=== PATIENT | male | born 1950 | race Caucasian/White ===

== ENCOUNTER 2016-08-09 10:53 | Observation (INO) | payer MEDICARE ==
[~2016-08-09] VITALS: Ht 195.6 cm; Wt 93.3 kg
[2016-08-09] VITALS (11 sets, daily range): BP systolic 125–152; BP diastolic 74–99; PULSE 55–75; RESP 15–18; TEMP 96.3–98; O2SAT 94–99
[2016-08-09] MEDS ORDERED: BISO5TAB2 PO (11:04)
[2016-08-09] MEDS ORDERED: ASPI81CH CHEW (11:04)
[2016-08-09] MEDS ORDERED: SIMV40TA PO (11:04)
[2016-08-09] MEDS ORDERED: SODIUM CHLORIDE 0.9% FLUSH 5 ML FLUSH IVF PRN ×2 (11:15→13:00)
[2016-08-09] MEDS ORDERED: ASPIRIN 81 MG CHEW TAB PO ONE (11:15)
--- NOTE | 2016-08-09 11:15 | PD ---
HPI Chief Complaint: Chest Pain Time Seen by Provider: 10:56 Travel History International Travel<30 days: No Contact w/Intl Traveler<30days: No Traveled to known affect area: No History of Present Illness HPI Patient 66-year-old male presents emergency department for evaluation of left- sided chest and shoulder pain for the past 6 months. Patient states is not coming and going but does wax and wane. Patient [place] was hurting him worse and he told his about it. The states that this is the first time he is told her about it and they decided to come in and be seen. He does have a history of hyperlipidemia and hyper tension. Denies smoking history denies current artery disease denies diabetes. Patient states he had something similar happen to him approximately 30 years ago and had a stress test that time which was negative. He is from [place]. He states that the symptoms do not get worse when he exercises and exercises quite frequently. Denies any shortness of breath nausea or vomiting. Denies history of trauma. PFSH Past Medical History Hx Anticoagulant Therapy: Yes (asa) High Cholesterol: Yes Diminished Hearing: No GERD: Yes (hiatal hernia) Gout: Yes Genitourinary: Yes (only one kidney) Hypertension: Yes Immunizations Current: Yes Tetanus Vaccination: < 5 Years Influenza Vaccination: Yes Past Surgical History Genitourinary Surgery: Yes (testicles) Other Surgery: Yes (deviated septum) Family History Family Myocardial Infarction: Yes (parents) Family Hypercholesterolemia: Yes (parents) Social History Alcohol Use: Yes (1-2 daily) Tobacco Use: No Substance Use: No Allergies-Medications (Allergen,Severity, Reaction): Coded Allergies: No Known Allergies (Unverified , 08/09/16) Reported Meds & Prescriptions Reported Meds & Active Scripts Active Reported Simvastatin 40 Mg Tab 40 Mg PO HS Aspirin 81 Mg Chew 81 Mg CHEW DAILY Bisoprolol-Hydrochlorothiazide 5-6.25 Mg Tab 1 Tab PO DAILY Review of Systems Except as stated in HPI: all other systems reviewed are Neg Physical Exam Narrative GENERAL: Well-developed well-nourished no apparent distress SKIN: Warm and dry. HEAD: Atraumatic. Normocephalic. EYES: Pupils equal and round. No scleral icterus. No injection or drainage. ENT: No nasal bleeding or discharge. Mucous membranes pink and moist. NECK: Trachea midline. No JVD. CARDIOVASCULAR: Regular rate and rhythm. No murmur appreciated. RESPIRATORY: No accessory muscle use. Clear to auscultation. Breath sounds equal bilaterally. GASTROINTESTINAL: Abdomen soft, non-tender, nondistended. Hepatic and splenic margins not palpable. MUSCULOSKELETAL: No obvious deformities. No clubbing. No cyanosis. No edema. Patient states the pain is primarily in the anterior shoulder on the left upper chest wall overriding the lateral most pectoral muscle. No pain on passive range of motion. No pain on active range of motion. Pulses motor and sensory intact distally. NEUROLOGICAL: Awake and alert. No obvious cranial nerve deficits. Motor grossly within normal limits. Normal speech. PSYCHIATRIC: Appropriate mood and affect; insight and judgment normal. Data Data Last Documented VS Vital Signs Date Time Temp Pulse Resp B/P Pulse Ox O2 Delivery O2 Flow Rate FiO2 08/09/16 11:15 64 18 152/99 99 Room Air 145/83 08/09/16 11:04 98.0 Orders Electrocardiogram (08/09/16 11:10) Ckmb (Isoenzyme) Profile (08/09/16 11:10) Complete Blood Count With Diff (08/09/16 11:10) Comprehensive Metabolic Panel (08/09/16 11:10) Magnesium (Mg) (08/09/16 11:10) Prothrombin Time / Inr (Pt) (08/09/16 11:10) Act Partial Throm Time (Ptt) (08/09/16 11:10) Troponin I (08/09/16 11:10) Chest, Single Ap (08/09/16 11:10) Ecg Monitoring (08/09/16 11:10) Bilateral Bp Monitoring (08/09/16 11:10) Iv Access Insert/Monitor (08/09/16 11:10) Oximetry (08/09/16 11:10) Oxygen Administration (08/09/16 11:10) Aspirin Chew (Aspirin Chew) (08/09/16 11:15) Sodium Chloride 0.9% Flush (Ns Flush) (08/09/16 11:15) CKMB (08/09/16 11:00) CKMB% (08/09/16 11:00) Labs Laboratory Tests Test 08/09/16 11:00 White Blood Count 9.4 TH/MM3 Red Blood Count 6.02 MIL/MM3 Hemoglobin 18.4 GM/DL Hematocrit 56.4 % Mean Corpuscular Volume 93.6 FL Mean Corpuscular Hemoglobin 30.5 PG Mean Corpuscular Hemoglobin 32.6 % Concent Red Cell Distribution Width 13.3 % Platelet Count 240 TH/MM3 Mean Platelet Volume 8.4 FL Neutrophils (%) (Auto) 65.8 % Lymphocytes (%) (Auto) 23.9 % Monocytes (%) (Auto) 8.8 % Eosinophils (%) (Auto) 0.7 % Basophils (%) (Auto) 0.8 % Neutrophils # (Auto) 6.2 TH/MM3 Lymphocytes # (Auto) 2.2 TH/MM3 Monocytes # (Auto) 0.8 TH/MM3 Eosinophils # (Auto) 0.1 TH/MM3 Basophils # (Auto) 0.1 TH/MM3 CBC Comment DIFF FINAL Differential Comment Prothrombin Time 12.4 SEC Prothromb Time International 1.1 RATIO Ratio Activated Partial 28.5 SEC Thromboplast Time Sodium Level 144 MEQ/L Potassium Level 3.2 MEQ/L Chloride Level 105 MEQ/L Carbon Dioxide Level 27.6 MEQ/L Anion Gap 11 MEQ/L Blood Urea Nitrogen 18 MG/DL Creatinine 1.50 MG/DL Estimat Glomerular Filtration 47 ML/MIN Rate Random Glucose 120 MG/DL Calcium Level 8.8 MG/DL Magnesium Level 2.0 MG/DL Total Bilirubin 0.7 MG/DL Aspartate Amino Transf 19 U/L (AST/SGOT) Alanine Aminotransferase 24 U/L (ALT/SGPT) Alkaline Phosphatase 65 U/L Total Creatine Kinase 126 U/L Creatine Kinase MB 1.9 NG/ML Troponin I LESS THAN 0.02 NG/ML Total Protein 7.5 GM/DL Albumin 3.6 GM/DL [facility] Medical Decision Making Medical Screen Exam Complete: Yes Emergency Medical Condition: Yes Interpretation(s) EKG shows sinus arrhythmia at a rate of 63. Q waves in 3 and aVF undetermined significance. No acute ST-T changes. This an abnormal EKG. No previous for comparison. Differential Diagnosis Chest pain, atypical chest pain, left shoulder pain, left shoulder strain, PE briefly considered but highly unlikely patient has no shortness of breath symptoms, pneumonia unlikely. Narrative Course Patient roomed emerged Department, he appears well in no apparent distress. No chest pain on arrival. Location of his pain suggests a shoulder strain but the patient has no pain on motions of the shoulder. Initial workup shows hemoglobin elevated to 18, consider polycythemia vera versus dehydration but clinically the patient is not dehydrated. Creatinine minimally elevated to 1.5 a BUN of 18. Patient troponin is negative. Remains chest pain-free in emerged from her. Given aspirin normal saline bolus, discussed statistical analysis chest pain workup and given negative troponin and his fairly atypical presentation I highly doubt cardiac as a cause however the patient would like to be completely ruled out and for that reason I recommended a stress test. He is agreeable to staying chest pain center overnight. Diagnosis Primary Impression: Chest pain Silvestre Evans MD Aug 09, 2016 11:15
[2016-08-09 11:20] LABS: AUTOMATED NEUTROPHIL # 6.2 TH/MM3 (1.8-7.7); BASOPHIL # 0.1 TH/MM3 (0-0.2); BASOPHIL % 0.8 % (0.0-2.0); EOSINOPHIL # 0.1 TH/MM3 (0-0.4); EOSINOPHIL % 0.7 % (0.0-4.0); HEMATOCRIT 56.4 % (39.0-51.0); HEMO FLAGS DIFF FINAL; LYMPH % 23.9 % (9.0-44.0); LYMPHOCYTE # 2.2 TH/MM3 (1.0-4.8); MEAN CELL VOLUME 93.6 FL (80.0-100.0); MEAN CORPUSCULAR HEMOGLOBIN 30.5 PG (27.0-34.0); MEAN CORPUSCULAR HGB CONC 32.6 % (32.0-36.0); MONO % 8.8 % (0.0-8.0); NEUT % 65.8 % (16.0-70.0); PLATELET COUNT 240 TH/MM3 (150-450); RED BLOOD COUNT 6.02 MIL/MM3 (4.50-5.90); RED CELL DISTRIBUTION WIDTH 13.3 % (11.6-17.2); WHITE BLOOD COUNT 9.4 TH/MM3 (4.0-11.0)
[2016-08-09 11:28] LABS: CHLORIDE 105 MEQ/L (98-107); POTASSIUM 3.2 MEQ/L (3.5-5.1); SODIUM (NA) 144 MEQ/L (136-145)
--- NOTE | 2016-08-09 11:28 | RADHPO ---
EXAM DATE/TIME: 08/09/2016 11:19 [facility] COMPARISON: No previous studies available for comparison. INDICATIONS : Chest pain MEDICAL HISTORY : None. SURGICAL HISTORY : None. ENCOUNTER: Initial ACUITY: 3 months PAIN SCORE: 6/10 LOCATION: Bilateral chest FINDINGS: A single view of the chest demonstrates the lungs to be symmetrically aerated without evidence of mas s, infiltrate or effusion. The cardiomediastinal contours are unremarkable. Osseous structures are intact. CONCLUSION: No acute disease. Igor Cheema MD on August 09, 2016 at 11:26 Board Certified Radiologist. This report was verified electronically.
[2016-08-09 11:31] LABS: ANION GAP 11 MEQ/L (5-15); APTT (PATIENT) 28.5 SEC (24.3-30.1); BICARBONATE 27.6 MEQ/L (21.0-32.0); INTERNATIONAL NORMALIZED RATIO 1.1 RATIO; PROTHROMBIN TIME - PATIENT 12.4 SEC (9.8-11.6)
[2016-08-09 11:32] LABS: BLOOD UREA NITROGEN 18 MG/DL (7-18)
[2016-08-09 11:34] LABS: ALT (GPT) 24 U/L (12-78); AST (GOT) 19 U/L (15-37)
[2016-08-09 11:35] LABS: GLOMERULAR FILTRATION RATE 47 ML/MIN (>89)
[2016-08-09 11:36] LABS: TOTAL BILIRUBIN ADULT 0.7 MG/DL (0.2-1.0)
[2016-08-09 11:37] LABS: ALKALINE PHOSPHATASE 65 U/L (45-117); CREATINE KINASE 126 U/L (39-308)
[2016-08-09 11:49] LABS: CKMB 1.9 NG/ML (0.5-3.6)
[2016-08-09] MEDS ORDERED: SODIUM CHLOR 0.9% 1000 ML INJ 1,000 ML IV ONE (12:15)
[2016-08-09] MEDS ORDERED: ONDANSETRON HCL 4 MG/2 ML VIAL IV PRN (13:00)
[2016-08-09] MEDS ORDERED: ACETAMINOPHEN 500 MG CPLT PO PRN (13:00)
[2016-08-09] MEDS ORDERED: MORPHINE SULFATE 4 MG/ML INJ IV PRN (13:00)
[2016-08-09] MEDS ORDERED: NITROGLYCERIN 0.4 MG SL 25 TABS/BTL SL PRN (13:00)
[2016-08-09] MEDS ORDERED: ACETAMINOPHEN/HYDROcodone 325 MG/7.5 MG TAB PO PRN (13:00)
[2016-08-09] MEDS ORDERED: TEMAZEPAM 15 MG CAP PO PRN (13:00)
--- NOTE | 2016-08-09 13:27 | HHI.HP ---
[facility] Non-Staff Admission Diagnosis Chest Pain Diagnoses: (1) Chest pain Diagnosis: Principal (2) Hypertension Diagnosis: Secondary (3) Hyperlipidemia Diagnosis: Secondary (4) Family history of heart disease Diagnosis: Secondary Chief Complaint: Chest pain Travel History International Travel<30 Days: No Contact w/Intl Traveler <30 Da: No Traveled to Known Affected Are: No History of Present Illness 66 year-old male with known history of hypertension, hyperlipidemia presented to hospital because of chest pain. Patient came to the hospital for evaluation chest pain at the request of his . Patient has been having an left anterior chest pain for over 3 months. It is located in the left anterior part of the chest and describes it as a pressure type sensation, has been constant 3/10 over the last few months. He states that it does get worse whenever he does walk or exert himself, however if he sits and relaxes the pain will go back down to its normal constant pain. He states it is not exacerbated by any movement of his arm, heavy lifting or moving. He denies any nausea, vomiting, diaphoresis, shortness of breath, dyspnea, lightheadedness, dizziness. Patient states that it is been many years since she's had a stress test. He has not had any cardiac workup in the last few years. Patient was evaluated in emergency department recommended chest pain center observation. Review of Systems Constitutional: DENIES: Diaphoretic episodes, Fatigue, Fever, Weight gain, Weight loss, Chills, Dizziness, Change in appetite, Night Sweats Eyes: DENIES: Blurred vision, Diplopia, Eye inflammation, Eye pain, Vision loss , Double Vision Ears, nose, mouth, throat: DENIES: Vertigo, Nasal discharge, Throat pain, Ear Pain, Running Nose, Sinus Pain Respiratory: DENIES: Apneas, Cough, Snoring, Wheezing, Hemoptysis, Sputum production, Shortness of breath Cardiovascular: COMPLAINS OF: Chest pain, DENIES: Palpitations, Syncope, Dyspnea on Exertion, Lower Extremity Edema, Orthopnea Gastrointestinal: DENIES: Abdominal pain, Black stools, Bloody stools, Constipation, Diarrhea, Nausea, Vomiting, Difficulty Swallowing, Anorexia Neurologic: DENIES: Abnormal gait, Headache, Localized weakness, Paresthesias, Seizures, Speech Problems, Tremor, Poor Balance Past Family Social History Past Medical History Hypertension Hyperlipidemia Past Surgical History Plantar fasciitis surgery Hammertoe surgery Deviated septum surgery Surgery for undescended testicle Reported Medications Reported Meds & Active Scripts Active Reported Simvastatin 40 Mg Tab 40 Mg PO HS Aspirin 81 Mg Chew 81 Mg CHEW DAILY Bisoprolol-Hydrochlorothiazide 5-6.25 Mg Tab 1 Tab PO DAILY Allergies: Coded Allergies: No Known Allergies (Unverified , 08/09/16) Family History Reviewed is significant for both mother and father having coronary disease, coronary bypass surgery and from cardiac disease Social History Patient drinks one alcohol beverage daily. Denies any tobacco or illicit drugs Physical Exam Vital Signs Vital Signs Date Time Temp Pulse Resp B/P Pulse Ox O2 Delivery O2 Flow Rate FiO2 08/09/16 12:14 64 18 146/89 95 Room Air 08/09/16 11:15 64 18 152/99 99 Room Air 145/83 08/09/16 11:15 99 Room Air 08/09/16 11:15 99 Room Air 08/09/16 11:07 69 99 Room Air 08/09/16 11:04 98.0 69 18 152/99 99 Physical Exam GENERAL: This is a well-nourished, well-developed patient, in no apparent distress. SKIN: No rashes, ecchymoses or lesions. Cool and dry. HEAD: Atraumatic. Normocephalic. No temporal or scalp tenderness. EYES: Pupils equal round and reactive. Extraocular motions intact. No scleral icterus. No injection or drainage. ENT: Nose without bleeding, purulent drainage or septal hematoma. Throat without erythema, tonsillar hypertrophy or exudate. Uvula midline. Airway patent. NECK: Trachea midline. No JVD or lymphadenopathy. Supple, nontender, no meningeal signs. CARDIOVASCULAR: Regular rate and rhythm without murmurs, gallops, or rubs. RESPIRATORY: Clear to auscultation. Breath sounds equal bilaterally. No wheezes , rales, or rhonchi. GASTROINTESTINAL: Abdomen soft, non-tender, nondistended. No hepato-splenomegaly , or palpable masses. No guarding. MUSCULOSKELETAL: Extremities without clubbing, cyanosis, or edema. No joint tenderness, effusion, or edema noted. No calf tenderness. Negative Homans sign bilaterally. NEUROLOGICAL: Awake and alert. Cranial nerves II through XII intact. Motor and sensory grossly within normal limits. Five out of 5 muscle strength in all muscle groups. Normal speech. Laboratory Laboratory Tests Test 08/09/16 11:00 White Blood Count 9.4 Red Blood Count 6.02 Hemoglobin 18.4 Hematocrit 56.4 Mean Corpuscular Volume 93.6 Mean Corpuscular Hemoglobin 30.5 Mean Corpuscular Hemoglobin 32.6 Concent Red Cell Distribution Width 13.3 Platelet Count 240 Mean Platelet Volume 8.4 Neutrophils (%) (Auto) 65.8 Lymphocytes (%) (Auto) 23.9 Monocytes (%) (Auto) 8.8 Eosinophils (%) (Auto) 0.7 Basophils (%) (Auto) 0.8 Neutrophils # (Auto) 6.2 Lymphocytes # (Auto) 2.2 Monocytes # (Auto) 0.8 Eosinophils # (Auto) 0.1 Basophils # (Auto) 0.1 CBC Comment DIFF FINAL Differential Comment Prothrombin Time 12.4 Prothromb Time International 1.1 Ratio Activated Partial 28.5 Thromboplast Time Sodium Level 144 Potassium Level 3.2 Chloride Level 105 Carbon Dioxide Level 27.6 Anion Gap 11 Blood Urea Nitrogen 18 Creatinine 1.50 Estimat Glomerular Filtration 47 Rate Random Glucose 120 Calcium Level 8.8 Magnesium Level 2.0 Total Bilirubin 0.7 Aspartate Amino Transf 19 (AST/SGOT) Alanine Aminotransferase 24 (ALT/SGPT) Alkaline Phosphatase 65 Total Creatine Kinase 126 Creatine Kinase MB 1.9 Troponin I LESS THAN 0.02 Total Protein 7.5 Albumin 3.6 Result Diagram: 08/09/16 1100 08/09/16 1100 Assessment and Plan Assessment and Plan Chest pain, atypical: Patient does have increased risk factors to include age, hypertension, hyperlipidemia, family history of heart disease. We'll continue to trend cardiac enzymes and serial EKGs rule out any acute coronary event. If patient has been ruled out will pursue exercise stress test rule out any underlying ischemia. Will continue aspirin, nitroglycerin as needed, Lortab/ morphine for pain control Hypertension, hyperlipidemia: Resume home medications DVT prevention: Sequential compression devices Written by Lisandro Santo PA-C, acting as scribe for Dr. Abdul on 08/09/16 at 1330. The documentation accurately reflects the work and decisions performed face-to- face by Dr. Abdul on 08/09/16 at 1330. Lisandro Santo Aug 09, 2016 13:26 Naomy Abdul MD Aug 09, 2016 15:47
[2016-08-09 14:24] LABS: CREATINE KINASE 109 U/L (39-308)
[2016-08-09 14:36] LABS: CKMB 1.7 NG/ML (0.5-3.6)
[2016-08-09 17:18] LABS: CREATINE KINASE 107 U/L (39-308)
[2016-08-09 17:31] LABS: CKMB 1.7 NG/ML (0.5-3.6)
[2016-08-09] MEDS: SODIUM CHLORIDE 0.9% FLUSH 5 ML FLUSH IVF SCH (20:58)
[2016-08-09] MEDS ORDERED: PRAVASTATIN SOD 40 MG TAB PO SCH (21:00)
[2016-08-10] VITALS: BP 112/80; PULSE 50; RESP 18; TEMP 96.8; O2SAT 94
[2016-08-10 04:00] VITALS: BP 127/77; PULSE 83; RESP 18; TEMP 97.4; O2SAT 92
[2016-08-10 07:43] VITALS: O2SAT 96
[2016-08-10 07:46] LABS: AUTOMATED NEUTROPHIL # 5.1 TH/MM3 (1.8-7.7); BASOPHIL # 0.1 TH/MM3 (0-0.2); BASOPHIL % 0.8 % (0.0-2.0); EOSINOPHIL # 0.1 TH/MM3 (0-0.4); EOSINOPHIL % 1.2 % (0.0-4.0); HEMATOCRIT 53.5 % (39.0-51.0); HEMO FLAGS DIFF FINAL; LYMPH % 29.9 % (9.0-44.0); LYMPHOCYTE # 2.5 TH/MM3 (1.0-4.8); MEAN CELL VOLUME 92.6 FL (80.0-100.0); MEAN CORPUSCULAR HEMOGLOBIN 30.4 PG (27.0-34.0); MEAN CORPUSCULAR HGB CONC 32.8 % (32.0-36.0); MONO % 6.9 % (0.0-8.0); NEUT % 61.2 % (16.0-70.0); PLATELET COUNT 227 TH/MM3 (150-450); RED BLOOD COUNT 5.78 MIL/MM3 (4.50-5.90); RED CELL DISTRIBUTION WIDTH 13.5 % (11.6-17.2); WHITE BLOOD COUNT 8.4 TH/MM3 (4.0-11.0)
[2016-08-10 07:53] LABS: POTASSIUM 3.6 MEQ/L (3.5-5.1)
[2016-08-10 07:56] LABS: BICARBONATE 29.6 MEQ/L (21.0-32.0)
[2016-08-10 08:00] VITALS: BP 118/86; PULSE 65; PULSE 69; RESP 20; TEMP 97.1; O2SAT 96
[2016-08-10] MEDS ORDERED: ASPIRIN 325 MG TAB PO SCH (09:00)
[2016-08-10] MEDS ORDERED: ZIAC PO SCH ×2 (09:00)
[2016-08-10] MEDS: SODIUM CHLORIDE 0.9% FLUSH 5 ML FLUSH IVF SCH (10:08)
[2016-08-10] MEDS ORDERED: REGADENOSON INJ 0.4 MG/5 ML SYR IV ONE (11:19)
[2016-08-10 12:00] VITALS: BP 118/86; PULSE 65; RESP 20; TEMP 97.1; O2SAT 96
--- NOTE | 2016-08-10 12:16 | HHI.PR ---
Subjective Remarks Patient seen and examined today with Dr. Abdul. Patient denies any active chest pain this time. Awaiting cardiac workup with stress test to be complete Objective Vitals Vital Signs Date Time Temp Pulse Resp B/P Pulse Ox O2 Delivery O2 Flow Rate FiO2 08/10/16 08:00 69 08/10/16 08:00 97.1 65 20 118/86 96 08/10/16 07:43 96 21 08/10/16 04:00 97.4 83 18 127/77 92 08/10/16 00:00 96.8 50 18 112/80 94 08/09/16 21:03 96.3 55 16 126/76 97 08/09/16 20:10 55 08/09/16 19:43 94 21 08/09/16 18:01 75 08/09/16 17:11 96.9 58 15 125/74 96 08/09/16 16:17 68 18 141/77 95 Room Air 08/09/16 14:34 97 21 08/09/16 14:02 62 18 130/80 97 Room Air 08/09/16 12:14 64 18 146/89 95 Room Air I/O 08/09/16 08/09/16 08/09/16 08/10/16 08/10/16 08/10/16 07:00 15:00 23:00 07:00 15:00 23:00 Intake Total 1120 ml Balance 1120 ml Intake Oral 120 ml IV Total 1000 ml # Voids 2 2 # Bowel Movements 0 Result Diagram: 08/10/16 0730 08/10/16 0730 Objective Remarks GENERAL: Well-developed, well-nourished, in no acute distress. alert and orientated HEENT: Head is normocephalic without any lesions or masses noted. Facial features are symmetric. Eyes: Extraocular muscles are intact. Conjunctivae were clear. NECK: Supple without any masses. Trachea midline no deviation. No JVD, CARDIAC: Regular rhythm, regular rate. S1/S2 are heard. No murmurs gallops or rubs. LUNGS: Clear to auscultation bilaterally. No wheeze, rhonchi or rales. No use of accessory muscles on inspiration or expiration. ABDOMEN: Soft, nontender. Nondistended. Bowel sounds heard in all 4 quadrants. No organomegaly or masses. Negative rebound, negative guarding EXTREMITIES: No edema, pulses are equal bilaterally. No cyanosis or clubbing NEUROLOGY: Mood and affect appear appropriate. Cranial nerves II through XII grossly intact. Moving all extremities, speech is clear with Urinary Catheter: No Vascular Central Line Catheter: No A/P Assessment and Plan Chest pain, atypical: Patient does have increased risk factors to include age, hypertension, hyperlipidemia, family history of heart disease. Patient was ruled out for any acute coronary event with serial cardiac enzymes which are negative, serial EKGs shows sinus rhythm without any changes. Patient did undergo exercise stress test which did show abnormalities in the inferior lateral leads with ST depressions. Patient did develop PVCs during peak phase. Discussed with Dr Mcintyre, auto service station attendant who recommended nuclear stress test for further evaluation. Will continue aspirin, nitroglycerin as needed, Lortab/ morphine for pain control. Nuclear stress test was performed and was negative for any ischemia with low risk. Discussed with Client Support Professional again, he indicated that after further review of the exercise stress test, the patient could benefit from a formal Cardiology evaluation, The auto service station attendant offered his services and would see the patient tomorrow in his office. Tried to contact patient via phone and left message for the patient with the Cardiologists office number and to contact his office tomorrow AM to see the auto service station attendant tomorrow Hypertension, hyperlipidemia: Resume home medications DVT prevention: Sequential compression devices Written by Lisandro Santo PA-C, acting as scribe for Dr. Abdul on 08/10/16 at 1200. The documentation accurately reflects the work and decisions performed face-to- face by Dr. Abdul on 08/10/16 at 1200. Lisandro Santo Aug 10, 2016 12:16 Naomy Abdul MD Aug 10, 2016 13:21
--- NOTE | 2016-08-10 12:30 | RADHPO ---
EXAM DATE/TIME: 08/10/2016 11:38 [facility] COMPARISON: No previous studies available for comparison. INDICATIONS : Left chest and shoulder pain for 6 months. Abnormal EKG. Abnormal exercise treadmill test. DOSE: 26.2 mCi Tc99m Myoview at stress. 8.5 mCi Tc99m Myoview at rest. 0.4 mg Lexiscan STRESS SYMPTOMS: Dyspnea. EJECTION FRACTION: 66% MEDICAL HISTORY : Hypercholesterolemia. Hypertension. Hernia, hiatal. GERD. SURGICAL HISTORY : Testicles. ENCOUNTER: Initial ACUITY: 4 - 6 months PAIN SCALE: 3/10 LOCATION: Left chest TECHNIQUE: The patient underwent pharmacologic stress with infusion of prescribed dose. Continuous ECG tracing was monitored during stress. Gated SPECT imaging was performed after stress and conventional SPECT i maging was performed at rest. The examination was performed on a SPECT/CT scanner, both attenuation and non-corrected datasets were reviewed. FINDINGS: DISTRIBUTION: The maximum perfused segment at stress is in the septal wall. PERFUSION STUDY: The pattern of perfusion at stress shows some relative diminished perfusion to the apex without rever sibility to suggest ischemia. GATED STUDY: There is intact wall motion and thickening without hypokinetic or dyskinetic segments. CONCLUSION: 1. Mild apical thinning without infarct or ischemia. 2. Excellent wall motion throughout with an estimated ejection fraction of 66%. RISK CATEGORY: Low (<1% Annual Mortality Rate) Saúl Whitman MD on August 10, 2016 at 12:26 Board Certified Radiologist. This report was verified electronically.
--- NOTE | 2016-08-10 13:11 | HHI.DCPOC ---
Discharge Care Plan Diagnosis: (1) Chest pain Goals to Promote Your Health * To prevent worsening of your condition and complications * To maintain your health at the optimal level Directions to Meet Your Goals Take your medications as prescribed Follow your dietary instruction Follow activity as directed Keep your appointments as scheduled Take your immunizations and boosters as scheduled If your symptoms worsen call your PCP, if no PCP go to Urgent Care Center or Emergency Room Smoking is Dangerous to Your Health. Avoid second hand smoke Call the 24-hour hour crisis hotline for domestic abuse at Lisandro Santo Aug 10, 2016 13:11
--- NOTE | 2016-08-10 16:07 | EKG ---
Date Performed: 08/09/2016 Time Performed: 16:43:46 PTAGE: 66 years EKG: Sinus arrhythmia. Normal ECG PREVIOUS TRACING : 08/09/2016 14.07 Since previous tracing, no significant change noted DOCTOR: Suresh Mcintyre Interpretating Date/Time 08/10/2016 16:05:45
--- NOTE | 2016-08-10 16:07 | EKG ---
Date Performed: 08/09/2016 Time Performed: 14:07:18 PTAGE: 66 years EKG: Sinus arrhythmia. Possible inferior infarct - age undetermined Abnormal ECG PREVIOUS TRACING : 08/09/2016 10.52 Since previous tracing, no significant change noted DOCTOR: Suresh Mcintyre Interpretating Date/Time 08/10/2016 16:06:13
--- NOTE | 2016-08-10 16:08 | EKG ---
Date Performed: 08/09/2016 Time Performed: 10:52:18 PTAGE: 66 years EKG: Sinus arrhythmia. Possible inferior infarct - age undetermined Abnormal ECG NO PREVIOUS TRACING DOCTOR: Suresh Mcintyre Interpretating Date/Time 08/10/2016 16:06:19
--- NOTE | 2016-08-10 16:10 | TR ---
Date Performed: 08/10/2016 Time Performed: 09:10:18 DOCTOR: Suresh Mcintyre DRUG LIST: CLINICAL HISTORY: CHEST PAIN REASON FOR TEST: Chest pain REASON FOR ENDING: Completed Protocol OBSERVATION: Chest Pain: Limiting CONCLUSION: Patient tolerated PETROS protocol with Total Exercise Time=6:27 Maximum RV=483 % Max HR Achieved=86.0% Maximum XT=742/90, Testing stopped secondary to goals acheived. During peak exercis e, patient denied any chest pain. patient was having frequent PVC's, Patient had 0.5-[address] depress ion in inferior/lateral leads, Patient HR and BP appropriate response to exercise.During recovery pat ient was asymptomatic, ST segments returned to normal, HR and BP returned to baseline COMMENTS: ST depression noted in inferior and lateral leads. findings consistent with ischemia
--- NOTE | 2016-08-10 16:14 | TR ---
Date Performed: 08/10/2016 Time Performed: 11:37:25 DOCTOR: Suresh Mcintyre DRUG LIST: CLINICAL HISTORY: CHEST PAIN CHEST PAIN REASON FOR TEST: Chest pain REASON FOR ENDING: OBSERVATION: CONCLUSION: St depression again noted infero-laterally. Nuclear images pending COMMENTS:
[2016-08-27] MEDS ORDERED: DICL1GEL TOPICAL (10:29)
== END 2016-08-10 13:46 | disposition home or self-care (01) ==
LOC: PHED 10:53 → PHEDA 12:28 → PH3A 16:52
PROVIDERS: ADMIT Hospitalist; ATTEND Hospitalist
DX: R07.89 Other chest pain (principal); I10 Essential (primary) hypertension; E78.5 Hyperlipidemia, unspecified; I49.3 Ventricular premature depolarization; E78.00 Pure hypercholesterolemia, unspecified; R94.31 Abnormal electrocardiogram [ECG] [EKG]; K21.9 Gastro-esophageal reflux disease without esophagitis; M10.9 Gout, unspecified; Z82.49 Family history of ischemic heart disease and other diseases of the circulatory system
CPT/HCPCS: 71010; 78452; 80048; 80053; 82550; 82552; 83735; 84484; 85025; 85610; 85730; 93005; 93017; 99285; A9502; G0378; J2785; J7030

== ENCOUNTER 2016-08-14 05:51 | Day surgery (SDC) | payer MEDICARE ==
[~2016-08-14] VITALS: Ht 195.6 cm; Wt 93.2 kg
[~2016-08-14 05:51] MED LIST: ASPI81CH CHEW; BISO5TAB2 PO; SIMV40TA PO
[2016-08-14] MEDS ORDERED: SODIUM CHLOR 0.9% 1000 ML INJ 1,000 ML IV SCH ×2 (06:30→07:44)
[2016-08-14 06:40] VITALS: BP 150/89; PULSE 68; RESP 18; TEMP 97.6; O2SAT 95
[2016-08-14] MEDS ORDERED: TRIA37.53 PO (06:44)
[2016-08-14] MEDS ORDERED: FLAX100013 PO (06:44)
[2016-08-14] MEDS ORDERED: HEPARIN-NS/PF INJ 500 ML ONE (07:05)
[2016-08-14] MEDS ORDERED: MIDAZOLAM HCL 2 MG/2 ML VIAL ONE (07:06)
[2016-08-14] MEDS ORDERED: ONDANSETRON HCL 4 MG/2 ML VIAL IV PRN (07:45)
[2016-08-14] MEDS ORDERED: BACITRACIN OINT 0.9 GM PKT TOP ONE (07:45)
[2016-08-14] MEDS ORDERED: LIDOCAINE HCL 1% 50 ML VIAL INFIL PRN (07:45)
[2016-08-14] MEDS ORDERED: METOCLOPRAMIDE HCL 10 MG/2 ML VIAL IV PRN (07:45)
[2016-08-14] MEDS ORDERED: SODIUM CHLOR 0.9% 250 ML INJ 250 ML IV PRN (07:45)
[2016-08-14] MEDS ORDERED: LORazepam 2 MG/ML VIAL IV PRN (07:45)
[2016-08-14] MEDS ORDERED: SODIUM CHLORIDE 0.9% FLUSH 10 ML FLUSH IV FLUSH PRN (07:45)
[2016-08-14] MEDS ORDERED: ATROPINE SULFATE 1 MG/ML VIAL IV PRN (07:45)
[2016-08-14] MEDS ORDERED: MISC INFORMATION XX ONE (07:45)
[2016-08-14] MEDS ORDERED: IOHEXOL 350 MG/ML 100 ML BTL (for Cath Lab) OTHER ONE (07:50)
[2016-08-14] MEDS ORDERED: SODIUM CHLORIDE 0.9% FLUSH 10 ML FLUSH IV FLUSH SCH (09:00)
--- NOTE | 2016-08-14 09:52 | MA ---
cc: SURESH MCINTYRE MD DATE: 08/14/2016 PROCEDURE Cardiac catheterization. DETAILS OF PROCEDURE The patient was prepped and draped in the usual fashion. A 6 sheath was inserted percutaneously in the right femoral artery. Coronary angiography was performed with a Iona 5 catheter. A 4 and 4.5 did not fit the left system. The right coronary was cannulated with a right 4. Left ventriculography was done with a pigtail catheter. RESULTS HEMODYNAMICS Aortic pressure was 123/66. Left ventricular end-diastolic pressure was 4. There was no gradient across the aortic valve. CORONARY ANGIOGRAPHY The left main coronary was normal. The left anterior descending artery was rather densely calcified in its proximal portion. In the midportion of the artery a 75% stenosis was present. There were luminal irregularities throughout the remainder of the artery but no high-grade stenoses were seen. The left circumflex artery arose from the left main. The circumflex itself was totally occluded after the takeoff of a large obtuse marginal branch and collateralization was seen from collaterals from the circumflex system. The first obtuse marginal branch demonstrated a 90% stenosis in its proximal portion with luminal irregularities in its proximal portion but relatively free from disease in the distal portion of the artery. A ramus intermedius branch also demonstrated a 75-80% stenosis in its midportion. The right coronary was anatomically dominant. It was totally occluded in the midportion with bridging collaterals noted to fill out the distal portion of the artery as well as faint collaterals from the left system. LEFT VENTRICULOGRAPHY The left ventricle was normal in size. Overall left ventricular ejection fraction was normal at approximately 65%. The ascending aorta appeared to be rather significantly dilated. CONCLUSIONS The patient demonstrates rather significant three-vessel coronary artery disease as described above with what appears to be an ascending aortic aneurysm. CTA will be ordered to further evaluate his ascending aorta and a surgical consult will be done to evaluate for CABG to the LAD, ramus, obtuse marginal, distal right and hopefully distal circumflex. Suresh Mcintyre MD DLW/BT /7:51 AM /10:51 AM
[2016-08-14] MEDS ORDERED: IOHEXOL 350 MG/ML 10 ML VIAL (for RAD DIAG) IV ONE (09:56)
--- NOTE | 2016-08-14 10:31 | RADRPT ---
EXAM DATE/TIME: 08/14/2016 09:28 [facility] COMPARISON: No previous studies available for comparison. INDICATIONS : Aneurysm ascending aorta. IV CONTRAST: 100 cc Omnipaque 350 (iohexol) IV RADIATION DOSE: 7.37 CTDIvol (mGy) MEDICAL HISTORY : Hypertension. Hernia, hiatal. SURGICAL HISTORY : None. ENCOUNTER: Initial ACUITY: 1 day PAIN SCALE: 0/10 LOCATION: chest abdomen TECHNIQUE: Volumetric scanning was performed using a multi-row detector CT scanner. The data was post processed with a variety of visualization algorithms including full volume maximum intensity projection, multi -planar sliding thin slab reformation, curved planar reformation, and surface rendering techniques. Using automated exposure control and adjustment of the mA and/or kV according to patient size, radiat ion dose was kept as low as reasonably achievable to obtain optimal diagnostic quality images. FINDINGS: LUNGS: There is no consolidation or pneumothorax. No concerning pulmonary nodule is visualized. No pleural fluid is present. MEDIASTINUM: There are coronary artery calcifications identified. There is no evidence of mediastinal mass or flores opathy. ABDOMEN: The liver and spleen are free of focal defects. The gallbladder and pancreas demonstrate no abnormali ty. The adrenal glands are normal. The kidneys demonstrate no evidence of solid renal mass or hydrone phrosis. The left kidney is chronically atretic. No free fluid or abdominal masses are identified. No para-aortic adenopathy is seen. PELVIS: No evidence of free fluid or pelvic mass. No abnormally enlarged inguinal or retroperitoneal lymph no andres are present. The bladder is unremarkable. There is some induration in the subcutaneous tissues of the medial right groin region, presumably some hematoma and swelling associated with recent catheter procedure. THORACIC AORTA: The ascending thoracic aorta is aneurysmal to about 5.2 cm. The arch caliber normalizes and classical arch vessel branching is identified. The remainder of the thoracic aorta is normal in caliber and ap pearance with no evidence of stenosis or dissection. ABDOMINAL AORTA: The aorta is normal in caliber without aneurysm or dissection. Mild atherosclerotic changes The righ t renal artery is normal. Left renal artery is atretic. Variance mesenteric arterial anatomy is ident ified. The left gastric artery arises directly from the aorta. The celiac and SMA arise from a common trunk. PELVIC VESSELS: Mild atherosclerotic changes. No evidence of aneurysm, dissection or significant stenosis. CONCLUSION: 5.2 cm ascending thoracic aortic aneurysm. 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 Mild swelling and hematoma in the right groin. Joseph Kirkpatrick MD on August 14, 2016 at 10:14 Board Certified Radiologist. This report was verified electronically.
[2016-08-14] MEDS ORDERED: SODIUM CHLORIDE 0.9% FLUSH 10 ML FLUSH IVF PRN (11:30)
[2016-08-14 12:17] LABS: BLOOD, URINE NEG (NEG); COMMENT (UR) CULT NOT INDICATED; CULTURE IF INDICATED CULT NOT INDICATED; GLUCOSE,URINE TRACE mg/dL (NEG); KETONE, URINE NEG (NEG); MUCUS URINE FEW /lpf (OCC); NITRITE,URINE NEG (NEG); PH, URINE 7.5 (5.0-8.5); URINE COLOR LIGHT-YELLOW (YELLW/STRAW)
--- NOTE | 2016-08-14 12:44 | MB ---
cc: TIMOTHY KELLEY MD DATE OF CONSULTATION: 08/14/2016 DATE OF : 1950 HISTORY OF PRESENT ILLNESS A 66-year-old male who presented to the emergency department in [place] for chest pain that he has been having intermittently off and on with exertion for the past one month. He thought it was more muscular tightness. The pain was in his left upper chest and shoulder. He was a 23-hour observation at [place], had a negative troponin, however, he did undergo exercise stress test which showed some ST depression in the inferior and lateral leads consistent with some ischemia. He then underwent a myocardial perfusion scan which showed some mild apical thinning without infarct or ischemia, EF of 66%. He was brought in today for a heart catheterization by Dr. Suresh Mcintyre. EF was 60%, 75% distal LAD, circumflex 90%, OM 90%, RCA 100%. We were consulted to evaluate for coronary artery bypass grafting. PAST MEDICAL HISTORY 1. Hypertension. 2. Hyperlipidemia. PAST SURGICAL HISTORY 1. Testicle surgery as a child. 2. Nasal surgery. 3. Hammertoe surgery. ALLERGIES He has no known allergies. MEDICATIONS Home medications include: 1. Aspirin. 2. Simvastatin. 3. Dyazide. 4. Flaxseed. FAMILY HISTORY Both parents had coronary artery bypass. Mother in her 90s. Father in his 80s. SOCIAL HISTORY No tobacco. Has a Scotch drink before dinner. No illicit drugs. 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 REVIEW OF SYSTEMS GENERAL: No night sweats, fever, heat and cold intolerance. SKIN: No psoriasis, itching or hives. HEENT: No blurred vision or hearing loss. RESPIRATORY: No cough or shortness of breath. CARDIOVASCULAR: Positive for chest pain as above in the HPI. GASTROINTESTINAL: No diarrhea or vomiting. GENITOURINARY: No burning, frequency or urgency. CANDY ROLLER: No history of TIA, CVA, seizure disorder. ENDOCRINE: Diabetes. PHYSICAL EXAMINATION VITAL SIGNS: On exam blood pressure 150/80, heart rate 68, afebrile. GENERAL: Patient is awake and alert, in no acute distress. HEENT: Head is normocephalic, atraumatic. Pupils equal and reactive. Oral mucosa pink and moist. NECK: Supple. No JVD. HEART: Heart sounds S1, S2, regular rate and rhythm. No rubs, murmurs or gallops. LUNGS: Clear to auscultation. No wheezes, rales or rhonchi. ABDOMEN: Soft, nontender. No masses or organomegaly. EXTREMITIES: No cyanosis, clubbing or edema. IMAGING CTA of the aorta showed a 5.2 ascending aortic aneurysm, chronically atretic left kidney. A carotid ultrasound is pending. Chest x-ray is pending. EKG EKG is normal sinus rhythm. 2-D ECHO A 2-D echo is pending. IMPRESSION This is a 66-year-old male with positive stress test, positive cardiac catheterization with four-vessel disease, EF of 60%, also a 5.2 ascending aortic aneurysm. PLAN The plan will be to bring the patient back on August 27 for surgery including coronary artery bypass grafting, ascending aortic aneurysm repair and related procedures. Dictated by: MADELINE Watson Timothy SOTO /11:31 AM /12:43 PM
--- NOTE | 2016-08-14 13:03 | RADRPT ---
EXAM DATE/TIME: 08/14/2016 11:42 [facility] COMPARISON: No previous studies available for comparison. INDICATIONS : PreOp cardiac surgery. MEDICAL HISTORY : Hypercholesterolemia. Gastroesophageal reflux disease. Hypertension. Gout. Measles. Hiatal hernia. SURGICAL HISTORY : Testicle surgery. Deviated septum repair. ENCOUNTER: Initial ACUITY: 1 day PAIN SCORE: 0/10 LOCATION: Bilateral neck PEAK SYSTOLIC VELOCITIES (cm/sec): ICA/CCA RATIO: Right: 0.8 Left: 0.8 ICA: Right: 64 Left: 73 CCA: Right: 80 Left: 88 ECA: Right: 95 Left: 102 VERTEBRAL: Right: 42 antegrade Left: 49 antegrade Elevated flow velocities and ICA/CCA ratios have been found to correlate with increased degrees of vessel stenosis, calculated as percentage of diameter relative to a normal segment of distal ICA/CCA FINDINGS: RIGHT CAROTID: Minimal plaquing in the right carotid bulb extending up into the internal. The waveforms are within normal limits. LEFT CAROTID: Minimal plaquing in the left carotid bulb extending up into the internal. The waveforms are within n ormal limits. VERTEBRAL ARTERIES: Antegrade flow is seen in both vertebral arteries. MISCELLANEOUS: None. CONCLUSION: 1. Minimal plaquing in both carotid systems. 2. However, no Doppler findings of a hemodynamically significant stenosis. Antegrade flow in both alpesh tebral arteries. Saúl Whitman MD on August 14, 2016 at 12:57 Board Certified Radiologist. This report was verified electronically.
--- NOTE | 2016-08-14 13:06 | RADRPT ---
EXAM DATE/TIME: 08/14/2016 11:55 [facility] COMPARISON: No previous studies available for comparison. INDICATIONS : PreOp cardiac surgery. MEDICAL HISTORY : Hypercholesterolemia. Gastroesophageal reflux disease. Hypertension. Gout. Measles. Hiatal hernia. SURGICAL HISTORY : Testicle surgery. Deviated septum repair. ENCOUNTER: Initial ACUITY: 1 day PAIN SCORE: 0/10 LOCATION: Bilateral legs. TECHNIQUE: Venous ultrasound of the left and right leg was performed from the inguinal ligament to the proximal calf. Real-time, color Doppler and spectral tracing, compression and augmentation techniques were us ed. FINDINGS: RIGHT LEG: There is normal compressibility of the deep venous system from the inguinal region to the proximal ca lf. No echogenic clot is seen in the lumen of the common femoral, femoral, popliteal, and posterior tibial veins. There is a normal response of the venous system to proximal and distal augmentation an d respiration. LEFT LEG: There is normal compressibility of the deep venous system from the inguinal region to the proximal ca lf. No echogenic clot is seen in the lumen of the common femoral, femoral, popliteal, and posterior tibial veins. There is a normal response of the venous system to proximal and distal augmentation an d respiration. CONCLUSION: Negative exam. No sonographic or Doppler findings of deep venous thrombosis in either lower extr emity. Saúl Whitman MD on August 14, 2016 at 13:04 Board Certified Radiologist. This report was verified electronically.
--- NOTE | 2016-08-14 13:11 | RADRPT ---
EXAM DATE/TIME: 08/14/2016 12:02 [facility] COMPARISON: No previous studies available for comparison. INDICATIONS : PreOp cardiac surgery. MEDICAL HISTORY : Hypercholesterolemia. Gastroesophageal reflux disease. Hypertension. Gout. Measles. Hiatal hernia. SURGICAL HISTORY : Testicle surgery. Deviated septum repair. ENCOUNTER: Initial ACUITY: 1 day PAIN SCORE: 0/10 LOCATION: Bilateral legs. GREATER SAPHENOUS VEIN THIGH: PROXIMAL: Right 4 mm Left 6 mm MID: Right 4 mm Left 6 mm DISTAL: Right 2 mm Left 3 mm CALF: PROXIMAL: Right 2 mm Left 3 mm MID: Right 2 mm Left 2 mm DISTAL: Right 3 mm Left 3 mm FINDINGS: The venous system of the lower extremities are patent by color Doppler imaging. Measurements of the leg veins (in mm) are listed above. CONCLUSION: 1. Greater saphenous veins are patent bilaterally. 2. Right measures between 2 and 4 mm. The left measures between 2 and 6 mm. Saúl Whitman MD on August 14, 2016 at 13:09 Board Certified Radiologist. This report was verified electronically.
[2016-08-14 13:19] LABS: AUTOMATED NEUTROPHIL # 5.6 TH/MM3 (1.8-7.7); BASOPHIL # 0.1 TH/MM3 (0-0.2); EOSINOPHIL % 0.5 % (0.0-4.0); HEMATOCRIT 50.3 % (39.0-51.0); HEMO FLAGS DIFF FINAL; LYMPH % 23.6 % (9.0-44.0); MEAN CELL VOLUME 91.9 FL (80.0-100.0); MEAN CORPUSCULAR HEMOGLOBIN 31.1 PG (27.0-34.0); MEAN CORPUSCULAR HGB CONC 33.8 % (32.0-36.0); MONO % 10.2 % (0.0-8.0); NEUT % 64.7 % (16.0-70.0); PLATELET COUNT 208 TH/MM3 (150-450); RED BLOOD COUNT 5.48 MIL/MM3 (4.50-5.90); WHITE BLOOD COUNT 8.6 TH/MM3 (4.0-11.0)
--- NOTE | 2016-08-14 15:08 | RADRPT ---
EXAM DATE/TIME: 08/14/2016 14:16 [facility] COMPARISON: CHEST SINGLE AP, August 09, 2016, 11:19. INDICATIONS : Evaluate for pneumonia,pneumothorax and communicable diseases. Pre-op open heart MEDICAL HISTORY : Hypercholesterolemia. Hypertension Hiatal hernia. Gout SURGICAL HISTORY : Testicular ENCOUNTER: Initial ACUITY: 1 day PAIN SCORE: 0/10 LOCATION: chest FINDINGS: PA and lateral views of the chest demonstrate the lungs to be symmetrically aerated without evidence of mass, infiltrate or effusion. The cardiomediastinal contours are unremarkable. Osseous structure s are intact. CONCLUSION: 1. No acute cardiopulmonary findings Cruzito Hernandez MD on August 14, 2016 at 15:06 Board Certified Radiologist. This report was verified electronically.
[2016-08-14 16:39] LABS: ANION GAP 8 MEQ/L (5-15); BICARBONATE 29.2 MEQ/L (21.0-32.0); BLOOD UREA NITROGEN 22 MG/DL (7-18); CHLORIDE 102 MEQ/L (98-107); GLOMERULAR FILTRATION RATE 58 ML/MIN (>89); POTASSIUM 3.1 MEQ/L (3.5-5.1); SODIUM (NA) 139 MEQ/L (136-145)
[2016-08-14 17:04] LABS: HEMOGLOBIN A1b 1.5 %; HEMOGLOBIN Ao 85.7 %; HEMOGLOBIN P3 3.7 %
--- NOTE | 2016-08-14 19:03 | EC ---
Study Study Date:08/14/2016 STUDY CONCLUSIONS SUMMARY - Left ventricle: The cavity size was normal. Wall thickness was normal. Systolic function was normal. The estimated ejection fraction was 55%. Wall motion was normal; there were no regional wall motion abnormalities. - Aortic valve: Mild to moderate regurgitation. - Aortic root: The aortic root was markedly enlarged. Recommend CT angiogram of thoracic aorta. If LV function is below 40, please consider prescribing an ACEI or ARB or document rationale for non-use. PROCEDURE DATA STUDY STATUS: Elective. Procedure: Transthoracic echocardiography. Image quality was good. Scanning was performed from the parasternal, apical, and subcostal acoustic windows. Study completion: The patient tolerated the procedure well. Transthoracic echocardiography. M-mode, complete 2D, complete spectral Doppler, and color Doppler. Patient status: Inpatient. CARDIAC ANATOMY LEFT VENTRICLE: The cavity size was normal. Wall thickness was normal. Systolic function was normal. The estimated ejection fraction was 55%. Wall motion was normal; there were no regional wall motion abnormalities. AORTIC VALVE: Trileaflet; normal thickness leaflets. Doppler: Transvalvular velocity was within the normal range. There was no stenosis. Mild to moderate regurgitation. Peak gradient: 12mm Hg (S). AORTA: Aortic root: The aortic root was markedly enlarged. Recommend CT angiogram of thoracic aorta. MITRAL VALVE: Structurally normal valve. Doppler: Transvalvular velocity was within the normal range. There was no evidence for stenosis. Trace regurgitation. LEFT ATRIUM: The atrium was normal in size. RIGHT VENTRICLE: The cavity size was normal. Wall thickness was normal. PULMONIC VALVE: Doppler: Transvalvular velocity was within the normal range. There was no evidence for stenosis. No regurgitation. TRICUSPID VALVE: Structurally normal valve. Doppler: Transvalvular velocity was within the normal range. Trace regurgitation. PULMONARY ARTERY: The main pulmonary artery was normal-sized. Systolic pressure was within the normal range. RIGHT ATRIUM: The atrium was normal in size. PERICARDIUM: There was no pericardial effusion. SYSTEMIC VEINS: Inferior vena cava: The vessel was normal in size. BASIC MEASUREMENTS ADULT Normal Left ventricle LV internal dimension, ED, chordal level, *55 mm 43-52 PLAX LV internal dimension, ES, chordal level, *42.9 mm 23-38 PLAX Fractional shortening, chordal level, PLAX *22 % >29 LV posterior wall thickness, ED 8.09 mm IVS/LVPW ratio, ED 1.13 <1.3 Ventricular septum Septal thickness, ED 9.15 mm Aortic valve Leaflet separation 19 mm 15-26 Left atrium Anterior-posterior dimension 30 mm Right ventricle RV internal dimension, ED, PLAX 19.7 mm 19-38 BASIC MEASUREMENTS ADULT Normal Aortic valve Leaflet separation 19 mm 15-26 Aorta Root diameter, ED *48 mm 20-37 DOPPLER MEASUREMENTS ADULT Normal Aortic valve Peak velocity, S 171 cm/s Peak gradient, S 12 mm Hg Mitral valve Peak E-wave velocity 44.9 cm/s Peak A-wave velocity 79 cm/s Peak E/A ratio 0.6 Tricuspid valve Regurgitant peak velocity 137 cm/s Peak RV-RA gradient, S 8 mm Hg Maximal regurgitant velocity 137 cm/s LEGEND: Mean values are shown as u=mean value. Asterisk (*) leonardo values outside specified normal range. Prepared and signed by Willard Flores [id number]
[2016-08-14] MEDS ORDERED: SODIUM CHLORIDE 0.9% FLUSH 10 ML FLUSH IVF SCH (21:00)
--- NOTE | 2016-08-15 16:16 | EKG ---
Date Performed: 08/14/2016 Time Performed: 10:52:22 PTAGE: 66 years EKG: Sinus rhythm Since previous tracing, no significant change noted Normal ECG PREVIOUS TRACING : 08/09/2016 16.43 DOCTOR: Jeffrey Castro Interpretating Date/Time 08/15/2016 16:16:36
[2016-08-15] MEDS ORDERED: ASPI81TA11 PO (19:03)
[2016-08-15] MEDS ORDERED: METO25TA3 PO (19:03)
--- NOTE | 2016-08-17 08:07 | MB ---
cc: TIMOTHY KELLEY MD DATE OF CONSULTATION: 08/14/2016 DATE OF : 1950 HISTORY OF PRESENT ILLNESS A 66-year-old male patient of Dr. Suresh Mcintyre, Dr. Awilda Andres, apparently was seen for a recent hospitalization for chest pain. Went to [facility] from the to the for chest pain, 23-hour observation, had a workup including two stress tests and was told to come in today to talk about the results. He had some ST depression in the inferior lateral leads consistent with ischemia on a stress test, then he underwent myocardial perfusion scan which showed mild apical thinning without infarct or ischemia, EF of 66%. Dr. Mcintyre felt that it was necessary to undergo further testing to include coronary artery catheterization which showed middistal LAD 75% stenosed, circ 90%, the OM 90%, the RCA 100%, EF of 60%. We were consulted to evaluate for coronary artery bypass grafting. At this time, the patient is scheduled for surgery on August. PAST MEDICAL HISTORY 1. Hyperlipidemia. 2. Hypertension. PAST SURGICAL HISTORY No pertinent surgical history. ALLERGIES NO KNOWN ALLERGIES. HOME MEDICATIONS 1. Aspirin. 2. Simvastatin. 3. Dyazide. FAMILY HISTORY No pertinent family history. SOCIAL HISTORY No tobacco. The patient is , children. REVIEW OF SYSTEMS GENERAL: No night sweats, fever, heat and cold intolerance. SKIN: No psoriasis, itching or hives. HEENT: No blurred vision, hearing loss. RESPIRATORY: No cough, shortness of breath. GASTROINTESTINAL: No diarrhea, vomiting. GENITOURINARY: No burning, frequency, urgency. FINANCIAL PLANNING ADVISER: No history of TIA, CVA, seizure disorder. ENDOCRINOLOGY: No history of diabetes. PHYSICAL EXAMINATION VITAL SIGNS: Blood pressure 108/70, heart rate of 80, temp max 99.2. GENERAL: The patient awake, alert, no acute distress. HEAD, EYES, EARS, NOSE AND THROAT: Head is normocephalic, atraumatic. Pupils equal and reactive. Oral mucosa pink, moist. NECK: Supple. No JVD. CARDIOVASCULAR: Heart sounds S1, S2. Regular rate and rhythm. No rubs, murmurs, gallops. LUNGS: Clear to auscultation. No wheezes, rales or rhonchi. ABDOMEN: Abdomen is soft, nontender. No masses or organomegaly. EXTREMITIES: No cyanosis, clubbing or edema. LABORATORY WORK Sodium of 142, potassium 3.6, BUN is 70, creatinine 1.40. Hemoglobin of 15, hematocrit of 53, platelet count of 227, white cell count of 8.4. IMPRESSION This is a very pleasant 70-year-old male with recent chest pain, positive stress test multivessel disease. PLAN The plan will be for the patient to go home and come back and surgery on August. In the meantime, he is to continue his home medications. STS data will be discussed and documented in the electronic record. Further planning per Dr. Timothy Kelley. Dictated by KP Watson Timothy IBRAHIM/BJHerberth /7:14 PM /8:04 AM
--- NOTE | 2016-08-18 10:08 | RSPPFT ---
DATE OF PROCEDURE: 08/14/16 COMMENTS: Spirometry demonstrates an FEV1 of 3.6 at 79% of predicted, FVC of 4.4 at 77%, FEF 25-75 at 81%. Flow volume loops appear unremarkable. IMPRESSION: 1. Essentially normal pulmonary function study.
[2016-08-27] MEDS ORDERED: DICL1GEL TOPICAL (10:29)
== END 2016-08-14 15:46 | disposition home or self-care (01) ==
LOC: HDOC 05:51 → HDIC 05:51 → HDOC 15:46
PROVIDERS: ATTEND Internal Medicine Cardiovascular Disease
DX: I25.10 Atherosclerotic heart disease of native coronary artery without angina pectoris (principal); I77.1 Stricture of artery; E78.5 Hyperlipidemia, unspecified; I10 Essential (primary) hypertension; R07.9 Chest pain, unspecified; E78.00 Pure hypercholesterolemia, unspecified; K44.9 Diaphragmatic hernia without obstruction or gangrene; Z01.818 Encounter for other preprocedural examination; Z79.01 Long term (current) use of anticoagulants; I71.2 Thoracic aortic aneurysm, without rupture
CPT/HCPCS: 71020; 71275; 74174; 80048; 81001; 83036; 85025; 85610; 87641; 93005; 93306; 93458; 93880; 93970; 93998; 94010; C1769; C1893; J1644; J2250; J7030; Q9967

== ENCOUNTER 2016-08-15 17:29 | Inpatient (IN) | payer MEDICARE ==
[~2016-08-15] VITALS: Ht 195.6 cm; Wt 99.4 kg
[~2016-08-15 17:29] MED LIST changes: -BISO5TAB2 PO; +FLAX100013 PO; +TRIA37.53 PO
[2016-08-15 17:32] VITALS: BP 151/88; PULSE 78; RESP 20; TEMP 98; O2SAT 95
[2016-08-15] MEDS ORDERED: ASPIRIN 81 MG CHEW TAB PO ONE (18:00)
[2016-08-15] MEDS ORDERED: NITROGLYCERIN 2% OINT 1 GM PACKET TOP ONE (18:00)
[2016-08-15] MEDS ORDERED: SODIUM CHLORIDE 0.9% FLUSH 10 ML FLUSH IVF PRN ×2 (18:00→20:30)
--- NOTE | 2016-08-15 18:05 | PD ---
HPI Chief Complaint: Chest Pain Time Seen by Provider: 17:39 Travel History International Travel<30 days: No Contact w/Intl Traveler<30days: No Traveled to known affect area: No History of Present Illness HPI This is a 66-year-old gentleman with a history of hypertension, hyperlipidemia, thoracic aortic aneurysm and diffuse coronary artery disease, who is scheduled for [facility] thoracic bypass surgery and aneurysmal repair on August 27, who presents today with complaints of left sided chest pain. 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 Suresh Mcintyre, that if he had recurrent chest pain, he should come immediately to the ER. The patient reports today while watching TV he had an episode of left sided chest pain. He reports it as a burning/pressure-like pain in his left upper chest. He denies any radiation. He states it came on strong and is nearly gone now. He denied any diaphoresis, shortness of breath, nausea with the pain. There are no other complaints at the time of my examination. PFSH Past Medical History Hx Anticoagulant Therapy: Yes (LOGOS ASPIRIN ) Cancer: No Cardiovascular Problems: Yes High Cholesterol: Yes Chest Pain: Yes Diminished Hearing: No Endocrine: No Gastrointestinal Disorders: Yes GERD: Yes (hiatal hernia) Gout: Yes Genitourinary: Yes (only one kidney) Hypertension: Yes Immune Disorder: No Musculoskeletal: Yes (in knees ) Neurologic: No Psychiatric: No Reproductive: No Respiratory: No Immunizations Current: Yes Past Surgical History Genitourinary Surgery: Yes (testicles) Other Surgery: Yes (deviated septum) Family History Family Hypercholesterolemia: Yes (parents) Social History Alcohol Use: Yes (1-2 daily) Tobacco Use: No Substance Use: No Allergies-Medications (Allergen,Severity, Reaction): Coded Allergies: No Known Allergies (Unverified , 08/15/16) Reported Meds & Prescriptions Reported Meds & Active Scripts Active Reported Metoprolol Tartrate 25 Mg Tab 25 Mg PO HS Aspirin EC (Aspirin) 81 Mg Tabdr 81 Mg PO HS Flax Seed Oil (Flaxseed (Linseed)) 1,000 Mg Cap 1,000 Mg PO BID Triamterene-Hydrochlorothiazide 37.5-25 Mg Cap 1 Cap PO DAILY Simvastatin 40 Mg Tab 40 Mg PO HS Review of Systems Except as stated in HPI: all other systems reviewed are Neg General / Constitutional: No: Fever, Chills HENT: No: Headaches, Lightheadedness, Neck Pain Cardiovascular: Positive: Chest Pain or Discomfort, No: Palpitations, Irregular Rhythm Respiratory: No: Cough, Shortness of Breath Gastrointestinal: No: Nausea, Vomiting Musculoskeletal: No: Weakness, Pain Neurologic: No: Weakness, Headache Physical Exam Narrative GENERAL: Well-developed well-nourished male in no acute rest her distress SKIN: Warm and dry. HEAD: Atraumatic. Normocephalic. EYES: No scleral icterus. No injection or drainage. ENT: Mucous membranes pink and moist. NECK: Trachea midline. No JVD. CARDIOVASCULAR: Regular rate and rhythm. No murmur appreciated. RESPIRATORY: No accessory muscle use. Clear to auscultation. Breath sounds equal bilaterally. GASTROINTESTINAL: Abdomen soft, non-tender, nondistended. MUSCULOSKELETAL: No obvious deformities. No edema. NEUROLOGICAL: Awake and alert. No obvious cranial nerve deficits. Motor grossly within normal limits. Normal speech. Data Data Last Documented VS Vital Signs Date Time Temp Pulse Resp B/P Pulse Ox O2 Delivery O2 Flow Rate FiO2 08/15/16 18:22 92 Room Air 08/15/16 17:32 98.0 78 20 151/88 Orders Electrocardiogram (08/15/16 17:55) Basic Metabolic Panel (Bmp) (08/15/16 17:55) Ckmb (Isoenzyme) Profile (08/15/16 17:55) Complete Blood Count With Diff (08/15/16 17:55) Magnesium (Mg) (08/15/16 17:55) Prothrombin Time / Inr (Pt) (08/15/16 17:55) Act Partial Throm Time (Ptt) (08/15/16 17:55) Troponin I (08/15/16 17:55) Chest, Single Ap (08/15/16 17:55) Ecg Monitoring (08/15/16 17:55) Bilateral Bp Monitoring (08/15/16 17:55) Iv Access Insert/Monitor (08/15/16 17:55) Oximetry (08/15/16 17:55) Oxygen Administration (08/15/16 17:55) Aspirin Chew (Aspirin Chew) (08/15/16 18:00) Nitroglycerin 2% Oint (Nitroglycerin 2% (08/15/16 18:00) Sodium Chloride 0.9% Flush (Ns Flush) (08/15/16 18:00) Admit Order (Ed Use Only) (08/15/16 19:05) Labs Laboratory Tests Test 08/15/16 18:00 White Blood Count 10.3 TH/MM3 Red Blood Count 5.51 MIL/MM3 Hemoglobin 17.4 GM/DL Hematocrit 50.9 % Mean Corpuscular Volume 92.3 FL Mean Corpuscular Hemoglobin 31.5 PG Mean Corpuscular Hemoglobin 34.1 % Concent Red Cell Distribution Width 14.1 % Platelet Count 213 TH/MM3 Mean Platelet Volume 8.6 FL Neutrophils (%) (Auto) 62.5 % Lymphocytes (%) (Auto) 27.0 % Monocytes (%) (Auto) 9.4 % Eosinophils (%) (Auto) 0.5 % Basophils (%) (Auto) 0.6 % Neutrophils # (Auto) 6.5 TH/MM3 Lymphocytes # (Auto) 2.8 TH/MM3 Monocytes # (Auto) 1.0 TH/MM3 Eosinophils # (Auto) 0.1 TH/MM3 Basophils # (Auto) 0.1 TH/MM3 CBC Comment DIFF FINAL Differential Comment Prothrombin Time 11.3 SEC Prothromb Time International 1.0 RATIO Ratio Activated Partial 27.9 SEC Thromboplast Time Sodium Level 139 MEQ/L Potassium Level 3.4 MEQ/L Chloride Level 102 MEQ/L Carbon Dioxide Level 27.4 MEQ/L Anion Gap 10 MEQ/L Blood Urea Nitrogen 21 MG/DL Creatinine 1.45 MG/DL Estimat Glomerular Filtration 49 ML/MIN Rate Random Glucose 92 MG/DL Calcium Level 8.9 MG/DL Magnesium Level 2.1 MG/DL MDM Medical Decision Making Medical Screen Exam Complete: Yes Emergency Medical Condition: Yes Differential Diagnosis ACS versus musculoskeletal pain versus thoracic aorta dissection versus unstable angina Narrative Course 66-year-old male presents with complaints of chest pain earlier today. The patient is pain-free now. He's been given aspirin 324 mg by mouth times one dose. He also has 1/2 inch nitro paste on his anterior chest wall. The patient was told by his demolition hammer operator that if he developed chest pain he should come in and be evaluated. He is scheduled for surgery on August 27. Cardiac enzymes are pending at this time. I anticipate they will come back normal. Even so, given the patient's history, he will need to be admitted to the hospital for rule out protocol. The case was discussed with the resident service Dr. Mcintyre, senior resident. We will follow up on the cardiac enzymes and then the patient will be admitted to the service. Diagnosis Primary Impression: Chest pain Additional Impressions: Hypertension Hyperlipidemia multivessel coronary artery disease 5.6 cm thoracic aortic aneurysm Johnnie Geronimo MD Aug 15, 2016 18:05
[2016-08-15 18:22] VITALS: O2SAT 92
[2016-08-15 18:46] LABS: AUTOMATED NEUTROPHIL # 6.5 TH/MM3 (1.8-7.7); BASOPHIL # 0.1 TH/MM3 (0-0.2); BASOPHIL % 0.6 % (0.0-2.0); EOSINOPHIL # 0.1 TH/MM3 (0-0.4); EOSINOPHIL % 0.5 % (0.0-4.0); HEMATOCRIT 50.9 % (39.0-51.0); HEMO FLAGS DIFF FINAL; LYMPHOCYTE # 2.8 TH/MM3 (1.0-4.8); MEAN CELL VOLUME 92.3 FL (80.0-100.0); MEAN CORPUSCULAR HEMOGLOBIN 31.5 PG (27.0-34.0); MEAN CORPUSCULAR HGB CONC 34.1 % (32.0-36.0); MONO % 9.4 % (0.0-8.0); NEUT % 62.5 % (16.0-70.0); PLATELET COUNT 213 TH/MM3 (150-450); RED BLOOD COUNT 5.51 MIL/MM3 (4.50-5.90); RED CELL DISTRIBUTION WIDTH 14.1 % (11.6-17.2); WHITE BLOOD COUNT 10.3 TH/MM3 (4.0-11.0)
[2016-08-15 18:55] LABS: APTT (PATIENT) 27.9 SEC (24.3-30.1); PROTHROMBIN TIME - PATIENT 11.3 SEC (9.8-11.6)
[2016-08-15 19:00] LABS: ANION GAP 10 MEQ/L (5-15); BICARBONATE 27.4 MEQ/L (21.0-32.0); BLOOD UREA NITROGEN 21 MG/DL (7-18); CHLORIDE 102 MEQ/L (98-107); GLOMERULAR FILTRATION RATE 49 ML/MIN (>89); MAGNESIUM 2.1 MG/DL (1.5-2.5); SODIUM (NA) 139 MEQ/L (136-145)
[2016-08-15 19:02] LABS: POTASSIUM 3.4 MEQ/L (3.5-5.1)
[2016-08-15] MEDS ORDERED: METO25TA3 PO (19:03)
[2016-08-15] MEDS ORDERED: ASPI81TA11 PO (19:03)
--- NOTE | 2016-08-15 19:03 | RADRPT ---
EXAM DATE/TIME: 08/15/2016 18:13 [facility] COMPARISON: CHEST SINGLE AP, August 09, 2016, 11:19. INDICATIONS : Chest pain for the past few days. MEDICAL HISTORY : Hypercholesterolemia. Hypertension Hiatal hernia. Gout SURGICAL HISTORY : None. ENCOUNTER: Initial ACUITY: 3 days PAIN SCORE: 5/10 LOCATION: Bilateral chest FINDINGS: A single view of the chest demonstrates the lungs to be symmetrically aerated without evidence of mas s, infiltrate or effusion. The cardiomediastinal contours are unremarkable. Osseous structures are intact. CONCLUSION: 1. No active disease. Tortuous aorta. No change from August 09. Renny Fuentes MD on August 15, 2016 at 19:01 Board Certified Radiologist. This report was verified electronically.
[2016-08-15 19:23] LABS: CREATINE KINASE 126 U/L (39-308)
[2016-08-15 19:36] LABS: CKMB 1.4 NG/ML (0.5-3.6)
[2016-08-15 20:00] VITALS: BP 115/76; PULSE 82; RESP 16; O2SAT 96
--- NOTE | 2016-08-15 20:18 | HHI.HP ---
[facility] Service Family Medicine Primary Care Physician Non-Staff Admission Diagnosis chest pain, multivessel coronary arter diseasen, thoracic aneurysm. Diagnoses: International Travel<30 Days: No Contact w/Intl Traveler<30days: No Known Affected Area: No History of Present Illness Pt is a 66yo man who p/w chest pain. Pt p/w his who also reported some of his history. Earlier this afternoon, pt started feeling tight, pressure, burning , chest pain similar to chest pain he has had before. His chest pain is located in his left upper chest, comes and goes, severity 2-3 out of 10 pain now and at its worst. Patient denies any radiation of this pain. Pt didn't try anything at home to help his pain. Patient denies any diaphoresis, dyspnea at rest, dyspnea on exertion. Patient presented to [facility] last week. Patient followed up with record center specialist Dr. Mcintyre. Within the past couple days, Dr. Mcintyre performed a cardiac catheterization on this patient. Cardiac cath showed 5.2 cm thoracic aortic aneurysm and 4 blockages in LAD 75%, CTX 100, RCA 100, one more they can' t remember. Thus, pt is scheduled to have a CABG and thoracic aortic aneurysm repair on August [address] Whitney. Pt first had chest pain about a month ago. Pt does endorse some arm ache/tingle with exercise. Patient does have a family history of cardiac disease in both mother and father. For exercise, patient walks and goes to the fitness center 3 days per week, bikes, swims. Patient denies ever smoking. Patient has history of hypertension and hypercholesterolemia and is compliant well-controlled on medication. (Jayro Jones MD R1) Review of Systems Constitutional: DENIES: Fever, Weight loss, Chills, Dizziness, Night Sweats Endocrine: DENIES: Polydipsia, Polyuria Eyes: DENIES: Blurred vision Ears, nose, mouth, throat: DENIES: Hearing loss, Throat pain, Running Nose Respiratory: DENIES: Cough, Shortness of breath Cardiovascular: COMPLAINS OF: Chest pain, DENIES: Dyspnea on Exertion Gastrointestinal: DENIES: Abdominal pain, Black stools, Bloody stools, Constipation, Diarrhea, Nausea, Vomiting Genitourinary: DENIES: Dysuria Musculoskeletal: DENIES: Joint pain, Muscle aches Integumentary: DENIES: Rash Neurologic: COMPLAINS OF: Paresthesias (some tingling in extremities with walking), DENIES: Headache Psychiatric: DENIES: Anxiety, Mood changes, Depression (Jayro Jones MD R1) Past Family Social History Past Medical History 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 HTN, hypercholesterolemia controlled on medication Hiatal hernia Past Surgical History Patient reports that his testicles were surgically lowered at 8 to 9 years of age. Patient has had a sinus surgery for sinus problems. Patient reports having hammertoe surgery. Patient reports that he had a plantar wart removed from his left heel. Reported Medications Reported Meds & Active Scripts Active Reported Metoprolol Tartrate 25 Mg Tab 25 Mg PO HS Aspirin EC (Aspirin) 81 Mg Tabdr 81 Mg PO HS Flax Seed Oil (Flaxseed (Linseed)) 1,000 Mg Cap 1,000 Mg PO BID Triamterene-Hydrochlorothiazide 37.5-25 Mg Cap 1 Cap PO DAILY Simvastatin 40 Mg Tab 40 Mg PO HS (Jayro Jones MD R1) Allergies: Coded Allergies: No Known Allergies (Unverified , 08/15/16) Active Ordered Medications Current Medications Medications (Trade) Dose Ordered Sig/Darling Route Start Time Stop Time Status Last Admin (NS Flush) 2 ml BID IV FLUSH 08/15/16 21:00 08/15/16 21:38 (NS Flush) 2 ml UNSCH PRN IVF 08/15/16 20:30 (Nitrostat Sl) 0.4 mg Q5M PRN SL 08/15/16 20:30 (Tylenol) 500 mg Q4H PRN PO 08/15/16 20:30 (Dumont 7.5-325 Mg) 1 tab Q4H PRN PO 08/15/16 20:30 (Morphine Inj) 2 mg Q5M PRN IV 08/15/16 20:30 (Restoril) 15 mg HS PRN PO 08/15/16 21:00 (Lovenox Inj) 40 mg Q24H SQ 08/15/16 21:00 (Tylenol) 650 mg Q4H PRN PO 08/15/16 20:30 (Zofran Inj) 4 mg Q6H PRN IVP 08/15/16 20:30 (Melyssa-Colace) 1 tab BID PRN PO 08/15/16 20:30 (Tums Chew) 1,000 mg TID PRN CHEW 08/15/16 20:30 (Ecotrin Ec) 81 mg HS PO 08/15/16 21:00 08/15/16 21:38 (Lopressor) 25 mg HS PO 08/15/16 21:00 08/15/16 21:39 (Dyazide 37.5-25 Mg) 1 cap DAILY PO 08/16/16 09:00 (Pravachol) 80 mg HS PO 08/15/16 21:15 08/15/16 21:39 Family History Both parents had bypass sugeries. His father had an OR at 66 years old. His mother also had an OR in her late 60s. His father in his late 80s of CHF. His mom in her 90s. Social History Patient denies smoking ever. Patient reports 1-2 drinks before dinner. Patient denies any other drug use. (Jayro Jones MD R1) Physical Exam Vital Signs Vital Signs Date Time Temp Pulse Resp B/P Pulse Ox O2 Delivery O2 Flow Rate FiO2 08/15/16 18:22 92 Room Air 08/15/16 18:22 92 Room Air 08/15/16 17:32 98.0 78 20 151/88 95 Room Air Physical Exam GENERAL: This is a well-nourished, well-developed patient, in no apparent distress. SKIN: No rashes, ecchymoses or lesions. Cool and dry. HEAD: Atraumatic. Normocephalic. EYES: Pupils equal round and reactive. Extraocular motions intact. No scleral icterus. No injection or drainage. ENT: Nose without bleeding, purulent drainage. Throat without erythema, tonsillar hypertrophy or exudate. Uvula midline. Airway patent. NECK: Trachea midline. No JVD or lymphadenopathy. Supple, nontender, no meningeal signs. CARDIOVASCULAR: Regular rate and rhythm without murmurs, gallops, or rubs. RESPIRATORY: Clear to auscultation. Breath sounds equal bilaterally. No wheezes , rales, or rhonchi. GASTROINTESTINAL: Abdomen soft, non-tender, nondistended. No hepato-splenomegaly , or palpable masses. No guarding. MUSCULOSKELETAL: Extremities without clubbing, cyanosis, or edema. No joint tenderness, effusion, or edema noted. No calf tenderness. NEUROLOGICAL: Awake and alert. Cranial nerves II through XII grossly intact. Motor and sensory grossly within normal limits. Normal speech. Laboratory Laboratory Tests Test 08/15/16 18:00 White Blood Count 10.3 Red Blood Count 5.51 Hemoglobin 17.4 Hematocrit 50.9 Mean Corpuscular Volume 92.3 Mean Corpuscular Hemoglobin 31.5 Mean Corpuscular Hemoglobin 34.1 Concent Red Cell Distribution Width 14.1 Platelet Count 213 Mean Platelet Volume 8.6 Neutrophils (%) (Auto) 62.5 Lymphocytes (%) (Auto) 27.0 Monocytes (%) (Auto) 9.4 Eosinophils (%) (Auto) 0.5 Basophils (%) (Auto) 0.6 Neutrophils # (Auto) 6.5 Lymphocytes # (Auto) 2.8 Monocytes # (Auto) 1.0 Eosinophils # (Auto) 0.1 Basophils # (Auto) 0.1 CBC Comment DIFF FINAL Differential Comment Prothrombin Time 11.3 Prothromb Time International 1.0 Ratio Activated Partial 27.9 Thromboplast Time Sodium Level 139 Potassium Level 3.4 Chloride Level 102 Carbon Dioxide Level 27.4 Anion Gap 10 Blood Urea Nitrogen 21 Creatinine 1.45 Estimat Glomerular Filtration 49 Rate Random Glucose 92 Calcium Level 8.9 Magnesium Level 2.1 Total Creatine Kinase 126 Creatine Kinase MB 1.4 Troponin I LESS THAN 0.02 (Jayro Jones MD R1) Result Diagram: 08/15/16 1800 08/15/16 1800 Imaging Last Impressions Chest X-Ray 08/15/16 175 Signed Impressions: Service Date/Time: Wednesday, August 15, 2016 18:13 - CONCLUSION: 1. No active disease. Tortuous aorta. No change from August 09. Renny Fuentes MD Course In the emergency department, patient had aspirin, nitroglycerin ointment, IV placed, CK-MB, EKG, chest x-ray, troponin, aPTT, PT/INR, magnesium, CBC, BMP, and cardiothoracic surgery consult, admission order. (Jayro Jones MD R1) Assessment and Plan Assessment and Plan 66 yo man with a history of hypertension and hypercholesterolemia controlled on medication s/p cardiac cath showing 4 blockages and 5.2cm thoracic aortic aneurysm, scheduled for CABG and aneurysm repair on August [address] Whitney p/w chest pain, EKG significant for pathologic Q waves in inferior leads, negative troponin. Admit for ACS rule out and CT surgery consult. Code Status Full code Discussed Condition With Pt discussed with Dr. Byrne. (Jayro Jones MD R1) Attending Attestation THIS CASE WAS DISCUSSED WITH THE RESIDENT PHYSICIANS. I HAVE REVIEWED THE RECORD AND AGREE WITH THE ABOVE NOTE AND PLAN OF CARE WAS DISCUSSED. I HAVE AUTHORIZED THE ORDER FOR ADMISSION TO AN IN-PATIENT STATUS. (Elvin Tena MD) Problem List: (1) Chest pain Status: Acute Plan: 66 yo man with a history of hypertension and hypercholesterolemia controlled on medication s/p cardiac cath showing 4 blockages and 5.2cm thoracic aortic aneurysm, scheduled for CABG and aneurysm repair on August [address] Whitney p/w chest pain, EKG significant for pathologic Q waves in inferior leads, negative troponin. Admit for ACS rule out and CT surgery consult. CT surgery consult appreciated. Called Dr. Nicole who agreed to see the patient. 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 Unclear baseline, creatinine ranged from 1.24 to 1.50. Encourage by mouth hydration Monitor BMP daily (3) Hypokalemia Status: Acute Plan: Patient presents with potassium of 3.4. 40 mEq of KCl by mouth 1 Monitor BMP daily (4) Hypertension Status: Acute Plan: Patient's hypertension controlled on medication. Continue home medication as below: Triamterene-hydrochlorothiazide 37.5-25 mg 1 capsule by mouth daily (5) Hyperlipidemia Status: Acute Plan: Patient with a history of hyperlipidemia/hypercholesterolemia controlled on medication. Continue medication as below: Pravastatin 80 mg by mouth daily at bedtime (6) Nutrition, metabolism, and development symptoms Status: Acute Plan: Fluids: Consider IV fluids pending tomorrow's BMP Electrolytes: Hypokalemia treated as above. Continue to monitor BMP Nutrition: Heart healthy diet GI prophylaxis: Not currently indicated When necessary medications: * Tylenol 650 mg by mouth every 4 hours when necessary for temperature over 100.4F * Tylenol 500 mg by mouth every 4 hours when necessary for headache * Tums Calcium carbonate chew 1 g chew 3 times a day when necessary for dyspepsia * Melyssa-Colace one tab by mouth twice a day when necessary for constipation * Zofran 4 mg IV push every 6 hours when necessary for nausea or vomiting * Restoril 15 mg by mouth daily at bedtime when necessary for insomnia (7) No contraindication to deep vein thrombosis (DVT) prophylaxis Status: Acute Plan: Lovenox 40 mg subcutaneous daily (Jayro Jones MD R1) Physician Certification 2 Midnight Certification Type: Admission for Inpatient Services Order for Inpatient Services The services are ordered in accordance with Medicare regulations or non- Medicare payer requirements, as applicable. In the case of services not specified as inpatient-only, they are appropriately provided as inpatient services in accordance with the 2-midnight benchmark. Estimated LOS (days): 2 2 days is the estimated time the patient will need to remain in the hospital, assuming treatment plan goals are met and no additional complications. Post-Hospital Plan: Not yet determined (Jayro Jones MD R1) Jayro Jones MD R1 Aug 15, 2016 20:17 Elvin Tena MD Aug 16, 2016 12:02
[2016-08-15] MEDS ORDERED: ACETAMINOPHEN 500 MG CPLT PO PRN (20:30)
[2016-08-15] MEDS ORDERED: NITROGLYCERIN 0.4 MG SL 25 TABS/BTL SL PRN (20:30)
[2016-08-15] MEDS ORDERED: MORPHINE SULFATE 4 MG/ML INJ IV PRN (20:30)
[2016-08-15] MEDS ORDERED: DOCUSATE SODIUM 50 MG/SENNA 8.6 MG TAB PO PRN (20:30)
[2016-08-15] MEDS ORDERED: CALCIUM CARBONATE 500 MG CHEWABLE TAB CHEW PRN (20:30)
[2016-08-15] MEDS ORDERED: ONDANSETRON HCL 4 MG/2 ML VIAL IVP PRN (20:30)
[2016-08-15] MEDS ORDERED: ACETAMINOPHEN 325 MG TAB PO PRN (20:30)
[2016-08-15] MEDS ORDERED: POTASSIUM CHLORIDE 10 MEQ CAP PO ONE (21:00)
[2016-08-15] MEDS: SODIUM CHLORIDE 0.9% FLUSH 10 ML FLUSH IV FLUSH SCH (21:38)
[2016-08-15] MEDS: ASPIRIN EC 81 MG TABEC PO SCH (21:38)
[2016-08-15] MEDS: PRAVASTATIN SOD 80 MG TAB PO SCH (21:39)
[2016-08-15] MEDS: METOPROLOL TARTRATE 25 MG TAB PO SCH (21:39)
[2016-08-15] MEDS ORDERED: MORPHINE SULFATE 4 MG/ML INJ IV PUSH PRN (22:30)
[2016-08-15 23:00] VITALS: PULSE 59
[2016-08-15] MEDS: ENOXAPARIN SODIUM 40 MG/0.4 ML SYRINGE SQ SCH (23:26)
[2016-08-15] MEDS: TEMAZEPAM 15 MG CAP PO PRN (23:26)
[2016-08-15 23:44] VITALS: BP 118/80; PULSE 68; RESP 12; TEMP 98.3; O2SAT 92
[2016-08-16] VITALS (26 sets, daily range): BP systolic 105–137; BP diastolic 62–84; PULSE 48–78; RESP 12–18; TEMP 97.8–98.6; O2SAT 93–97
[2016-08-16 07:51] LABS: AUTOMATED NEUTROPHIL # 5.2 TH/MM3 (1.8-7.7); BASOPHIL # 0.1 TH/MM3 (0-0.2); BASOPHIL % 0.7 % (0.0-2.0); EOSINOPHIL # 0.1 TH/MM3 (0-0.4); EOSINOPHIL % 1.1 % (0.0-4.0); HEMATOCRIT 46.9 % (39.0-51.0); HEMO FLAGS DIFF FINAL; LYMPH % 28.6 % (9.0-44.0); LYMPHOCYTE # 2.5 TH/MM3 (1.0-4.8); MEAN CELL VOLUME 91.9 FL (80.0-100.0); MEAN CORPUSCULAR HEMOGLOBIN 31.2 PG (27.0-34.0); MONO % 9.9 % (0.0-8.0); NEUT % 59.7 % (16.0-70.0); PLATELET COUNT 188 TH/MM3 (150-450); RED BLOOD COUNT 5.11 MIL/MM3 (4.50-5.90); RED CELL DISTRIBUTION WIDTH 13.7 % (11.6-17.2); WHITE BLOOD COUNT 8.7 TH/MM3 (4.0-11.0)
[2016-08-16 08:22] LABS: BICARBONATE 28.3 MEQ/L (21.0-32.0); POTASSIUM 3.3 MEQ/L (3.5-5.1)
[2016-08-16] MEDS: SODIUM CHLORIDE 0.9% FLUSH 10 ML FLUSH IV FLUSH SCH ×2 (09:00→20:38)
[2016-08-16] MEDS ORDERED: POTASSIUM CHLORIDE 10 MEQ CONTROLLED RELEASE TAB PO ONE (09:00)
[2016-08-16] MEDS: TRIAMTERENE/HCTZ 37.5 MG/25 MG CAP PO SCH (09:30)
--- NOTE | 2016-08-16 12:01 | HHI.FPPN ---
Subjective Remarks Patient is feeling relatively well this morning and denies any active chest pain or shortness of breath. Overall, right now he states that he is feeling very well except for a mild headache after getting nitroglycerin. He denies chest pain, denies palpitations, denies diaphoresis, denies shortness of breath , denies lower extremity edema. In summary this is a 66 her old male presenting with chest pain. He has had a workup as an outpatient with Dr. Mcitnyre of cardiology where catheterization was performed showing multivessel disease with associated with a 5.2 cm thoracic aortic aneurysm. He was scheduled with Dr. Whitney as an outpatient on 08/27/16 for a CABG and thoracic aneurysm repair but developed chest pain on the day of arrival. He describes it as a tightness, pressure, burning sensation in the substernal area of his chest similar to his initial presentation. He denies any diaphoresis, denies dyspnea at rest, denies dyspnea on exertion. 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 HTN, hypercholesterolemia controlled on medication Hiatal hernia Past Surgical History Patient reports that his testicles were surgically lowered at 8 to 9 years of age. Patient has had a sinus surgery for sinus problems. Patient reports having hammertoe surgery. Patient reports that he had a plantar wart removed from his left heel. Active Reported Metoprolol Tartrate 25 Mg Tab 25 Mg PO HS Aspirin EC (Aspirin) 81 Mg Tabdr 81 Mg PO HS Flax Seed Oil (Flaxseed (Linseed)) 1,000 Mg Cap 1,000 Mg PO BID Triamterene-Hydrochlorothiazide 37.5-25 Mg Cap 1 Cap PO DAILY Simvastatin 40 Mg Tab 40 Mg PO HS Family History Both parents had bypass sugeries. His father had an [place] at 66 years old. His mother also had an [place] in her late 60s. His father in his late 80s of CHF. His mom in her 90s. Social History Patient denies smoking ever. Patient reports 1-2 drinks before dinner. Patient denies any other drug use. Objective Vitals Vital Signs Date Time Temp Pulse Resp B/P Pulse Ox O2 Delivery O2 Flow Rate FiO2 08/16/16 08:00 98.2 51 16 105/63 94 08/16/16 07:00 68 08/16/16 06:00 48 08/16/16 05:00 48 08/16/16 04:28 98.4 54 12 109/70 96 08/16/16 04:00 48 08/16/16 03:00 53 08/16/16 02:00 50 08/16/16 01:00 50 08/16/16 00:00 48 08/15/16 23:44 98.3 68 12 118/80 92 08/15/16 23:00 59 08/15/16 20:00 82 16 115/76 96 Room Air 08/15/16 18:22 92 Room Air 08/15/16 18:22 92 Room Air 08/15/16 17:32 98.0 78 20 151/88 95 Room Air I/O 08/15/16 08/15/16 08/15/16 08/16/16 08/16/16 08/16/16 07:00 15:00 23:00 07:00 15:00 23:00 Intake Total 240 ml Output Total 100 ml Balance 140 ml Intake Oral 240 ml Output Urine Total 100 ml # Voids 1 Result Diagram: 08/16/1671908/16/16719 Objective Remarks GENERAL: This is a well-nourished, well-developed patient, in no apparent distress. SKIN: No rashes, ecchymoses or lesions. Cool and dry. HEAD: Atraumatic. Normocephalic. NECK: Trachea midline. No JVD or lymphadenopathy. Supple, nontender, no meningeal signs. CARDIOVASCULAR: Regular rate and rhythm without murmurs, gallops, or rubs. RESPIRATORY: Clear to auscultation. Breath sounds equal bilaterally. No wheezes , rales, or rhonchi. GASTROINTESTINAL: Abdomen soft, non-tender, nondistended. MUSCULOSKELETAL: Extremities without clubbing, cyanosis, or edema. NEUROLOGICAL: Awake and alert. A/P Assessment and Plan 66 yo man with a history of hypertension and hypercholesterolemia controlled on medication s/p cardiac cath showing 4 blockages and 5.2cm thoracic aortic aneurysm, scheduled for CABG and aneurysm repair on August [address] Whitney p/w chest pain, EKG significant for pathologic Q waves in inferior leads, negative troponin. Admit for ACS rule out and CT surgery consult. Problem List: (1) Chest pain Status: Acute Plan: Chest pain on arrival has resolved In the emergency department was given: Aspirin 325 mg 1 Nitroglycerin 0.5 inch ointment 1 Morphine 2 mg was ordered but was not given Metoprolol tartrate 25 mg by mouth twice daily Dr. Whitney of cardiothoracic surgery was consulted Continued medical management after admission as below: Metoprolol 25 mg daily at bedtime with goal blood pressure less than 120 systolic Dyazide 37.5/25 by mouth daily Aspirin 81 mg daily Morphine 2 mg IV as needed every 3 hours Supplemental oxygen as needed Nitroglycerin as needed for chest pain/angina Monitor vitals on telemetry Troponins less than 0.2 on arrival, subsequent troponins 0.22 Allow for heart healthy diet (2) HELEN (acute kidney injury) Status: Acute Plan: Patient presents with creatinine of 1.45 with improvement of creatinine by oral hydration to 1.32 Unclear baseline, creatinine ranged from 1.24 to 1.50. Encourage by mouth hydration Monitor BMP daily (3) Hypokalemia Status: Acute Plan: Patient presents with potassium of 3.4. 40 mEq of KCl by mouth 1 with repeat potassium of 3.3 - Repeat potassium chloride 40 mg by mouth 1 - Monitor BMP daily (4) Hypertension Status: Acute Plan: Patient's hypertension controlled on medication. Continue home medication as below: Triamterene-hydrochlorothiazide 37.5-25 mg 1 capsule by mouth daily - Metoprolol 25 mg by mouth daily Blood pressure goal of less than 120 systolic (5) Hyperlipidemia Status: Acute Plan: Patient with a history of hyperlipidemia/hypercholesterolemia controlled on medication. Continue medication as below: Pravastatin 80 mg by mouth daily at bedtime (6) Nutrition, metabolism, and development symptoms Status: Acute Plan: Fluids: Allow oral hydration unless pt becomes nothing by mouth Electrolytes: Hypokalemia treated as above. Continue to monitor BMP Nutrition: Heart healthy diet GI prophylaxis: Not currently indicated When necessary medications: * Tylenol 650 mg by mouth every 4 hours when necessary for temperature over 100.4F * Tylenol 500 mg by mouth every 4 hours when necessary for headache * Tums Calcium carbonate chew 1 g chew 3 times a day when necessary for dyspepsia * Melyssa-Colace one tab by mouth twice a day when necessary for constipation * Zofran 4 mg IV push every 6 hours when necessary for nausea or vomiting * Restoril 15 mg by mouth daily at bedtime when necessary for insomnia (7) No contraindication to deep vein thrombosis (DVT) prophylaxis Status: Acute Plan: Lovenox 40 mg subcutaneous daily Mallika,Elvin MD Aug 16, 2016 12:01
--- NOTE | 2016-08-16 12:05 | PD.CAR.PN ---
CVT Progress Note Subjective/Hospital Course: Patient admitted through ED for left chest pain with known multivessel CAD and ascending TAA scheduled for sugery 08/27/16. Currently, he is pain-free. Objective: Vital Signs Date Time Temp Pulse Resp B/P Pulse Ox O2 Delivery O2 Flow Rate FiO2 08/16/16 08:00 98.2 51 16 105/63 94 08/16/16 07:00 68 08/16/16 06:00 48 08/16/16 05:00 48 08/16/16 04:28 98.4 54 12 109/70 96 08/16/16 04:00 48 08/16/16 03:00 53 08/16/16 02:00 50 08/16/16 01:00 50 08/16/16 00:00 48 08/15/16 23:44 98.3 68 12 118/80 92 08/15/16 23:00 59 08/15/16 20:00 82 16 115/76 96 Room Air 08/15/16 18:22 92 Room Air 08/15/16 18:22 92 Room Air 08/15/16 17:32 98.0 78 20 151/88 95 Room Air Labs: Laboratory Tests Test 08/16/16 07:20 White Blood Count 8.7 TH/MM3 (4.0-11.0) Red Blood Count 5.11 MIL/MM3 (4.50-5.90) Hemoglobin 15.9 GM/DL (13.0-17.0) Hematocrit 46.9 % (39.0-51.0) Mean Corpuscular Volume 91.9 FL (80.0-100.0) Mean Corpuscular Hemoglobin 31.2 PG (27.0-34.0) Mean Corpuscular Hemoglobin 34.0 % Concent (32.0-36.0) Red Cell Distribution Width 13.7 % (11.6-17.2) Platelet Count 188 TH/MM3 (150-450) Mean Platelet Volume 8.2 FL (7.0-11.0) Neutrophils (%) (Auto) 59.7 % (16.0-70.0) Lymphocytes (%) (Auto) 28.6 % (9.0-44.0) Monocytes (%) (Auto) 9.9 % (0.0-8.0) Eosinophils (%) (Auto) 1.1 % (0.0-4.0) Basophils (%) (Auto) 0.7 % (0.0-2.0) Neutrophils # (Auto) 5.2 TH/MM3 (1.8-7.7) Lymphocytes # (Auto) 2.5 TH/MM3 (1.0-4.8) Monocytes # (Auto) 0.9 TH/MM3 (0-0.9) Eosinophils # (Auto) 0.1 TH/MM3 (0-0.4) Basophils # (Auto) 0.1 TH/MM3 (0-0.2) CBC Comment DIFF FINAL Differential Comment Sodium Level 140 MEQ/L (136-145) Potassium Level 3.3 MEQ/L (3.5-5.1) Chloride Level 102 MEQ/L (98-107) Carbon Dioxide Level 28.3 MEQ/L (21.0-32.0) Anion Gap 10 MEQ/L (5-15) Blood Urea Nitrogen 18 MG/DL (7-18) Creatinine 1.32 MG/DL (0.60-1.30) Estimat Glomerular Filtration 54 ML/MIN (>89) Rate Random Glucose 103 MG/DL (74-106) Calcium Level 8.6 MG/DL (8.5-10.1) Total Creatine Kinase 77 U/L (39-308) Troponin I 0.02 NG/ML (0.02-0.05) Result Diagram: 08/16/16 0720 08/16/16 0720 Imaging: Last Impressions Chest X-Ray 08/15/16 1755 Signed Impressions: Service Date/Time: Monday, August 15, 2016 18:13 - CONCLUSION: 1. No active disease. Tortuous aorta. No change from August 09. Renny Fuentes MD Cardiovascular: RRR Telemetry: NSR Pulmonary: CTA GI/: NABS, NT Plan: 66 y/o male scheduled for CABG/repair of ascending TAA. possible root 08/27/16 presents with left chest pain. I will discuss with Dr. Whitney for potentially moving surgery date forward to this week. Ariella Nicole MD Aug 16, 2016 12:05
[2016-08-16] MEDS ORDERED: ENALAPRILAT 1.25 MG/ML VIAL IV PUSH PRN (13:30)
--- NOTE | 2016-08-16 15:34 | EKG ---
Date Performed: 08/15/2016 Time Performed: 17:40:27 PTAGE: 66 years EKG: Sinus rhythm Old inferior infarct ABNORMAL ECG PREVIOUS TRACING : 08/14/2016 10.52 DOCTOR: Jeffrey Castro Interpretating Date/Time 08/16/2016 15:33:37
--- NOTE | 2016-08-16 15:36 | EKG ---
Date Performed: 08/16/2016 Time Performed: 05:23:16 PTAGE: 66 years EKG: Sinus bradycardia Old inferior infarct QT is slightly prolonged compared to the prior luna ng Borderline ECG PREVIOUS TRACING : 08/15/2016 17.40 DOCTOR: Jeffrey Castro Interpretating Date/Time 08/16/2016 15:34:23
[2016-08-16] MEDS: PRAVASTATIN SOD 80 MG TAB PO SCH (20:36)
[2016-08-16] MEDS: METOPROLOL TARTRATE 25 MG TAB PO SCH (20:36)
[2016-08-16] MEDS: ENOXAPARIN SODIUM 40 MG/0.4 ML SYRINGE SQ SCH (20:36)
[2016-08-16] MEDS: TEMAZEPAM 15 MG CAP PO PRN (20:37)
[2016-08-16] MEDS: ASPIRIN EC 81 MG TABEC PO SCH (20:37)
[2016-08-17] VITALS (26 sets, daily range): BP systolic 105–151; BP diastolic 75–86; PULSE 54–98; RESP 16–18; TEMP 98–99.2; O2SAT 92–95
--- NOTE | 2016-08-17 08:52 | HHI.FPPN ---
Subjective Remarks Patient was seen and examined this morning. He reports no new complaints, endorsing only a small "tinge" of left-sided constant chest discomfort. This is better than before he reports. He notes that he is waiting on either Dr. Whitney or Dr. Mcintyre to come see him today; he notes that he believes the CT surgeon said he is not leaving hospital until procedure is done at this point given his chest pain. No headaches, dizziness, shortness of breath, N/V. Normal bladder and bowel function. Walking around without discomfort. (Olga Mcintyre MD R1) Objective Vitals Vital Signs Date Time Temp Pulse Resp B/P Pulse Ox O2 Delivery O2 Flow Rate FiO2 08/17/16 05:00 60 08/17/16 04:00 56 08/17/16 03:00 57 08/17/16 02:00 56 08/17/16 01:02 98.6 54 16 123/78 95 08/17/16 01:00 58 08/17/16 00:00 54 08/16/16 23:00 52 08/16/16 22:00 56 08/16/16 21:00 62 08/16/16 20:25 98.6 65 14 137/84 94 08/16/16 20:00 66 08/16/16 19:00 68 08/16/16 18:00 64 08/16/16 17:00 60 08/16/16 16:00 98.3 63 18 130/82 94 08/16/16 16:00 60 08/16/16 15:00 68 08/16/16 14:00 74 08/16/16 14:00 97 21 08/16/16 13:00 78 08/16/16 12:00 72 08/16/16 12:00 97.8 70 18 126/62 93 08/16/16 11:00 68 08/16/16 10:00 60 08/16/16 09:00 56 I/O 08/16/16 08/16/16 08/16/16 08/17/16 08/17/16 08/17/16 07:00 15:00 23:00 07:00 15:00 23:00 Intake Total 240 ml 600 ml 240 ml Output Total 100 ml 1800 ml Balance 140 ml 600 ml -1560 ml Intake Oral 240 ml 600 ml 240 ml Output Urine Total 100 ml 1800 ml # Voids 1 3 # Bowel Movements 1 (Olga Mcintyre MD R1) Result Diagram: 08/16/16 0720 08/16/16 0720 Imaging Last 72 hours Impressions Chest X-Ray 08/15/16 1755 Signed Impressions: Service Date/Time: Monday, August 15, 2016 18:13 - CONCLUSION: 1. No active disease. Tortuous aorta. No change from August 09. Renny Fuentes MD Objective Remarks GENERAL: This is a well-nourished, well-developed patient, in no apparent distress. Sitting up in bed, at bedside. SKIN: No rashes, ecchymoses or lesions. Cool and dry. HEAD: Atraumatic. Normocephalic. NECK: Trachea midline. No JVD or lymphadenopathy. Supple, nontender, no meningeal signs. CARDIOVASCULAR: Regular rate and rhythm without murmurs, gallops, or rubs. RESPIRATORY: Clear to auscultation. Breath sounds equal bilaterally. No wheezes , rales, or rhonchi. GASTROINTESTINAL: Abdomen soft, non-tender, nondistended. MUSCULOSKELETAL: Extremities without clubbing, cyanosis, or edema. NEUROLOGICAL: Awake and alert. Medications and IVs Inpatient Medications Acetaminophen (Tylenol) 650 mg Q4H PRN PO TEMP > 100.4; Start 08/15/16 at 20:30 Acetaminophen/ Hydrocodone Bitart ([place] 7.5-325 Mg) 1 tab Q4H PRN PO PAIN SCALE 1 TO 5; Start 08/15/16 at 20:30 Aspirin (Aspirin Chew) 324 mg ONCE ONCE PO Last administered on 08/15/16 18: 21; Start 08/15/16 at 18:00; Stop 08/15/16 at 18:01; Status DC Aspirin (Ecotrin Ec) 81 mg HS PO Last administered on 08/16/16 20:37; Start at 21:00 Calcium Carbonate (Tums Chew) 1,000 mg TID PRN CHEW DYSPEPSIA; Start 08/15/16 at 20:30 Enalaprilat (Vasotec Inj) 1.25 mg Q6H PRN IV PUSH SBP>140, DBP>90; Start 08/16 at 13:30 Enoxaparin Sodium (Lovenox Inj) 40 mg Q24H SQ Last administered on 08/16/16 20 :36; Start 08/15/16 at 21:00 Metoprolol Tartrate (Lopressor) 25 mg HS PO Last administered on 08/16/16 20: 36; Start 08/15/16 at 21:00 Morphine Sulfate (Morphine Inj) 2 mg Q3H PRN IV PUSH pain 6-10; Start 08/15/16 at 22:30 Nitroglycerin (Nitroglycerin 2% Oint) 0.5 inch ONCE ONCE TOP Last administered on 08/15/16 18:22; Start 08/15/16 at 18:00; Stop 08/15/16 at 18:01 ; Status DC Nitroglycerin (Nitrostat Sl) 0.4 mg Q5M PRN SL ANGINA; Start 08/15/16 at 20:30 Ondansetron HCl (Zofran Inj) 4 mg Q6H PRN IVP NAUSEA OR VOMITING; Start at 20:30 Potassium Chloride (KCl) 40 meq ONCE ONCE PO Last administered on 08/16/16 09 :30; Start 08/16/16 at 09:00; Stop 08/16/16 at 09:01; Status DC Pravastatin Sodium (Pravachol) 80 mg HS PO Last administered on 08/16/16 20:36 ; Start 08/15/16 at 21:15 Senna/Docusate Sodium (Melyssa-Colace) 1 tab BID PRN PO CONSTIPATION; Start at 20:30 Sodium Chloride (NS Flush) 2 ml UNSCH PRN IVF FLUSH AFTER USING IV ACCESS; Start 08/15/16 at 20:30 Temazepam (Restoril) 15 mg HS PRN PO INSOMNIA Last administered on 08/16/16 20 :37; Start 08/15/16 at 21:00 Triamterene/HCTZ (Dyazide 37.5-25 Mg) 1 cap DAILY PO Last administered on 09:47; Start 08/16/16 at 09:00 (Olga Mcintyre MD R1) A/P Assessment and Plan 66 yo man with a history of hypertension and hypercholesterolemia controlled on medication s/p cardiac cath showing 4 blockages and 5.2cm thoracic aortic aneurysm, scheduled for CABG and aneurysm repair on August 27, [address] Whitney p/w chest pain, EKG significant for pathologic Q waves in inferior leads , negative troponins x 3. Admit for ACS rule out and CT surgery evaluation. Discharge Planning Pending CT surgery and Cardiology team recommendations (Olga Mcintyre MD R1) Attending Attestation Pt. examined and case discussed with resident physicians I have read the above note and agree with the assessment/plan as discussed with me I was involved in all medical decision making for this patient Elvin Tena MD (Elvin Tena MD) Problem List: (1) Chest pain Status: Acute Plan: Chest pain on arrival has resolved, now notes constant but less severe discomfort of the left chest. Dr. Whitney of cardiothoracic surgery was consulted - will consult patient's physicians for further planning Continued medical management after admission as below: Metoprolol 25 mg daily at bedtime with goal blood pressure < 120 systolic Dyazide 37.5/25 by mouth daily Aspirin 81 mg daily Morphine 2 mg IV as needed every 3 hours Supplemental oxygen as needed Nitroglycerin as needed for chest pain/angina Monitor vitals on telemetry Vasotec PRN BP <140/90, goal 120/80 given aneurysm Troponins less than 0.2 on arrival, subsequent troponins 0.23 Allow for heart healthy diet Metoprolol tartrate 25 mg by mouth twice daily ED course: Aspirin 325 mg 1 Nitroglycerin 0.5 inch ointment 1 Morphine 2 mg was ordered but was not given (2) HELEN (acute kidney injury) Status: Acute Plan: Patient presents with creatinine of 1.45 with improvement of creatinine by oral hydration to 1.32 on 08/16 Unclear baseline, creatinine ranged from 1.24 to 1.50. --BMP this morning to trend Encourage by mouth hydration --Will given IVF if not stable or improved Monitor BMP daily (3) Hypokalemia Status: Acute Plan: Patient presents with potassium of 3.4. Patient states he is not eating as much lately. 40 mEq of KCl by mouth 1 with repeat potassium of 3.3 - Repeat potassium chloride 40 mg by mouth 1 - Monitor BMP daily - Encourage K rich diet - will start 20meq daily if still low (4) Hypertension Status: Acute Plan: Patient's hypertension controlled on medication. Continue home medication as below: Triamterene-hydrochlorothiazide 37.5-25 mg 1 capsule by mouth daily - Metoprolol 25 mg by mouth daily -Vasotec PRN >140/90 Blood pressure goal of less than 120 systolic (5) Hyperlipidemia Status: Acute Plan: Patient with a history of hyperlipidemia/hypercholesterolemia controlled on medication. Continue medication as below: Pravastatin 80 mg by mouth daily at bedtime (6) Nutrition, metabolism, and development symptoms Status: Acute Plan: Fluids: Allow oral hydration unless pt becomes nothing by mouth Electrolytes: Hypokalemia treated as above. Continue to monitor BMP Nutrition: Heart healthy diet GI prophylaxis: Not currently indicated When necessary medications: * Tylenol 650 mg by mouth every 4 hours when necessary for temperature over 100.4F * Tylenol 500 mg by mouth every 4 hours when necessary for headache * Tums Calcium carbonate chew 1 g chew 3 times a day when necessary for dyspepsia * Melyssa-Colace one tab by mouth twice a day when necessary for constipation * Zofran 4 mg IV push every 6 hours when necessary for nausea or vomiting * Restoril 15 mg by mouth daily at bedtime when necessary for insomnia (7) No contraindication to deep vein thrombosis (DVT) prophylaxis Status: Acute Plan: Lovenox 40 mg subcutaneous daily (Olga Mcintyre MD R1) Olga Mcintyre MD R1 Aug 17, 2016 08:52 Elvin Tena MD Aug 17, 2016 18:47
[2016-08-17] MEDS: SODIUM CHLORIDE 0.9% FLUSH 10 ML FLUSH IV FLUSH SCH (09:00)
[2016-08-17] MEDS ORDERED: POTASSIUM CHLORIDE 20 MEQ CONTROLLED RELEASE TAB PO SCH (09:00)
[2016-08-17] MEDS: TRIAMTERENE/HCTZ 37.5 MG/25 MG CAP PO SCH (09:47)
[2016-08-17 11:22] LABS: BICARBONATE 26.2 MEQ/L (21.0-32.0); POTASSIUM 3.2 MEQ/L (3.5-5.1)
[2016-08-17] MEDS ORDERED: POTASSIUM CHLORIDE 10 MEQ CONTROLLED RELEASE TAB PO ONE (12:15)
[2016-08-17] MEDS ORDERED: HEPARIN-D5W INJ 250 ML IV SCH (17:45)
[2016-08-17] MEDS ORDERED: HEPARIN SODIUM - IV 10,000 UNITS/10 ML VIAL IV ONE (17:45)
[2016-08-17] MEDS ORDERED: SODIUM CHLORIDE 0.9% FLUSH 10 ML FLUSH IVF PRN (18:00)
[2016-08-17] MEDS ORDERED: INSULIN REGULAR (IV INFUSION) 100 UNITS in SODIUM CHLORIDE 0.9% INJ 100 ML IV SCH (18:00)
[2016-08-17] MEDS ORDERED: ceFAZolin 2 GM PREMIX 50 ML IV SCH (18:00)
[2016-08-17] MEDS ORDERED: METOPROLOL TARTRATE 25 MG TAB PO SCH (18:00)
[2016-08-17] MEDS: NITROGLYCERIN 2% OINT 1 GM PACKET TOPICAL SCH (18:00)
[2016-08-17] MEDS ORDERED: PAPAVERINE INJ 60 MG, NITROGLYCERIN INJ 100 MCG, DILTIAZEM INJ 100 MG in SODIUM CHLORID... IRRIGATION SCH (18:00)
[2016-08-17] MEDS ORDERED: CEFAZOLIN INJ 500 MG in SODIUM CHLORIDE 0.9% IRR BTL 500 ML IRRIGATION SCH (18:00)
[2016-08-17] MEDS ORDERED: CHLORHEXIDINE GLUCONATE 4% SOLN 120 ML BTL TOPICAL SCH (18:00)
--- NOTE | 2016-08-17 18:03 | PD.CAR.PN ---
CVT Progress Note Subjective/Hospital Course: Patient admitted through ED for left chest pain with known multivessel CAD and ascending TAA 5.2 cm scheduled for sugery 08/27/16. Currently, he is pain-free. Heart cath completed 08/14/16 75% distal LAD, Circ 90% OM 90% RCA 100% / EF 66% PMH: HTN, HLP plan for Coronary artery bypass grafting , ascending aortic aneurysm repair and aortic valve replacement / scheduled for WED 08/1908/17/16 pt had some chest pain this am -07/03 started on Heparin gtt / nitropaste , on ASA Objective: GENERAL: SKIN: Warm and dry. HEAD: Normocephalic. EYES: No scleral icterus. No injection or drainage. NECK: Supple, trachea midline. No JVD or lymphadenopathy. CARDIOVASCULAR: Regular rate and rhythm without murmurs, gallops, or rubs. RESPIRATORY: Breath sounds equal bilaterally. No accessory muscle use. GASTROINTESTINAL: Abdomen soft, non-tender, nondistended. MUSCULOSKELETAL: No cyanosis, or edema. BACK: Nontender without obvious deformity. No CVA tenderness. Vital Signs Date Time Temp Pulse Resp B/P Pulse Ox O2 Delivery O2 Flow Rate FiO2 08/17/16 16:07 75 08/17/16 15:32 98.8 77 151/86 95 08/17/16 15:00 75 08/17/16 14:45 74 08/17/16 13:27 85 08/17/16 12:01 85 08/17/16 11:00 99.2 89 105/79 95 08/17/16 11:00 81 08/17/16 10:00 84 08/17/16 09:35 95 21 08/17/16 09:00 72 08/17/16 08:00 64 08/17/16 07:00 99.0 64 18 134/86 92 08/17/16 07:00 60 08/17/16 05:00 60 08/17/16 04:00 56 08/17/16 03:00 57 08/17/16 02:00 56 08/17/16 01:02 98.6 54 16 123/78 95 08/17/16 01:00 58 08/17/16 00:00 54 08/16/16 23:00 52 08/16/16 22:00 56 08/16/16 21:00 62 08/16/16 20:25 98.6 65 14 137/84 94 08/16/16 20:00 66 08/16/16 19:00 68 08/16/16 18:00 64 Labs: Laboratory Tests Test 08/17/16 10:35 Sodium Level 138 MEQ/L (136-145) Potassium Level 3.2 MEQ/L (3.5-5.1) Chloride Level 101 MEQ/L (98-107) Carbon Dioxide Level 26.2 MEQ/L (21.0-32.0) Anion Gap 11 MEQ/L (5-15) Blood Urea Nitrogen 18 MG/DL (7-18) Creatinine 1.59 MG/DL (0.60-1.30) Estimat Glomerular Filtration 44 ML/MIN (>89) Rate Random Glucose 213 MG/DL (74-106) Calcium Level 8.8 MG/DL (8.5-10.1) Result Diagram: 08/16/16 0720 08/17/16 1035 Telemetry: NSR (1) Chest pain Plan: on nitro paste / heparin gtt (2) Hypertension Plan: add BB, on dyazide (3) Hyperlipidemia Plan: on statin (4) HELEN (acute kidney injury) Plan: recheck indices in Ines Hollingsworth Aug 17, 2016 18:03
[2016-08-17] MEDS ORDERED: PILL SPLITTER OTHER PRN (18:45)
[2016-08-17 19:01] LABS: HEMATOCRIT 52.5 % (39.0-51.0); MEAN CELL VOLUME 92.8 FL (80.0-100.0); MEAN CORPUSCULAR HEMOGLOBIN 30.8 PG (27.0-34.0); MEAN CORPUSCULAR HGB CONC 33.1 % (32.0-36.0); PLATELET COUNT 223 TH/MM3 (150-450); RED BLOOD COUNT 5.66 MIL/MM3 (4.50-5.90); RED CELL DISTRIBUTION WIDTH 14.2 % (11.6-17.2); REVIEW FLAG FINAL; WHITE BLOOD COUNT 11.6 TH/MM3 (4.0-11.0)
[2016-08-17 19:20] LABS: INTERNATIONAL NORMALIZED RATIO 1.2 RATIO; PROTHROMBIN TIME - PATIENT 12.9 SEC (9.8-11.6)
[2016-08-17 19:26] LABS: APTT (PATIENT) 124.1 SEC (24.3-30.1)
[2016-08-17] MEDS: PRAVASTATIN SOD 80 MG TAB PO SCH (20:48)
[2016-08-17] MEDS: ASPIRIN EC 81 MG TABEC PO SCH (20:48)
[2016-08-17] MEDS: METOPROLOL TARTRATE 25 MG TAB PO SCH (20:49)
[2016-08-17] MEDS: SODIUM CHLORIDE 0.9% FLUSH 10 ML FLUSH IVF SCH (20:50)
[2016-08-17 22:01] LABS: APTT (PATIENT) 38.4 SEC (24.3-30.1)
[2016-08-17] MEDS ORDERED: HEPARIN SODIUM - IV 10,000 UNITS/10 ML VIAL IV PRN ×2 (23:45)
[2016-08-18] VITALS (29 sets, daily range): BP systolic 100–124; BP diastolic 44–76; PULSE 52–77; RESP 16–20; TEMP 97.7–98.6; O2SAT 92–99
[2016-08-18] MEDS: NITROGLYCERIN 2% OINT 1 GM PACKET TOPICAL SCH ×5 (00:22→22:06)
[2016-08-18] MEDS: TEMAZEPAM 15 MG CAP PO PRN ×2 (00:26→22:06)
[2016-08-18 06:10] LABS: APTT (PATIENT) 39.2 SEC (24.3-30.1)
[2016-08-18 06:32] LABS: BICARBONATE 26.2 MEQ/L (21.0-32.0); POTASSIUM 3.1 MEQ/L (3.5-5.1)
--- NOTE | 2016-08-18 08:54 | HHI.FPPN ---
Subjective Remarks Patient feeling well. Some chest pain overnight, tightness left side, low in severity. BP has been well controlled <120 mm Hg, and he tolerated the additional Beta pari well. Per patient, surgery is set-up tentatively for tomorrow 08/19/2016. (Cristobal Byrne MD R2) Objective Vitals Vital Signs Date Time Temp Pulse Resp B/P Pulse Ox O2 Delivery O2 Flow Rate FiO2 08/18/16 08:00 62 08/18/16 08:00 97.7 62 16 107/64 92 08/18/16 07:30 56 08/18/16 06:00 52 08/18/16 05:00 58 08/18/16 04:00 98.2 58 16 104/64 93 08/18/16 04:00 60 08/18/16 03:00 64 08/18/16 02:00 58 08/18/16 01:00 56 08/18/16 00:00 60 08/18/16 00:00 98.2 64 16 100/63 93 08/17/16 23:00 58 08/17/16 22:00 68 08/17/16 21:00 80 08/17/16 20:00 98.0 83 18 117/75 93 08/17/16 20:00 89 08/17/16 19:00 94 08/17/16 18:20 98 08/17/16 17:48 89 08/17/16 16:07 75 08/17/16 15:32 98.8 77 151/86 95 08/17/16 15:00 75 08/17/16 14:45 74 08/17/16 13:27 85 08/17/16 12:01 85 08/17/16 11:00 99.2 89 105/79 95 08/17/16 11:00 81 08/17/16 10:00 84 08/17/16 09:35 95 21 08/17/16 09:00 72 I/O 08/17/16 08/17/16 08/17/16 08/18/16 08/18/16 08/18/16 07:00 15:00 23:00 07:00 15:00 23:00 Intake Total 240 ml 840 ml 240 ml Output Total 1800 ml 1900 ml 300 ml Balance -1560 ml -1060 ml -60 ml Intake Oral 240 ml 840 ml 240 ml Output Urine Total 1800 ml 1900 ml 300 ml # Bowel Movements 0 0 (Cristobal Byrne MD R2) Result Diagram: 08/17/16 1815 08/18/16 0440 Objective Remarks GENERAL: This is a well-nourished, well-developed patient, in no apparent distress. Sitting up in bed, at bedside. SKIN: No rashes, ecchymoses or lesions. Cool and dry. HEAD: Atraumatic. Normocephalic. NECK: Trachea midline. No JVD or lymphadenopathy. Supple, nontender, no meningeal signs. CARDIOVASCULAR: Regular rate and rhythm without murmurs, gallops, or rubs. RESPIRATORY: Clear to auscultation. Breath sounds equal bilaterally. No wheezes , rales, or rhonchi. GASTROINTESTINAL: Abdomen soft, non-tender, nondistended. MUSCULOSKELETAL: Extremities without clubbing, cyanosis, or edema. NEUROLOGICAL: Awake and alert. (Cristobal Byrne MD R2) A/P Assessment and Plan 66 yo man with a history of hypertension and hypercholesterolemia controlled on medication s/p cardiac cath showing 4 blockages and 5.2 cm thoracic aortic aneurysm, scheduled for CABG and aneurysm repair on August 27, [address] Whitney p/w chest pain, EKG significant for pathologic Q waves in inferior leads , negative troponins x 3. Admit for ACS rule out and CT surgery evaluation. Discharge Planning Pending CT surgery and Cardiology team recommendations (Cristobal Byrne MD R2) Attending Attestation Pt. examined and case discussed with resident physicians I have read the above note and agree with the assessment/plan as discussed with me I was involved in all medical decision making for this patient Elvin Tena MD (Elvin Tena MD) Problem List: (1) Thoracic aortic aneurysm Status: Acute Plan: Aneurysm as detailed above. CT surgery planning operative repair 2016. (2) Chest pain Status: Acute Plan: Chest pain on arrival has resolved, now notes constant but less severe discomfort of the left chest. Dr. Whitney of cardiothoracic surgery was consulted - will consult patient's physicians for further planning Continued medical management after admission as below: Metoprolol 12.5 mg BID with goal blood pressure < 120 systolic Dyazide 37.5/25 by mouth daily Aspirin 81 mg daily and Heparin gtt Morphine 2 mg IV as needed every 3 hours Supplemental oxygen as needed Nitroglycerin paste Monitor vitals on telemetry Vasotec PRN BP <140/90, goal 120/80 given aneurysm Troponins less than 0.2 on arrival, subsequent troponins 0.23 Allow for heart healthy diet ED course: Aspirin 325 mg 1 Nitroglycerin 0.5 inch ointment 1 Morphine 2 mg was ordered but was not given (3) HELEN (acute kidney injury) Status: Acute Plan: Patient presents with creatinine of 1.45 with improvement of creatinine by oral hydration to 1.32 on 08/16 Unclear baseline, creatinine ranged from 1.24 to 1.50. --BMP this morning to trend Encourage by mouth hydration --Will given IVF if not stable or improved Monitor BMP daily (4) Hypokalemia Status: Acute Plan: Potassium of 3.1. Patient states he is not eating as much lately. 40 mEq of KCl - Monitor BMP daily - Encourage K rich diet (5) Hypertension Status: Chronic Plan: Patient's hypertension controlled on medication. Continue home medication as below: Triamterene-hydrochlorothiazide 37.5-25 mg 1 capsule by mouth daily - Metoprolol 12.5 mg by mouth bid -Vasotec PRN >140/90 Blood pressure goal of less than 120 systolic (6) Hyperlipidemia Status: Chronic Plan: Patient with a history of hyperlipidemia/hypercholesterolemia controlled on medication. Continue medication as below: Pravastatin 80 mg by mouth daily at bedtime (7) Nutrition, metabolism, and development symptoms Status: Acute Plan: Fluids: Allow oral hydration unless pt becomes nothing by mouth Electrolytes: Hypokalemia treated as above. Continue to monitor BMP Nutrition: Heart healthy diet GI prophylaxis: Not currently indicated When necessary medications: * Tylenol 650 mg by mouth every 4 hours when necessary for temperature over 100.4F * Tylenol 500 mg by mouth every 4 hours when necessary for headache * Tums Calcium carbonate chew 1 g chew 3 times a day when necessary for dyspepsia * Melyssa-Colace one tab by mouth twice a day when necessary for constipation * Zofran 4 mg IV push every 6 hours when necessary for nausea or vomiting * Restoril 15 mg by mouth daily at bedtime when necessary for insomnia (8) No contraindication to deep vein thrombosis (DVT) prophylaxis Status: Acute Plan: Lovenox 40 mg subcutaneous daily wdw Dr. Tena (Cristobal Byrne MD R2) Problem List: (1) Coronary artery disease Status: Acute Plan: Well established CAD - present on admission Plan is for CABG with CT surgery on the morning of 08/19/16 Continue Statin and Beta pari as above (2) Thoracic aortic aneurysm Status: Acute (3) Hypokalemia Status: Acute (4) Chest pain Status: Acute (5) HELEN (acute kidney injury) Status: Acute (6) Hyperlipidemia Status: Chronic (7) Hypertension Status: Chronic (8) Nutrition, metabolism, and development symptoms Status: Acute (9) No contraindication to deep vein thrombosis (DVT) prophylaxis Status: Acute (Elvin Tena MD) Cristobal Byrne MD R2 Aug 18, 2016 08:54 Elvin Tena MD Aug 19, 2016 09:17
[2016-08-18] MEDS ORDERED: POTASSIUM CHLORIDE 20 MEQ CONTROLLED RELEASE TAB PO ONE ×2 (09:00)
[2016-08-18] MEDS: SODIUM CHLORIDE 0.9% FLUSH 10 ML FLUSH IVF SCH ×2 (09:00→20:17)
[2016-08-18] MEDS: TRIAMTERENE/HCTZ 37.5 MG/25 MG CAP PO SCH (09:05)
[2016-08-18] MEDS: POTASSIUM CHLORIDE 20 MEQ CONTROLLED RELEASE TAB PO SCH (09:05)
[2016-08-18] MEDS: METOPROLOL TARTRATE 25 MG TAB PO SCH ×2 (09:06→20:16)
[2016-08-18 12:38] LABS: APTT (PATIENT) 39.1 SEC (24.3-30.1)
--- NOTE | 2016-08-18 16:06 | PD.CAR.PN ---
CVT Progress Note Subjective/Hospital Course: Patient admitted through ED for left chest pain with known multivessel CAD and ascending TAA 5.2 cm scheduled for sugery 08/27/16. Currently, he is pain-free. Heart cath completed 08/14/16 75% distal LAD, Circ 90% OM 90% RCA 100% / EF 66% PMH: HTN, HLP plan for Coronary artery bypass grafting , ascending aortic aneurysm repair and aortic valve replacement / scheduled for WED 08/1908/17/16 pt had some chest pain this am 1-07/03 started on Heparin gtt / nitropaste , on ASA 08/18/16 had very minimal pain this am, scheduled for surgery in am no sts risk stratification 2/2 additional of ascending aortic aneurysm repair Objective: GENERAL: SKIN: Warm and dry. HEAD: Normocephalic. EYES: No scleral icterus. No injection or drainage. NECK: Supple, trachea midline. No JVD or lymphadenopathy. CARDIOVASCULAR: Regular rate and rhythm without murmurs, gallops, or rubs. RESPIRATORY: Breath sounds equal bilaterally. No accessory muscle use. GASTROINTESTINAL: Abdomen soft, non-tender, nondistended. MUSCULOSKELETAL: No cyanosis, or edema. BACK: Nontender without obvious deformity. No CVA tenderness. Vital Signs Date Time Temp Pulse Resp B/P Pulse Ox O2 Delivery O2 Flow Rate FiO2 08/18/16 14:09 71 08/18/16 13:52 64 08/18/16 12:01 67 08/18/16 11:00 98.0 77 18 106/44 96 08/18/16 11:00 73 08/18/16 10:24 66 08/18/16 10:05 75 08/18/16 09:48 93 21 08/18/16 09:30 64 08/18/16 08:00 62 08/18/16 08:00 97.7 62 16 107/64 92 08/18/16 07:30 56 08/18/16 07:00 55 08/18/16 06:00 52 08/18/16 05:00 58 08/18/16 04:00 98.2 58 16 104/64 93 08/18/16 04:00 60 08/18/16 03:00 64 08/18/16 02:00 58 08/18/16 01:00 56 08/18/16 00:00 60 08/18/16 00:00 98.2 64 16 100/63 93 08/17/16 23:00 58 08/17/16 22:00 68 08/17/16 21:00 80 08/17/16 20:00 98.0 83 18 117/75 93 08/17/16 20:00 89 08/17/16 19:00 94 08/17/16 18:20 98 08/17/16 17:48 89 08/17/16 16:07 75 Labs: Laboratory Tests Test 08/18/16 08/18/16 08/18/16 04:40 08:00 12:13 Activated Partial 39.2 SEC 39.1 SEC Thromboplast Time (24.3-30.1) (24.3-30.1) Sodium Level 138 MEQ/L (136-145) Potassium Level 3.1 MEQ/L (3.5-5.1) Chloride Level 101 MEQ/L (98-107) Carbon Dioxide Level 26.2 MEQ/L (21.0-32.0) Anion Gap 11 MEQ/L (5-15) Blood Urea Nitrogen 18 MG/DL (7-18) Creatinine 1.40 MG/DL (0.60-1.30) Estimat Glomerular Filtration 51 ML/MIN (>89) Rate Random Glucose 113 MG/DL (74-106) Calcium Level 8.7 MG/DL (8.5-10.1) Blood Type O NEGATIVE O NEGATIVE Antibody Screen NEGATIVE Crossmatch Leukocyte-Reduced Red Blood Cells Blood Bank Comment Result Diagram: 08/17/16 1815 08/18/16 0440 Telemetry: NSR (1) Chest pain Plan: on nitro paste / heparin gtt (2) Hypertension Plan: add BB, on dyazide (3) Hyperlipidemia Plan: on statin (4) HELEN (acute kidney injury) Plan: recheck indices in am / creatinine improved 1.40 K + replaced born with one kidney / avoid nephrotoxins Ines Parker Aug 18, 2016 16:06
[2016-08-18 19:04] LABS: APTT (PATIENT) 42.6 SEC (24.3-30.1)
[2016-08-18] MEDS: ASPIRIN EC 81 MG TABEC PO SCH (20:16)
[2016-08-18] MEDS: PRAVASTATIN SOD 80 MG TAB PO SCH (20:16)
[2016-08-19] VITALS (18 sets, daily range): BP systolic 109–124; BP diastolic 53–75; PULSE 52–93; RESP 12–18; TEMP 97.6–98.7; O2SAT 87–99
[2016-08-19] MEDS ORDERED: VANCOMYCIN HCL 1000 MG VIAL ONE ×2 (06:33→14:56)
[2016-08-19] MEDS ORDERED: HEPARIN SODIUM - SQ 10,000 UNITS/ML VIAL ONE (06:33)
[2016-08-19 06:34] LABS: BICARBONATE 25.3 MEQ/L (21.0-32.0); POTASSIUM 3.4 MEQ/L (3.5-5.1)
[2016-08-19] MEDS ORDERED: MANNITOL INJ 50 ML ONE (07:16)
[2016-08-19] MEDS ORDERED: CALCIUM CHLORIDE 10% SOLN 1 GRAM/10 ML SYR ONE (07:17)
[2016-08-19] MEDS ORDERED: LIDOCAINE HCL 2% 100 MG/5 ML SYRINGE ONE (07:17)
[2016-08-19] MEDS ORDERED: ALBUMIN HUMAN 25% 12.5 GM/50 ML BAGP IV ONE (07:18)
[2016-08-19] MEDS ORDERED: SODIUM BICARBONATE 8.4% INJ 50 ML ONE ×2 (07:18→18:00)
[2016-08-19] MEDS ORDERED: CUSTODIOL HTK IRR SOLN 1,000 ML ONE ×2 (07:19→13:39)
[2016-08-19] MEDS ORDERED: POTASSIUM CHLORIDE 20 MEQ/10 ML VIAL ONE (07:21)
[2016-08-19] MEDS: METOPROLOL TARTRATE 25 MG TAB PO SCH ×2 (09:00→20:50)
[2016-08-19] MEDS: TRIAMTERENE/HCTZ 37.5 MG/25 MG CAP PO SCH (09:00)
[2016-08-19] MEDS: SODIUM CHLORIDE 0.9% FLUSH 10 ML FLUSH IVF SCH ×2 (09:00→20:50)
[2016-08-19] MEDS: POTASSIUM CHLORIDE 20 MEQ CONTROLLED RELEASE TAB PO SCH (09:00)
[2016-08-19] MEDS ORDERED: ceFAZolin INJ 1,000 MG VIAL IV ONE ×2 (11:40→15:40)
[2016-08-19] MEDS ORDERED: CARDIOPLEGIC IRR IRRIGATION ONE (12:00)
[2016-08-19] MEDS ORDERED: PROTAMINE SULFATE 250 MG/25 ML VIAL IV ONE (13:03)
--- NOTE | 2016-08-19 15:04 | HHI.PR ---
Addendum to Inpatient Note Addendum Reason: Additional Documentation Additional Information ADDENDUM: Medicine team attempted to evaluate patient this morning, however, was in OR for surgery. I spoke with KP De León for CT surgery in person to discuss patient post-operative care. She agreed to that patient to be transferred under attending Dr. Charisma Whitney with CT surgery at this point given close management required per CT surgery. Medicine team may be consulted as needed. Discussed with Dr. Byrne and Dr. Tena, attending. Olga Mcintyre MD R1 Aug 19, 2016 15:04
[2016-08-19] MEDS ORDERED: ACETAMINOPHEN 650 MG SUPP RECTAL PRN (15:30)
[2016-08-19] MEDS ORDERED: POTASSIUM CHLORIDE 20 MEQ CONTROLLED RELEASE TAB PO PRN ×2 (15:30)
[2016-08-19] MEDS ORDERED: ACETAMINOPHEN 325 MG TAB PO PRN (15:30)
[2016-08-19] MEDS ORDERED: POTASSIUM CHLOR 20 MEQ PREMIX 100 ML IV PRN ×2 (15:30)
[2016-08-19] MEDS ORDERED: DOBUTamine PREMIX DRIP 250 ML IV SCH (15:30)
[2016-08-19] MEDS ORDERED: DOPamine INJ PREMIX 500 ML IV SCH (15:30)
[2016-08-19] MEDS ORDERED: EPINEPHrine (1:1000) INJ 4 MG in DEXTROSE 5% IN WATER INJ 246 ML IV SCH ×2 (15:30)
[2016-08-19] MEDS ORDERED: Post-op Orders (for Pharmacy) MISC OTHER ONE (15:30)
[2016-08-19] MEDS ORDERED: INSULIN REGULAR (IV INFUSION) 100 UNITS in SODIUM CHLORIDE 0.9% INJ 99 ML IV SCH (15:30)
[2016-08-19] MEDS ORDERED: MORPHINE SULFATE 4 MG/ML INJ IV PRN (15:30)
[2016-08-19] MEDS ORDERED: DEXTROSE 50% IN WATER 50 ML VIAL(D50) IV PUSH PRN (15:30)
[2016-08-19] MEDS ORDERED: ONDANSETRON HCL 4 MG/2 ML VIAL IV PUSH PRN (15:30)
[2016-08-19] MEDS ORDERED: CALCIUM CHLORIDE 10% 1 GRAM/10 ML VIAL IV PRN (15:30)
[2016-08-19] MEDS ORDERED: LACTATED RINGER'S 1000 ML INJ 500 ML IV PRN (15:30)
[2016-08-19] MEDS ORDERED: NITROGLYCERIN-DEXTROSE INJ 250 ML IV SCH (15:30)
[2016-08-19] MEDS ORDERED: MEPERIDINE HCL 25 MG/ML VIAL IV PRN (15:30)
[2016-08-19] MEDS ORDERED: hydrALAZINE HCL 20 MG/ML VIAL IV PRN (15:30)
[2016-08-19] MEDS ORDERED: MAGNESIUM SULFATE INJ 2 GM in SODIUM CHLORIDE 0.9% INJ 100 ML IV PRN ×4 (15:30)
[2016-08-19] MEDS ORDERED: PHENYLEPHRINE INJ 40 MG in DEXTROSE 5% IN WATE 500 ML INJ 496 ML IV SCH ×2 (15:30)
[2016-08-19] MEDS ORDERED: oxyCODONE/ACETAMINOPHEN 5 MG/325 MG TAB PO PRN ×2 (15:30)
[2016-08-19] MEDS ORDERED: METOPROLOL TARTRATE 5 MG/5 ML VIAL IV PUSH PRN (15:30)
[2016-08-19] MEDS ORDERED: ALBUMIN HUMAN 5% 12.5 GM/250 ML BOTTLE IV PRN (15:30)
[2016-08-19] MEDS ORDERED: ceFAZolin 2 GM PREMIX 50 ML IV SCH (16:00)
[2016-08-19] MEDS ORDERED: MIDAZOLAM HCL 5 MG/5 ML VIAL ONE ×2 (16:13)
[2016-08-19] MEDS ORDERED: fentaNYL CITRATE 1000 MCG/20 ML VIAL ONE (16:14)
[2016-08-19 16:21] LABS: INTERNATIONAL NORMALIZED RATIO 1.3 RATIO; PROTHROMBIN TIME - PATIENT 14.2 SEC (9.8-11.6)
[2016-08-19] MEDS ORDERED: PROPOFOL 500 MG/50 ML INJ 50 ML ONE (16:27)
--- NOTE | 2016-08-19 16:39 | RADRPT ---
EXAM DATE/TIME: 08/19/2016 15:58 [facility] COMPARISON: CHEST SINGLE AP, August 15, 2016, 18:13. INDICATIONS : Post op CABG. MEDICAL HISTORY : Hypercholesterolemia. Hypertension Hiatal hernia. Gout. SURGICAL HISTORY : None. ENCOUNTER: Initial ACUITY: 1 day PAIN SCORE: Non-responsive. LOCATION: chest FINDINGS: Examination of the chest demonstrates postoperative findings status post median sternotomy. Support l ascencion and tubes are in satisfactory position. Endotracheal tube is in place above the diana. There is no evidence of pneumothorax. CONCLUSION: 1. Postsurgical changes as above. There is no evidence of pneumothorax. Suresh Winn MD on August 19, 2016 at 16:37 Board Certified Radiologist. This report was verified electronically.
[2016-08-19] MEDS: ACETAMINOPHEN 1000 MG/100 ML VIAL IV SCH ×2 (16:52→22:10)
[2016-08-19] MEDS: DEXMEDETOMIDINE INJ 50 ML IV SCH (16:54)
[2016-08-19] MEDS: CLEVIDIPINE INJ 50 ML IV SCH ×3 (16:54→23:11)
[2016-08-19] MEDS ORDERED: RESP: ALBUTEROL 2.5 MG/IPRATROPIUM 0.5 MG NEB (PRN) NEB (17:00)
[2016-08-19] MEDS ORDERED: RESP: RACEPINEPHRINE 2.25% 0.5 ML NEB NEB PRN (17:00)
[2016-08-19] MEDS: CALCIUM CHLORIDE INJ 1 GM in SODIUM CHLORIDE 0.9% INJ 100 ML IV PRN ×2 (17:03→21:18)
--- NOTE | 2016-08-19 17:05 | PD.OP ---
cc: Charisma Whitney MD; Suresh Mcintyre MD Operative Report Date of Surgery: Aug 19, 2016 Preoperative Diagnosis: Postoperative Diagnosis: Procedure: 1. Coronary Artery Bypass Grafting x 4 with left internal mammary artery (RODRIGUEZ) to left anterior descending (LAD), reverse saphenous vein graft to Ramus marginalis, sequential reverse saphenous vein graft to the OM1 and OM2 2. Aortic valve replacement with a 27 mm Trifecta [place] Tissue valve 3. Ascending Aortic Aneurysm Replacement with a 36 mm Gelweave Graft 4. Left Leg Endoscopic Vein [place] 5. Intraoperative Vein Mapping. . Surgeon: Charisma Whitney . Manager News(s): Danielle Murillo . Operation and Findings: PREOPERATIVE DIAGNOSES 1. Severe Multi-Vessel Coronary Artery Disease 2. Moderate Aortic Insufficiency 3. Ascending Aortic Aneurysm POSTOPERATIVE DIAGNOSES Same SURGICAL PROCEDURE 1. Coronary Artery Bypass Grafting x 4 with left internal mammary artery (RODRIGUEZ) to left anterior descending (LAD), reverse saphenous vein graft to Ramus marginalis, sequential reverse saphenous vein graft to the OM1 and OM2 2. Aortic valve replacement with a 27 mm Trifecta [place] Tissue valve 3. Ascending Aortic Aneurysm Replacement with a 36 mm Gelweave Graft 4. Left Leg Endoscopic Vein [place] 5. Intraoperative Vein Mapping. DEFLECTOR OPERATOR ARSALAN Bosch ANESTHESIA General endotracheal. FLOUR BROKER Gurwinder Sims CRNA, Suresh Mclaughlin MD PREPARATION ChloraPrep. NEEDLE, SPONGE AND INSTRUMENT COUNT Correct. DRAINS Two 32[place] mediastinal tubes. COMPLICATIONS None. INDICATIONS The patient is an 66-year-old gentleman with severe multi-vessel CAD, Moderate aortic valvular insufficiency and a 5.2 cm ascending aortic aneurysm, presenting for surgical correction of the above pathologies. DESCRIPTION OF PROCEDURE The patient was brought to the operating room and placed supine on the OR table. Following the induction of adequate general endotracheal anesthesia and placement of appropriate monitoring devices, intraoperative vein mapping was performed which revealed suitable-caliber conduit in bilateral lower extremities. The patient was then prepped and draped in the standard sterile fashion. Next, 2500 units of intravenous heparin was given. The left greater saphenous vein was harvested endoscopically. This appeared to be a useable- caliber conduit. Simultaneously, a median sternotomy was performed and the left internal mammary artery dissected free off the posterior sternal table. The patient was systemically heparinized and anticoagulation monitored by serial ACT measurements. The internal mammary artery had good pulsatile flow in it and was a decent-caliber conduit. The pericardium was divided in the midline and the cradle created. Then 2 pursestring sutures of 2-0 Ethibond were placed on the aorta proximal to the takeoff of the innominate artery, another was placed in the right atrial appendage. At this point, aortic and 2-stage venous cannulas were introduced and attached to the arterial and venous components of the bypass circuit respectively. Antegrade, retrograde cardioplegia cannula and a left ventricular vent, through the right superior pulmonary vein, were also placed. The patient was placed on cardiopulmonary bypass and the distal anastomoses performed with pump-assist. The left internal mammary artery was anastomosed to the mid LAD in an end-to-side fashion using 7-0 Prolene. Of note , the LAD was deeply intramyocardial and was identified with ultrasound guidance. Segment of saphenous vein graft was then anastomosed to the Ramus in an end-to-side fashion using 7-0 Prolene. The next segment was anastomosed sequentially to the OM1 in a [id number] fashion and to the OM2 in an end-to- side fashion using 7-0 Prolene. Core cooling initiated to a temperature of 32 degrees centigrade. The crossclamp was applied and 1500 mls of cardioplegia solution (Residential HTK) given in a retrograde fashion in addition to topical cooling with slushed saline. An additional 1 L was thereafter given through the grafts. Upon achieving adequate diastolic arrest of the heart a transverse aortotomy was performed and the aorta transected. The aortic valve was then excised and sent for microbiologic analysis. Horizontal mattress sutures of interrupted 2-0 Ethibond were placed on the aortic annulus with pledgets on the ventricular side. After adequate sizing, a 27 mm Trifecta [place] valve was brought in the surgical field and the sutures passed through the skirt and the valve was situated. This appeared to be a good fit. Next the aneurysmal aorta was excised upto a relatively normal diameter just proximal to the arch. After adequate sizing, a 36 mm Gelweave graft was sewn to the distal aorta using a running 4-0 Prolene. Due to the thinned wall of the aorta the [place] aorta was sandwiched between two strips of telfa. Proximally, the aorta was excised to just above the coronary ostia and the graft sewn to the [place] aorta with a running 4-0 Prolene with telfa reinforcement. Bioglue was applied to both suture lines. Root vent was placed into the graft and the proximal anastomosis performed between the sequential vein graft and the Gelweave conduit. Due to the friability of his tissues the second vein proximal graft was teed off the former graft in a Y-fashion using a 6-0 running Prolene. Gradual rewarming was initiated. The cross clamp was removed and upon achieving normothermic cardiac activity, transesophageal echocardiography revealed a well-situated aortic prosthesis with no evidence of perivalvular leak and no aortic stenosis or aortic regurgitation. Protamine was administered. Decannulation was performed and all sites were inspected for hemostasis. At this point the closure was undertaken. The pericardium was reapproximated in the midline. 2 chest tubes placed, and the sternum was reapproximated using stainless steel sternal wires. The musculo-fascial layer was then closed in 3 layers. The patient tolerated the procedure well and was transferred to open heart recovery in critical but stable condition. Charisma Whitney MD Aug 19, 2016 17:05
[2016-08-19] MEDS ORDERED: SODIUM BICARBONATE 8.4% SOLN 50 MEQ/50 ML VIAL IV ONE (18:15)
[2016-08-19] MEDS: SODIUM CHLORIDE 0.9% FLUSH 10 ML FLUSH IV FLUSH SCH (20:50)
[2016-08-19] MEDS: AMIODARONE 200 MG TAB PO SCH (20:50)
[2016-08-19] MEDS: PRAVASTATIN SOD 80 MG TAB PO SCH (20:50)
[2016-08-19] MEDS: POTASSIUM CHLOR 20 MEQ PREMIX 100 ML IV PRN ×3 (20:51→23:12)
[2016-08-19] MEDS: RESP: ALBUTEROL 2.5 MG/IPRATROPIUM 0.5 MG NEB (SCH) NEB (20:53)
[2016-08-20] VITALS (19 sets, daily range): BP systolic 115–135; BP diastolic 39–75; PULSE 72–94; RESP 18–24; TEMP 97.9–99.8; O2SAT 92–98
[2016-08-20] MEDS ORDERED: LORazepam 2 MG/ML VIAL ONE (00:25)
[2016-08-20] MEDS ORDERED: LORazepam 2 MG/ML VIAL IV ONE (01:00)
[2016-08-20] MEDS: ceFAZolin 2 GM PREMIX 50 ML IV SCH ×4 (01:22→23:30)
[2016-08-20] MEDS: POTASSIUM CHLOR 20 MEQ PREMIX 100 ML IV PRN ×3 (01:23→03:49)
[2016-08-20] MEDS: DEXMEDETOMIDINE INJ 50 ML IV SCH (03:04)
[2016-08-20] MEDS: RESP: ALBUTEROL 2.5 MG/IPRATROPIUM 0.5 MG NEB (SCH) NEB ×3 (03:32→19:57)
[2016-08-20] MEDS: CLEVIDIPINE INJ 50 ML IV SCH ×2 (03:50→07:53)
[2016-08-20] MEDS: ACETAMINOPHEN 1000 MG/100 ML VIAL IV SCH ×2 (03:51→09:42)
--- NOTE | 2016-08-20 05:01 | RADRPT ---
EXAM DATE/TIME: 08/20/2016 04:06 [facility] COMPARISON: CHEST SINGLE AP, August 19, 2016, 15:58. INDICATIONS : Patient developed altered mental status with shortness of breath and tried to pull his chest tubes. MEDICAL HISTORY : None. SURGICAL HISTORY : CABG. Valve replacement Aneurysm repair ENCOUNTER: Subsequent ACUITY: 3 days PAIN SCORE: Non-responsive. LOCATION: Bilateral chest FINDINGS: A single view of the chest demonstrates right central line in superior vena cava. Left chest tube wit hout pneumothorax. Postoperative median sternotomy. Central chest tube also present. Mild basilar dep endent airspace disease. CONCLUSION: 1. Mild basilar dependent airspace disease. Cardiomegaly. Interval extubation. Central and left chest tube remain without pneumothorax. Renny Fuentes MD on August 20, 2016 at 4:58 Board Certified Radiologist. This report was verified electronically.
[2016-08-20 05:50] LABS: HEMATOCRIT 36.2 % (39.0-51.0); MEAN CELL VOLUME 91.5 FL (80.0-100.0); MEAN CORPUSCULAR HEMOGLOBIN 30.9 PG (27.0-34.0); MEAN CORPUSCULAR HGB CONC 33.7 % (32.0-36.0); PLATELET COUNT 135 TH/MM3 (150-450); RED BLOOD COUNT 3.96 MIL/MM3 (4.50-5.90); REVIEW FLAG FINAL; WHITE BLOOD COUNT 13.7 TH/MM3 (4.0-11.0)
[2016-08-20 06:13] LABS: BICARBONATE 25.4 MEQ/L (21.0-32.0)
[2016-08-20] MEDS: PANTOPRAZOLE SOD 40 MG DELAYED RELEASE TAB PO SCH (06:43)
[2016-08-20] MEDS ORDERED: GLUCAGON 1 MG/ML VIAL OTHER PRN (08:45)
[2016-08-20] MEDS ORDERED: SOD PHOSPHATE/SOD BIPHOSPHATE (ADULT) ENEMA 133ML RECTAL PRN (08:45)
[2016-08-20] MEDS ORDERED: BISACODYL 10 MG SUPP RECTAL PRN (08:45)
[2016-08-20] MEDS ORDERED: DEXTROSE 50% IN WATER 50 ML VIAL(D50) IV PRN (08:45)
[2016-08-20] MEDS: SODIUM CHLORIDE 0.9% FLUSH 10 ML FLUSH IV FLUSH SCH (09:00)
[2016-08-20] MEDS: SODIUM CHLORIDE 0.9% FLUSH 10 ML FLUSH IVF SCH ×2 (09:00→23:30)
[2016-08-20] MEDS: METOPROLOL TARTRATE 25 MG TAB PO SCH ×3 (09:06→20:47)
[2016-08-20] MEDS: ASPIRIN 81 MG CHEW TAB PO SCH (09:06)
[2016-08-20] MEDS: AMIODARONE 200 MG TAB PO SCH ×2 (09:06→20:47)
[2016-08-20] MEDS: CLOPIDOGREL 75 MG TAB PO SCH (09:07)
[2016-08-20] MEDS: POTASSIUM CHLORIDE 20 MEQ CONTROLLED RELEASE TAB PO SCH (09:07)
--- NOTE | 2016-08-20 09:25 | PD.CAR.PN ---
CVT Progress Note CVT: POD #: 1 Subjective/Hospital Course: Patient admitted through ED for left chest pain with known multivessel CAD and ascending TAA 5.2 cm scheduled for sugery 08/27/16. Currently, he is pain-free. Heart cath completed 08/14/16 75% distal LAD, Circ 90% OM 90% RCA 100% / EF 66% PMH: HTN, HLP plan for Coronary artery bypass grafting , ascending aortic aneurysm repair and aortic valve replacement / scheduled for WED 08/1908/17/16 pt had some chest pain this am 1-07/03 started on Heparin gtt / nitropaste , on ASA 08/18/16 had very minimal pain this am, scheduled for surgery in am no sts risk stratification 2/2 additional of ascending aortic aneurysm repair 08/19 surgery : Coronary Artery Bypass Grafting x 4 with left internal mammary artery (RODRIGUEZ) to left anterior descending (LAD), reverse saphenous vein graft to Ramus marginalis, sequential reverse saphenous vein graft to the OM1 and OM2 Aortic valve replacement with a 27 mm Trifecta [place] Tissue valve, Ascending Aortic Aneurysm Replacement with a 36 mm Gelweave Graft, Left Leg Endoscopic Vein [place] crystalloid 2100, 1250 cell saver, 250cc EBL one unit cryo one plt, 2 units FFP 08/20 pt had some agitation and confusion last night , required precedex, which is being weaned off on cleviprex to keep SBP<120 start BB and diuresis + 4kg / CT 280cc/ 12 hrs / on 5 liters 02 / needs aggressive pulm toileting OOB, ambulate CXR noted, widened cardio silhou Objective: Vital Signs Date Time Temp Pulse Resp B/P Pulse Ox O2 Delivery O2 Flow Rate FiO2 08/20/16 07:31 92 Nasal Cannula 5.00 08/20/16 07:30 72 08/20/16 07:29 99.4 72 18 118/62 92 08/20/16 04:45 95 Simple Mask 10.00 08/20/16 04:00 97 Simple Mask 10.00 08/20/16 04:00 74 08/20/16 04:00 98.9 74 18 121/65 97 08/20/16 00:00 92 08/20/16 00:00 98 Nasal Cannula 5.00 08/20/16 00:00 99.0 93 24 125/58 98 08/19/16 20:52 94 Nasal Cannula 5.00 08/19/16 20:00 98.5 93 18 109/53 95 08/19/16 20:00 92 08/19/16 20:00 95 Nasal Cannula 5.00 08/19/16 18:50 95 Nasal Cannula 6.00 08/19/16 18:42 95 Nasal Cannula 6 08/19/16 18:40 96 Nasal Cannula 5.00 Humidified 08/19/16 18:00 82 08/19/16 17:14 99 50 08/19/16 17:00 75 08/19/16 16:32 98 60 08/19/16 16:05 95 50 08/19/16 16:02 50 08/19/16 16:02 97.6 68 12 124/72 87 115/59 08/19/16 16:02 92 Mechanical Ventilator 50 08/19/16 16:02 68 Labs: Laboratory Tests Test 08/20/16 05:30 White Blood Count 13.7 TH/MM3 (4.0-11.0) Red Blood Count 3.96 MIL/MM3 (4.50-5.90) Hemoglobin 12.2 GM/DL (13.0-17.0) Hematocrit 36.2 % (39.0-51.0) Mean Corpuscular Volume 91.5 FL (80.0-100.0) Mean Corpuscular Hemoglobin 30.9 PG (27.0-34.0) Mean Corpuscular Hemoglobin 33.7 % Concent (32.0-36.0) Red Cell Distribution Width 14.0 % (11.6-17.2) Platelet Count 135 TH/MM3 (150-450) Mean Platelet Volume 8.6 FL (7.0-11.0) Sodium Level 144 MEQ/L (136-145) Potassium Level 4.0 MEQ/L (3.5-5.1) Chloride Level 109 MEQ/L (98-107) Carbon Dioxide Level 25.4 MEQ/L (21.0-32.0) Anion Gap 10 MEQ/L (5-15) Blood Urea Nitrogen 23 MG/DL (7-18) Creatinine 1.41 MG/DL (0.60-1.30) Estimat Glomerular Filtration 50 ML/MIN (>89) Rate Random Glucose 123 MG/DL (74-106) Calcium Level 8.8 MG/DL (8.5-10.1) Magnesium Level 2.0 MG/DL (1.5-2.5) Result Diagram: 08/20/1652908/20/16529 (1) Chest pain Plan: on nitro paste / heparin gtt (2) Hypertension Plan: add BB, on dyazide (3) Hyperlipidemia Plan: on statin (4) HELEN (acute kidney injury) Plan: recheck indices in am / creatinine improved 1.40 K + replaced born with one kidney / avoid nephrotoxins Ines Parker Aug 20, 2016 09:25
[2016-08-20] MEDS: DOCUSATE SODIUM 100 MG CAP PO SCH ×2 (09:30→20:47)
[2016-08-20] MEDS ORDERED: DOCUSATE SODIUM 100 MG CAP PO SCH (09:30)
[2016-08-20] MEDS ORDERED: FUROSEMIDE 40 MG/4 ML VIAL IV PUSH ONE (09:30)
[2016-08-20] MEDS ORDERED: POTASSIUM CHLORIDE 20 MEQ CONTROLLED RELEASE TAB PO ONE (09:30)
[2016-08-20] MEDS: MAGNESIUM HYDROXIDE SUSP 30 ML CUP PO SCH (09:42)
[2016-08-20] MEDS: MULTIVITAMINS/MINERALS THERAPEUTIC TAB PO SCH (09:42)
[2016-08-20] MEDS: INSULIN ASPART SUPPLEMENTAL SCALE SQ SCH ×4 (10:00→23:29)
--- NOTE | 2016-08-20 10:45 | PD.CAR.PN ---
CVT Progress Note Subjective/Hospital Course: Patient admitted through ED for left chest pain with known multivessel CAD and ascending TAA 5.2 cm scheduled for sugery 08/27/16. Currently, he is pain-free. Heart cath completed 08/14/16 75% distal LAD, Circ 90% OM 90% RCA 100% / EF 66% PMH: HTN, HLP plan for Coronary artery bypass grafting , ascending aortic aneurysm repair and aortic valve replacement / scheduled for WED 08/1908/17/16 pt had some chest pain this am 1-07/03 started on Heparin gtt / nitropaste , on ASA 08/18/16 had very minimal pain this am, scheduled for surgery in am no sts risk stratification 2/2 additional of ascending aortic aneurysm repair 08/19 surgery : Coronary Artery Bypass Grafting x 4 with left internal mammary artery (RODRIGUEZ) to left anterior descending (LAD), reverse saphenous vein graft to Ramus marginalis, sequential reverse saphenous vein graft to the OM1 and OM2 Aortic valve replacement with a 27 mm Trifecta [place] Tissue valve, Ascending Aortic Aneurysm Replacement with a 36 mm Gelweave Graft, Left Leg Endoscopic Vein [place] crystalloid 2100, 1250 cell saver, 250cc EBL one unit cryo one plt, 2 units FFP 08/20 pt had some agitation and confusion last night , required precedex, which is being weaned off on cleviprex to keep SBP<120 start BB and diuresis + 4kg / CT 280cc/ 12 hrs / on 5 liters 02 / needs aggressive pulm toileting OOB, ambulate CXR noted, Objective: GENERAL: SKIN: Warm and dry.prevena to chest incision left leg intact HEAD: Normocephalic. EYES: No scleral icterus. No injection or drainage. NECK: Supple, trachea midline. No JVD or lymphadenopathy. CARDIOVASCULAR: Regular rate and rhythm without murmurs, gallops, or rubs. RESPIRATORY: diminished in bases Breath sounds equal bilaterally. No accessory muscle use. GASTROINTESTINAL: Abdomen soft, non-tender, nondistended. MUSCULOSKELETAL: No cyanosis, or edema. BACK: Nontender without obvious deformity. No CVA tenderness. Vital Signs Date Time Temp Pulse Resp B/P Pulse Ox O2 Delivery O2 Flow Rate FiO2 08/20/16 09:35 94 Nasal Cannula 6.00 08/20/16 07:31 92 Nasal Cannula 5.00 08/20/16 07:30 72 08/20/16 07:29 99.4 72 18 118/62 92 08/20/16 04:45 95 Simple Mask 10.00 08/20/16 04:00 97 Simple Mask 10.00 08/20/16 04:00 74 08/20/16 04:00 98.9 74 18 121/65 97 08/20/16 00:00 92 08/20/16 00:00 98 Nasal Cannula 5.00 08/20/16 00:00 99.0 93 24 125/58 98 08/19/16 20:52 94 Nasal Cannula 5.00 08/19/16 20:00 98.5 93 18 109/53 95 08/19/16 20:00 92 08/19/16 20:00 95 Nasal Cannula 5.00 08/19/16 18:50 95 Nasal Cannula 6.00 08/19/16 18:42 95 Nasal Cannula 6 08/19/16 18:40 96 Nasal Cannula 5.00 Humidified 08/19/16 18:00 82 08/19/16 17:14 99 50 08/19/16 17:00 75 08/19/16 16:32 98 60 08/19/16 16:05 95 50 08/19/16 16:02 50 08/19/16 16:02 97.6 68 12 124/72 87 115/59 08/19/16 16:02 92 Mechanical Ventilator 50 08/19/16 16:02 68 Labs: Laboratory Tests Test 08/20/16 05:30 White Blood Count 13.7 TH/MM3 (4.0-11.0) Red Blood Count 3.96 MIL/MM3 (4.50-5.90) Hemoglobin 12.2 GM/DL (13.0-17.0) Hematocrit 36.2 % (39.0-51.0) Mean Corpuscular Volume 91.5 FL (80.0-100.0) Mean Corpuscular Hemoglobin 30.9 PG (27.0-34.0) Mean Corpuscular Hemoglobin 33.7 % Concent (32.0-36.0) Red Cell Distribution Width 14.0 % (11.6-17.2) Platelet Count 135 TH/MM3 (150-450) Mean Platelet Volume 8.6 FL (7.0-11.0) Sodium Level 144 MEQ/L (136-145) Potassium Level 4.0 MEQ/L (3.5-5.1) Chloride Level 109 MEQ/L (98-107) Carbon Dioxide Level 25.4 MEQ/L (21.0-32.0) Anion Gap 10 MEQ/L (5-15) Blood Urea Nitrogen 23 MG/DL (7-18) Creatinine 1.41 MG/DL (0.60-1.30) Estimat Glomerular Filtration 50 ML/MIN (>89) Rate Random Glucose 123 MG/DL (74-106) Calcium Level 8.8 MG/DL (8.5-10.1) Magnesium Level 2.0 MG/DL (1.5-2.5) Result Diagram: 08/20/1652908/20/16529 Cardiovascular: NSR (1) Coronary artery disease (2) S/P CABG x 4 Plan: ASA, statin , BB, amiodarone OOB ambulate wean 02/ diuresis today leave chest tubes in CM to eval for HHC (3) S/P ascending aortic aneurysm repair (4) S/P AVR (aortic valve replacement) (5) Hyperlipidemia Plan: on statin (6) Hypertension Plan: add BB, Keep [id number] prn hydralazine (7) HELEN (acute kidney injury) Plan: recheck indices in am / creatinine improved 1.40 stable born with one kidney / avoid nephrotoxins (8) ICU psychosis Plan: improved this am environmental cues wean off precedex Ines Parker Aug 20, 2016 10:45
--- NOTE | 2016-08-20 10:49 | HHI.FF ---
Face to Face Verification Diagnosis: (1) Coronary artery disease (2) Hyperlipidemia (3) Hypertension (4) Thoracic aortic aneurysm (5) S/P AVR (aortic valve replacement) (6) S/P CABG x 4 (7) S/P ascending aortic aneurysm repair Physical Therapy Order: Evaluate and Treat Home Health Nursing Order: Signs/symptoms of disease process Wound care and dressing changes Nursing assessment with vital signs Instructions: Incentive spirometry Q1 hr x 10, while awake, also use acapella device hourly whole awake Sternal Breast Bone Precautions: NO pushing or pulling, ( pt must use sternal pillow to support chest with all activities and with coughing ( takes up to 3 months breast bone to heal ) Daily incision care: ok to shower daily, no tub bath. Wash all incisions with liquid dial soap, clean wash cloth to each site, rinse and pat dry. Observe for any signs of infection, such as drainage which is dark yellow, britt, green or foul smelling. Immediately report to the surgeon any drainage from the chest incision, or legs, and for any abnormal drainage from the chest tube sites. Notify surgeon if any temp >101.5 degrees F. When specialty dressing removed/ or if you do not have one, continue to shower daily as above, then rinse and pat incision dry and paint with betadine daily x 5 days. Allow steri strips to fall off if you have any. Avoid lotions, creams, salves, oils, etc. for the first month Please see attached forms for additional instructions regarding post Open Heart specialty wound vacuum dressings. SINDI or Prevena , Dressing to be removed by Nursing staff on 08/26/16 F/U appointment: as per MT instructions: PCP in 2 weeks, CV surgeon 4 weeks, Sports Official 3-4 weeks For any questions regarding incisions/ dressing / meds / post op care or above Symptoms, Wednesday 8am-5pm Heart & Vascular Surgery Office ( Dr. Whitney & Dr. Nicole), After Hours / Nights (5pm -8am) Weekends and Holidays Please call [facility] ([facility]) Charge Nurse Heart and Vascular Surgery patients *Special attention to sternal dressing Mandatory frequency Assess and evaluation, 4 days in a row The next week 3X week 2 times a week for 4 weeks 1 time a week for 5 weeks Schedule Heart and Vascular patients for full 60 day certification period Initial visit Review Open Heart Surgery Discharge Instructions (Sternal precautions, Activity, Elastic hose, Incision care, Driving, Incentive spirometry, Smoking, [place], Work and other) Need Betadine to paint incision Medication reconciliation Importance of follow up care/ check on appointments Make calendar record temperature daily When to call [facility] nurse, review instructions, phone list Incentive Spirometry, demonstration Visit 1- Begin discharge instruction for patient family and/ or caregiver using teach back method- Signs and symptoms of infection Disease characteristics Medicines and side effects Foods and nutrition/ appetite Infection control/ hand washing/ hygiene Visit 2- Continue teaching Discharge instructions- include additional information on smoking cessation , sternal dressing (sternal vac) Visit 3- Continue teaching- Cough and deep breathing, incision monitoring. Choose my plate Visit 4- Continue teaching- Discuss limitations Discuss how they are feeling Discuss progress toward goals Remaining visits- continue teaching and monitoring I have seen patient Mo Antonio on 08/20/16. My clinical findings support the need for the requested home health care services because: Deconditioned w/ increased weakness I certify that my clinical findings support that this patient is homebound because: Post-op weakness Ines Parker Aug 20, 2016 10:49
--- NOTE | 2016-08-20 13:28 | EKG ---
Date Performed: 08/20/2016 Time Performed: 06:35:36 PTAGE: 66 years EKG: Sinus rhythm Prolonged QT interval Inferior infarct - age undetermined Abnormal ECG PREVIOUS TRACING : 08/16/2016 05.23 Compared to prior tracing no significant change DOCTOR: Suresh Mcintyre Interpretating Date/Time 08/20/2016 13:27:50
[2016-08-20] MEDS: ACETAMINOPHEN/HYDROcodone 325 MG/7.5 MG TAB PO PRN ×2 (14:22→20:46)
[2016-08-20] MEDS: PRAVASTATIN SOD 80 MG TAB PO SCH (20:47)
[2016-08-20] MEDS: SENNOSIDES 8.6 MG TAB PO SCH (20:47)
[2016-08-21] VITALS (33 sets, daily range): BP systolic 105–147; BP diastolic 66–96; PULSE 70–138; RESP 16–20; TEMP 97.9–99.5; O2SAT 90–99
[2016-08-21] MEDS: ACETAMINOPHEN/HYDROcodone 325 MG/7.5 MG TAB PO PRN (01:09)
[2016-08-21] MEDS: PANTOPRAZOLE SOD 40 MG DELAYED RELEASE TAB PO SCH (04:35)
[2016-08-21] MEDS: INSULIN ASPART SUPPLEMENTAL SCALE SQ SCH ×5 (04:37→21:00)
[2016-08-21 04:39] LABS: BASOPHIL % 0.1 % (0.0-2.0); HEMATOCRIT 33.5 % (39.0-51.0); HEMO FLAGS DIFF FINAL; LYMPH % 8.5 % (9.0-44.0); LYMPHOCYTE # 1.7 TH/MM3 (1.0-4.8); MEAN CELL VOLUME 91.8 FL (80.0-100.0); MEAN CORPUSCULAR HGB CONC 34.8 % (32.0-36.0); MONO % 10.8 % (0.0-8.0); NEUT % 80.6 % (16.0-70.0); PLATELET COUNT 143 TH/MM3 (150-450); RED BLOOD COUNT 3.65 MIL/MM3 (4.50-5.90); RED CELL DISTRIBUTION WIDTH 14.1 % (11.6-17.2); WHITE BLOOD COUNT 19.9 TH/MM3 (4.0-11.0)
[2016-08-21 05:05] LABS: BICARBONATE 28.9 MEQ/L (21.0-32.0); MAGNESIUM 2.2 MG/DL (1.5-2.5); POTASSIUM 4.1 MEQ/L (3.5-5.1)
[2016-08-21] MEDS: RESP: ALBUTEROL 2.5 MG/IPRATROPIUM 0.5 MG NEB (SCH) NEB ×3 (07:23→20:03)
[2016-08-21] MEDS: POLYETHYLENE GLYCOL 17 GM PKG PO SCH (08:49)
[2016-08-21] MEDS: MAGNESIUM HYDROXIDE SUSP 30 ML CUP PO SCH (08:49)
[2016-08-21] MEDS: DOCUSATE SODIUM 100 MG CAP PO SCH ×2 (08:49→22:04)
[2016-08-21] MEDS: AMIODARONE 200 MG TAB PO SCH ×2 (08:49→22:04)
[2016-08-21] MEDS: MULTIVITAMINS/MINERALS THERAPEUTIC TAB PO SCH (08:50)
[2016-08-21] MEDS: traMADol HCL 50 MG TAB PO SCH ×4 (08:50→20:00)
[2016-08-21] MEDS: ASPIRIN 81 MG CHEW TAB PO SCH (08:51)
[2016-08-21] MEDS: CLOPIDOGREL 75 MG TAB PO SCH (08:51)
[2016-08-21] MEDS: METOPROLOL TARTRATE 25 MG TAB PO SCH ×2 (08:51→22:04)
[2016-08-21] MEDS: ceFAZolin 2 GM PREMIX 50 ML IV SCH (08:53)
[2016-08-21] MEDS: SODIUM CHLORIDE 0.9% FLUSH 10 ML FLUSH IVF SCH ×2 (12:03→22:04)
[2016-08-21] MEDS ORDERED: AMIO200T PO (16:35)
[2016-08-21] MEDS ORDERED: PLAV75TA29 PO (16:35)
[2016-08-21] MEDS ORDERED: THERM PO (16:35)
[2016-08-21] MEDS ORDERED: DOCU1CAP39 PO (16:35)
[2016-08-21] MEDS ORDERED: METO25TA3 PO (16:35)
[2016-08-21] MEDS ORDERED: WALKER WHEELS/F1 MIS (16:44)
[2016-08-21] MEDS ORDERED: MISC-163 (16:44)
[2016-08-21] MEDS ORDERED: FUROSEMIDE 20 MG/2 ML VIAL IV PUSH ONE (16:45)
--- NOTE | 2016-08-21 16:54 | PD.CAR.PN ---
CVT Progress Note CVT: POD #: 2 Subjective/Hospital Course: Patient admitted through ED for left chest pain with known multivessel CAD and ascending TAA 5.2 cm scheduled for sugery 08/27/16. Currently, he is pain-free. Heart cath completed 08/14/16 75% distal LAD, Circ 90% OM 90% RCA 100% / EF 66% PMH: HTN, HLP plan for Coronary artery bypass grafting , ascending aortic aneurysm repair and aortic valve replacement / scheduled for WED 08/1908/17/16 pt had some chest pain this am 1-07/03 started on Heparin gtt / nitropaste , on ASA 08/18/16 had very minimal pain this am, scheduled for surgery in am no sts risk stratification 2/2 additional of ascending aortic aneurysm repair 08/19 surgery : Coronary Artery Bypass Grafting x 4 with left internal mammary artery (RODRIGUEZ) to left anterior descending (LAD), reverse saphenous vein graft to Ramus marginalis, sequential reverse saphenous vein graft to the OM1 and OM2 Aortic valve replacement with a 27 mm Trifecta [place] Tissue valve, Ascending Aortic Aneurysm Replacement with a 36 mm Gelweave Graft, Left Leg Endoscopic Vein [place] crystalloid 2100, 1250 cell saver, 250cc EBL one unit cryo one plt, 2 units FFP 08/20 pt had some agitation and confusion last night , required precedex, which is being weaned off on cleviprex to keep SBP<120 start BB and diuresis + 4kg / CT 280cc/ 12 hrs / on 5 liters 02 / needs aggressive pulm toileting OOB, ambulate CXR noted, 08/21 chest tube removed without difficulty had some mild hallucinations at night not sleeping well , needs environmental cues will dc narcotics/ ultram for pain gentle diuresis / + leukocytosis / CVC line dc will recheck in am , continue nebs, ezpap and acapella Objective: GENERAL: SKIN: Warm and dry.prevena to chest, incision intact left leg HEAD: Normocephalic. EYES: No scleral icterus. No injection or drainage. NECK: Supple, trachea midline. No JVD or lymphadenopathy. CARDIOVASCULAR: Regular rate and rhythm without murmurs, gallops, or rubs. RESPIRATORY:diminished in bases Breath sounds equal bilaterally. No accessory muscle use. GASTROINTESTINAL: Abdomen soft, non-tender, nondistended. MUSCULOSKELETAL: No cyanosis, or edema. BACK: Nontender without obvious deformity. No CVA tenderness. Vital Signs Date Time Temp Pulse Resp B/P Pulse Ox O2 Delivery O2 Flow Rate FiO2 08/21/16 11:19 93 Room Air 08/21/16 11:19 79 08/21/16 11:19 98.0 79 16 134/84 93 08/21/16 07:30 93 Room Air 08/21/16 07:30 97.9 79 18 122/74 93 08/21/16 07:30 79 08/21/16 07:25 99 Nasal Cannula 2.00 08/21/16 05:12 99.5 82 20 131/82 92 08/21/16 05:08 92 Nasal Cannula 2.00 08/21/16 05:00 84 08/21/16 04:00 80 08/21/16 03:00 79 08/21/16 02:00 78 08/21/16 01:00 80 08/21/16 00:25 98.5 76 20 127/66 91 08/21/16 00:00 78 08/20/16 23:00 77 08/20/16 22:00 76 08/20/16 21:04 95 Nasal Cannula 2.00 08/20/16 21:02 99.8 94 20 135/39 95 08/20/16 21:00 92 08/20/16 20:00 74 08/20/16 19:59 97 08/20/16 19:00 76 08/20/16 18:00 74 08/20/16 17:00 76 Result Diagram: 08/21/16 0430 08/21/16 0430 Telemetry: NSR (1) Coronary artery disease (2) S/P CABG x 4 Plan: ASA, statin , BB, amiodarone keep SBP<130 OOB ambulate wean 02/ diuresis today chest tubes dc CM to eval for HHC (3) S/P ascending aortic aneurysm repair (4) S/P AVR (aortic valve replacement) (5) Hyperlipidemia Plan: on statin (6) Hypertension Plan: add BB, Keep [id number] prn hydralazine (7) HELEN (acute kidney injury) Plan: recheck indices in am / creatinine stable stable born with one kidney / avoid nephrotoxins (8) ICU psychosis Plan: had mild hallucinations last pm dc narcotics ultram for pain environmental cues Elena,Ines R. BREAD BAKER Aug 21, 2016 16:54
[2016-08-21] MEDS ORDERED: POTASSIUM CHLORIDE 10 MEQ CONTROLLED RELEASE TAB PO ONE (17:00)
[2016-08-21] MEDS ORDERED: AMIODARONE 150 MG/D5W 97 ML BOLUS 10 MINUTES IV ONE ×2 (20:00)
[2016-08-21] MEDS: AMIODARONE INJ 450 MG in D5W (EXCEL BAG) 241 ML IV SCH (20:21)
[2016-08-21] MEDS: PRAVASTATIN SOD 80 MG TAB PO SCH (22:03)
[2016-08-21] MEDS: SENNOSIDES 8.6 MG TAB PO SCH (22:03)
[2016-08-22] VITALS (26 sets, daily range): BP systolic 104–142; BP diastolic 76–86; PULSE 70–120; RESP 16–20; TEMP 98.3–98.6; O2SAT 91–93
[2016-08-22] MEDS: AMIODARONE INJ 450 MG in D5W (EXCEL BAG) 241 ML IV SCH (03:04)
[2016-08-22 05:12] LABS: AUTOMATED NEUTROPHIL # 15.1 TH/MM3 (1.8-7.7); BASOPHIL % 0.1 % (0.0-2.0); EOSINOPHIL % 0.2 % (0.0-4.0); HEMO FLAGS DIFF FINAL; LYMPH % 11.4 % (9.0-44.0); LYMPHOCYTE # 2.1 TH/MM3 (1.0-4.8); MEAN CELL VOLUME 92.6 FL (80.0-100.0); MEAN CORPUSCULAR HEMOGLOBIN 31.7 PG (27.0-34.0); MEAN CORPUSCULAR HGB CONC 34.3 % (32.0-36.0); NEUT % 82.3 % (16.0-70.0); PLATELET COUNT 133 TH/MM3 (150-450); RED BLOOD COUNT 3.35 MIL/MM3 (4.50-5.90); RED CELL DISTRIBUTION WIDTH 13.9 % (11.6-17.2); WHITE BLOOD COUNT 18.3 TH/MM3 (4.0-11.0)
[2016-08-22] MEDS: PANTOPRAZOLE SOD 40 MG DELAYED RELEASE TAB PO SCH (05:18)
--- NOTE | 2016-08-22 05:22 | RADRPT ---
EXAM DATE/TIME: 08/22/2016 04:49 [facility] COMPARISON: CHEST SINGLE AP, August 20, 2016, 4:06. INDICATIONS : Shortness of breath, possible pulmonary disease. MEDICAL HISTORY : None. SURGICAL HISTORY : CABG. valve replacement aneurysm repair ENCOUNTER: Subsequent ACUITY: 4 - 6 days PAIN SCORE: Non-responsive. LOCATION: Bilateral chest FINDINGS: Portable AP view of the chest demonstrates cardiac silhouette size at the upper limits for normal in this patient post median sternotomy. The right IJ line has been removed. A left chest tube has also b een removed and no definite pneumothorax is visualized. There is bibasilar airspace opacity slightly increased from the prior examination. CONCLUSION: 1. Left chest tube has been removed and no definite pneumothorax is visualized. 2. Bibasilar airspace opacity, slightly increased from the prior study. Joseph Ramirez MD on August 22, 2016 at 5:20 Board Certified Radiologist. This report was verified electronically.
[2016-08-22 05:26] LABS: BICARBONATE 29.6 MEQ/L (21.0-32.0); POTASSIUM 3.7 MEQ/L (3.5-5.1)
[2016-08-22] MEDS: RESP: ALBUTEROL 2.5 MG/IPRATROPIUM 0.5 MG NEB (SCH) NEB ×2 (08:10→12:45)
[2016-08-22] MEDS: AMIODARONE 200 MG TAB PO SCH ×2 (09:00→21:01)
[2016-08-22] MEDS: MAGNESIUM HYDROXIDE SUSP 30 ML CUP PO SCH (09:43)
[2016-08-22] MEDS: DOCUSATE SODIUM 100 MG CAP PO SCH ×2 (09:45→21:01)
[2016-08-22] MEDS: METOPROLOL TARTRATE 25 MG TAB PO SCH ×2 (09:45→21:01)
[2016-08-22] MEDS: CLOPIDOGREL 75 MG TAB PO SCH (09:45)
[2016-08-22] MEDS: traMADol HCL 50 MG TAB PO SCH ×2 (09:45)
[2016-08-22] MEDS: MULTIVITAMINS/MINERALS THERAPEUTIC TAB PO SCH (09:46)
[2016-08-22] MEDS: ASPIRIN 81 MG CHEW TAB PO SCH (09:46)
--- NOTE | 2016-08-22 09:49 | PD.CAR.PN ---
CVT Progress Note Subjective/Hospital Course: Patient admitted through ED for left chest pain with known multivessel CAD and ascending TAA 5.2 cm scheduled for sugery 08/27/16. Currently, he is pain-free. Heart cath completed 08/14/16 75% distal LAD, Circ 90% OM 90% RCA 100% / EF 66% PMH: HTN, HLP plan for Coronary artery bypass grafting , ascending aortic aneurysm repair and aortic valve replacement / scheduled for WED 08/1908/17/16 pt had some chest pain this am 1-07/03 started on Heparin gtt / nitropaste , on ASA 08/18/16 had very minimal pain this am, scheduled for surgery in am no sts risk stratification / additional of ascending aortic aneurysm repair 08/19 surgery : Coronary Artery Bypass Grafting x 4 with left internal mammary artery (RODRIGUEZ) to left anterior descending (LAD), reverse saphenous vein graft to Ramus marginalis, sequential reverse saphenous vein graft to the OM1 and OM2 Aortic valve replacement with a 27 mm Trifecta [place] Tissue valve, Ascending Aortic Aneurysm Replacement with a 36 mm Gelweave Graft, Left Leg Endoscopic Vein [place] crystalloid 2100, 1250 cell saver, 250cc EBL one unit cryo one plt, 2 units FFP 08/20 pt had some agitation and confusion last night , required precedex, which is being weaned off on cleviprex to keep SBP<120 start BB and diuresis + 4kg / CT 280cc/ 12 hrs / on 5 liters needs aggressive pulm toileting OOB, ambulate CXR noted, 08/21 chest tube removed without difficulty had some mild hallucinations at night not sleeping well , needs environmental cues will dc narcotics/ ultram for pain gentle diuresis / + leukocytosis / CVC line dc will recheck in am , continue nebs, ezpap and acapella 08/22 Doing well. A-fib with RVR yesterday. Rate controlled today. On IV Amiodarone Monitor rhythm Constipated Objective: Vital Signs Date Time Temp Pulse Resp B/P Pulse Ox O2 Delivery O2 Flow Rate FiO2 08/22/16 08:13 93 21 08/22/16 08:04 91 Room Air 08/22/16 08:04 98.3 119 20 137/81 91 08/22/16 04:00 100 08/22/16 03:54 98.6 105 16 120/86 91 08/22/16 03:52 91 Room Air 08/22/16 03:00 105 08/22/16 02:00 100 08/22/16 01:00 98 08/22/16 00:00 98 08/21/16 23:56 98.6 102 16 105/75 90 08/21/16 23:55 90 Room Air 08/21/16 23:00 106 08/21/16 22:00 126 08/21/16 21:00 122 08/21/16 20:59 91 Room Air 08/21/16 20:58 98.5 125 16 128/83 91 08/21/16 20:31 129 08/21/16 20:07 92 21 08/21/16 20:00 134 08/21/16 19:00 137 08/21/16 18:30 138 08/21/16 18:00 124 08/21/16 17:00 80 08/21/16 16:00 82 08/21/16 15:45 97 08/21/16 15:45 98.6 97 18 147/96 92 08/21/16 15:45 92 Room Air 08/21/16 15:00 74 08/21/16 14:00 72 08/21/16 13:00 78 08/21/16 12:00 70 08/21/16 11:19 93 Room Air 08/21/16 11:19 79 08/21/16 11:19 98.0 79 16 134/84 93 08/21/16 11:00 74 08/21/16 10:00 76 Labs: Laboratory Tests Test 08/22/16 04:23 White Blood Count 18.3 TH/MM3 (4.0-11.0) Red Blood Count 3.35 MIL/MM3 (4.50-5.90) Hemoglobin 10.6 GM/DL (13.0-17.0) Hematocrit 31.0 % (39.0-51.0) Mean Corpuscular Volume 92.6 FL (80.0-100.0) Mean Corpuscular Hemoglobin 31.7 PG (27.0-34.0) Mean Corpuscular Hemoglobin 34.3 % Concent (32.0-36.0) Red Cell Distribution Width 13.9 % (11.6-17.2) Platelet Count 133 TH/MM3 (150-450) Mean Platelet Volume 9.0 FL (7.0-11.0) Neutrophils (%) (Auto) 82.3 % (16.0-70.0) Lymphocytes (%) (Auto) 11.4 % (9.0-44.0) Monocytes (%) (Auto) 6.0 % (0.0-8.0) Eosinophils (%) (Auto) 0.2 % (0.0-4.0) Basophils (%) (Auto) 0.1 % (0.0-2.0) Neutrophils # (Auto) 15.1 TH/MM3 (1.8-7.7) Lymphocytes # (Auto) 2.1 TH/MM3 (1.0-4.8) Monocytes # (Auto) 1.1 TH/MM3 (0-0.9) Eosinophils # (Auto) 0.0 TH/MM3 (0-0.4) Basophils # (Auto) 0.0 TH/MM3 (0-0.2) CBC Comment DIFF FINAL Differential Comment Sodium Level 136 MEQ/L (136-145) Potassium Level 3.7 MEQ/L (3.5-5.1) Chloride Level 99 MEQ/L (98-107) Carbon Dioxide Level 29.6 MEQ/L (21.0-32.0) Anion Gap 7 MEQ/L (5-15) Blood Urea Nitrogen 27 MG/DL (7-18) Creatinine 1.36 MG/DL (0.60-1.30) Estimat Glomerular Filtration 52 ML/MIN (>89) Rate Random Glucose 128 MG/DL (74-106) Calcium Level 8.6 MG/DL (8.5-10.1) Result Diagram: 08/22/16 0423 08/22/16 042 (1) Coronary artery disease (2) S/P CABG x 4 Plan: ASA, statin , BB, amiodarone keep SBP<130 OOB ambulate wean 02/ diuresis today chest tubes dc CM to eval for HHC (3) S/P ascending aortic aneurysm repair (4) S/P AVR (aortic valve replacement) (5) Hyperlipidemia Plan: on statin (6) Hypertension Plan: add BB, Keep [id number] prn hydralazine (7) HELEN (acute kidney injury) Plan: recheck indices in am / creatinine stable stable born with one kidney / avoid nephrotoxins (8) ICU psychosis Plan: had mild hallucinations last pm dc narcotics ultram for pain environmental cues Charisma Whitney MD Aug 22, 2016 09:49
[2016-08-22] MEDS: POLYETHYLENE GLYCOL 17 GM PKG PO SCH (09:50)
[2016-08-22] MEDS: SODIUM CHLORIDE 0.9% FLUSH 10 ML FLUSH IVF SCH ×2 (09:52→21:01)
[2016-08-22] MEDS ORDERED: traMADol HCL 50 MG TAB PO PRN (10:44)
[2016-08-22] MEDS: INSULIN ASPART SUPPLEMENTAL SCALE SQ SCH ×3 (11:12→21:00)
[2016-08-22] MEDS: PRAVASTATIN SOD 80 MG TAB PO SCH (21:02)
[2016-08-22] MEDS: SENNOSIDES 8.6 MG TAB PO SCH (21:02)
--- NOTE | 2016-08-22 23:59 | EKG ---
Date Performed: 08/22/2016 Time Performed: 14:18:06 PTAGE: 66 years EKG: Probable accelerated junctional rhythm Prolonged QT interval Inferior infarct - age undeter mined Lateral T wave changes are nonspecific Abnormal ECG PREVIOUS TRACING : 08/20/2016 06.35 DOCTOR: Maulik Miles Interpretating Date/Time 08/22/2016 23:57:29
[2016-08-23] VITALS (17 sets, daily range): BP systolic 111–123; BP diastolic 66–72; PULSE 66–76; RESP 16–18; TEMP 98.1–99; O2SAT 90–93
[2016-08-23] MEDS: PANTOPRAZOLE SOD 40 MG DELAYED RELEASE TAB PO SCH (06:00)
[2016-08-23] MEDS: INSULIN ASPART SUPPLEMENTAL SCALE SQ SCH ×2 (06:50→11:18)
[2016-08-23 07:00] LABS: HEMATOCRIT 30.6 % (39.0-51.0); MEAN CELL VOLUME 93.4 FL (80.0-100.0); MEAN CORPUSCULAR HEMOGLOBIN 30.8 PG (27.0-34.0); MEAN CORPUSCULAR HGB CONC 32.9 % (32.0-36.0); PLATELET COUNT 147 TH/MM3 (150-450); RED BLOOD COUNT 3.27 MIL/MM3 (4.50-5.90); RED CELL DISTRIBUTION WIDTH 14.1 % (11.6-17.2); REVIEW FLAG FINAL; WHITE BLOOD COUNT 13.8 TH/MM3 (4.0-11.0)
[2016-08-23 07:06] LABS: BICARBONATE 30.1 MEQ/L (21.0-32.0); MAGNESIUM 2.5 MG/DL (1.5-2.5); POTASSIUM 3.5 MEQ/L (3.5-5.1)
[2016-08-23] MEDS: MAGNESIUM HYDROXIDE SUSP 30 ML CUP PO SCH (08:26)
[2016-08-23] MEDS: ASPIRIN 81 MG CHEW TAB PO SCH (08:26)
[2016-08-23] MEDS: AMIODARONE 200 MG TAB PO SCH (08:26)
[2016-08-23] MEDS: DOCUSATE SODIUM 100 MG CAP PO SCH (08:27)
[2016-08-23] MEDS: CLOPIDOGREL 75 MG TAB PO SCH (08:27)
[2016-08-23] MEDS: MULTIVITAMINS/MINERALS THERAPEUTIC TAB PO SCH (08:27)
[2016-08-23] MEDS: METOPROLOL TARTRATE 25 MG TAB PO SCH (08:27)
[2016-08-23] MEDS: SODIUM CHLORIDE 0.9% FLUSH 10 ML FLUSH IVF SCH (08:29)
[2016-08-23] MEDS: POLYETHYLENE GLYCOL 17 GM PKG PO SCH (09:00)
--- NOTE | 2016-08-23 09:17 | PD.CAR.PN ---
CVT Progress Note Subjective/Hospital Course: Patient admitted through ED for left chest pain with known multivessel CAD and ascending TAA 5.2 cm scheduled for sugery 08/27/16. Currently, he is pain-free. Heart cath completed 08/14/16 75% distal LAD, Circ 90% OM 90% RCA 100% / EF 66% PMH: HTN, HLP plan for Coronary artery bypass grafting , ascending aortic aneurysm repair and aortic valve replacement / scheduled for WED 08/1908/17/16 pt had some chest pain this am 1-07/03 started on Heparin gtt / nitropaste , on ASA 08/18/16 had very minimal pain this am, scheduled for surgery in am no sts risk stratification 06/25 additional of ascending aortic aneurysm repair 08/19 surgery : Coronary Artery Bypass Grafting x 4 with left internal mammary artery (RODRIGUEZ) to left anterior descending (LAD), reverse saphenous vein graft to Ramus marginalis, sequential reverse saphenous vein graft to the OM1 and OM2 Aortic valve replacement with a 27 mm Trifecta [place] Tissue valve, Ascending Aortic Aneurysm Replacement with a 36 mm Gelweave Graft, Left Leg Endoscopic Vein [place] crystalloid 2100, 1250 cell saver, 250cc EBL one unit cryo one plt, 2 units FFP 08/20 pt had some agitation and confusion last night , required precedex, which is being weaned off on cleviprex to keep SBP<120 start BB and diuresis + 4kg / CT 280cc/ 12 hrs / on 5 liters needs aggressive pulm toileting OOB, ambulate CXR noted, 08/21 chest tube removed without difficulty had some mild hallucinations at night not sleeping well , needs environmental cues will dc narcotics/ ultram for pain gentle diuresis / + leukocytosis / CVC line dc will recheck in am , continue nebs, ezpap and acapella 08/22 Doing well. A-fib with RVR yesterday. Rate controlled today. On IV Amiodarone Monitor rhythm Constipated 08/23 In NSR Ambulating well Discharge home Objective: Vital Signs Date Time Temp Pulse Resp B/P Pulse Ox O2 Delivery O2 Flow Rate FiO2 08/23/16 07:01 72 08/23/16 06:00 72 08/23/16 05:00 72 08/23/16 04:00 72 08/23/16 03:30 99.0 76 113/66 92 08/23/16 03:30 Room Air 2.00 21 08/23/16 03:00 73 08/23/16 02:00 72 08/23/16 01:00 72 08/23/16 00:52 98.7 76 123/70 90 08/23/16 00:00 70 08/22/16 23:23 94 Room Air 08/22/16 23:00 70 08/22/16 22:18 21 08/22/16 22:00 70 08/22/16 21:00 78 08/22/16 20:00 93 Room Air 08/22/16 20:00 80 08/22/16 20:00 98.4 80 18 120/76 93 08/22/16 19:00 82 08/22/16 18:00 88 08/22/16 17:00 76 08/22/16 16:00 78 08/22/16 15:50 98.5 80 16 142/80 92 08/22/16 15:50 92 Room Air 08/22/16 15:00 79 08/22/16 14:00 78 08/22/16 13:00 79 08/22/16 12:00 102 08/22/16 11:00 112 08/22/16 11:00 92 Room Air 08/22/16 11:00 98.5 95 16 104/76 92 08/22/16 10:00 120 Labs: Laboratory Tests Test 08/23/16 05:21 White Blood Count 13.8 TH/MM3 (4.0-11.0) Red Blood Count 3.27 MIL/MM3 (4.50-5.90) Hemoglobin 10.1 GM/DL (13.0-17.0) Hematocrit 30.6 % (39.0-51.0) Mean Corpuscular Volume 93.4 FL (80.0-100.0) Mean Corpuscular Hemoglobin 30.8 PG (27.0-34.0) Mean Corpuscular Hemoglobin 32.9 % Concent (32.0-36.0) Red Cell Distribution Width 14.1 % (11.6-17.2) Platelet Count 147 TH/MM3 (150-450) Mean Platelet Volume 8.8 FL (7.0-11.0) Sodium Level 136 MEQ/L (136-145) Potassium Level 3.5 MEQ/L (3.5-5.1) Chloride Level 99 MEQ/L (98-107) Carbon Dioxide Level 30.1 MEQ/L (21.0-32.0) Anion Gap 7 MEQ/L (5-15) Blood Urea Nitrogen 22 MG/DL (7-18) Creatinine 1.32 MG/DL (0.60-1.30) Estimat Glomerular Filtration 54 ML/MIN (>89) Rate Random Glucose 101 MG/DL (74-106) Calcium Level 8.1 MG/DL (8.5-10.1) Magnesium Level 2.5 MG/DL (1.5-2.5) Result Diagram: 08/23/1652008/23/16520 (1) Coronary artery disease (2) S/P CABG x 4 Plan: ASA, statin , BB, amiodarone keep SBP<130 OOB ambulate wean 02/ diuresis today chest tubes dc CM to eval for HHC (3) S/P ascending aortic aneurysm repair (4) S/P AVR (aortic valve replacement) (5) Hyperlipidemia Plan: on statin (6) Hypertension Plan: add BB, Keep [id number] prn hydralazine (7) HELEN (acute kidney injury) Plan: recheck indices in am / creatinine stable stable born with one kidney / avoid nephrotoxins (8) ICU psychosis Plan: had mild hallucinations last pm dc narcotics ultram for pain environmental cues Charisma Whitney MD Aug 23, 2016 09:17
--- NOTE | 2016-08-23 09:18 | HHI.DS ---
Discharge Summary Admission Date Aug 15, 2016 at 19:08 Discharge Date: Aug 23, 2016 Admitting Diagnosis chest pain, multivessel coronary arter diseasen, thoracic aneurysm. CBC/BMP: 08/23/16 0521 08/23/16 0521 Significant Findings Laboratory Tests Test 08/21/16 08/22/16 08/23/16 04:30 04:23 05:21 White Blood Count 19.9 TH/MM3 18.3 TH/MM3 13.8 TH/MM3 (4.0-11.0) (4.0-11.0) (4.0-11.0) Red Blood Count 3.65 MIL/MM3 3.35 MIL/MM3 3.27 MIL/MM3 (4.50-5.90) (4.50-5.90) (4.50-5.90) Hemoglobin 11.7 GM/DL 10.6 GM/DL 10.1 GM/DL (13.0-17.0) (13.0-17.0) (13.0-17.0) Hematocrit 33.5 % 31.0 % 30.6 % (39.0-51.0) (39.0-51.0) (39.0-51.0) Platelet Count 143 TH/MM3 133 TH/MM3 147 TH/MM3 (150-450) (150-450) (150-450) Neutrophils (%) (Auto) 80.6 % 82.3 % (16.0-70.0) (16.0-70.0) Lymphocytes (%) (Auto) 8.5 % (9.0-44.0) Monocytes (%) (Auto) 10.8 % (0.0-8.0) Neutrophils # (Auto) 16.0 TH/MM3 15.1 TH/MM3 (1.8-7.7) (1.8-7.7) Monocytes # (Auto) 2.1 TH/MM3 1.1 TH/MM3 (0-0.9) (0-0.9) Blood Urea Nitrogen 33 MG/DL (7-18) 27 MG/DL (7-18) 22 MG/DL (7-18) Creatinine 1.44 MG/DL 1.36 MG/DL 1.32 MG/DL (0.60-1.30) (0.60-1.30) (0.60-1.30) Estimat Glomerular Filtration 49 ML/MIN (>89) 52 ML/MIN (>89) 54 ML/MIN (>89) Rate Random Glucose 139 MG/DL 128 MG/DL (74-106) (74-106) Calcium Level 8.1 MG/DL (8.5-10.1) Hospital Course Patient admitted through ED for left chest pain with known multivessel CAD and ascending TAA 5.2 cm scheduled for sugery 08/27/16. Currently, he is pain-free. Heart cath completed 08/14/16 75% distal LAD, Circ 90% OM 90% RCA 100% / EF 66% PMH: HTN, HLP plan for Coronary artery bypass grafting , ascending aortic aneurysm repair and aortic valve replacement / scheduled for WED 08/1908/17/16 pt had some chest pain this am 1-07/03 started on Heparin gtt / nitropaste , on ASA 08/18/16 had very minimal pain this am, scheduled for surgery in am no sts risk stratification 2/2 additional of ascending aortic aneurysm repair 08/19 surgery : Coronary Artery Bypass Grafting x 4 with left internal mammary artery (RODRIGUEZ) to left anterior descending (LAD), reverse saphenous vein graft to Ramus marginalis, sequential reverse saphenous vein graft to the OM1 and OM2 Aortic valve replacement with a 27 mm Trifecta [place] Tissue valve, Ascending Aortic Aneurysm Replacement with a 36 mm Gelweave Graft, Left Leg Endoscopic Vein [place] crystalloid 2100, 1250 cell saver, 250cc EBL one unit cryo one plt, 2 units FFP 08/20 pt had some agitation and confusion last night , required precedex, which is being weaned off on cleviprex to keep SBP<120 start BB and diuresis + 4kg / CT 280cc/ 12 hrs / on 5 liters needs aggressive pulm toileting OOB, ambulate CXR noted, 08/21 chest tube removed without difficulty had some mild hallucinations at night not sleeping well , needs environmental cues will dc narcotics/ ultram for pain gentle diuresis / + leukocytosis / CVC line dc will recheck in am , continue nebs, ezpap and acapella 08/22 Doing well. A-fib with RVR yesterday. Rate controlled today. On IV Amiodarone Monitor rhythm Constipated / In NSR Ambulating well Discharge home Pt Condition on Discharge: Good Discharge Disposition: Disch w/ Home Health Serv Discharge Instructions DIET: Follow Instructions for: Heart Healthy Diet Activities you can perform: Weight Bearing as Ronald, Shower Only-No Bath Activities to avoid: Lifting/Bending, Strenuous Activity, Driving Additional Activity Instructio: no lifting > 8 lbs or gallon of milk Follow up Referrals: Appointment for Follow Up Appointment for Follow Up Cardiology New Medications: 3-in-1 Bedside Toilet (3-in-1 Bedside Toilet) 1 Mis Mis 1 EA .ROUTE DIRECTED #1 EA Walker with Front Wheels (Walker with Front Wheels) 1 Mis Mis 1 EA .ROUTE DIRECTED #1 Ref 0 EA Amiodarone (Amiodarone) 200 Mg Tab 200 MG PO Q12HR heart rhythm #28 Ref 0 TAB Clopidogrel (Plavix) 75 Mg Tab 75 MG PO DAILY Blood Clot Prevention #31 Ref 2 TAB Docusate Sodium (Dok) 100 Mg Cap 100 MG PO BID Constipation #60 Ref 0 CAP Metoprolol Tartrate (Metoprolol Tartrate) 25 Mg Tab 25 MG PO BID Blood Pressure Management #60 Ref 2 TAB Multiple Vitamins W/ Minerals (Thera M Plus) 1 Tab 1 TAB PO DAILY multi vitamin #30 Ref 1 TAB Continued Medications: Aspirin DR (Aspirin EC) 81 Mg Tabdr 81 MG PO HS Ref 0 TAB Flaxseed (Linseed) (Flax Seed Oil) 1,000 Mg Cap 1000 MG PO BID Simvastatin (Simvastatin) 40 Mg Tab 40 MG PO HS Cholesterol Management #30 Ref 0 TAB Triamterene-Hydrochlorothiazide (Triamterene-Hydrochlorothiazide) 37.5-25 Mg Cap 1 CAP PO DAILY #30 Ref 0 CAP Discontinued Medications: Metoprolol Tartrate (Metoprolol Tartrate) 25 Mg Tab 25 MG PO HS #30 Ref 0 TAB Charisma Whitney MD Aug 23, 2016 09:18
[2016-08-27] MEDS ORDERED: DICL1GEL TOPICAL (10:29)
== END 2016-08-23 13:30 | disposition home health service (06) | DRG 217 ==
LOC: NEPC 17:29 → NEDA 19:08 → HCIS 22:01 → HCVR 08-18 17:49 → HCIN 08-20 15:25
PROVIDERS: ADMIT Family Medicine; ATTEND Thoracic Surgery (Cardiothoracic Vascular Surgery)
PROC: 4A023N7 Measurement of Cardiac Sampling and Pressure, Left Heart, Percutaneous Approach (ICD-10-PCS; 2016-08-14)
PROC: B2111ZZ Fluoroscopy of Multiple Coronary Arteries using Low Osmolar Contrast (ICD-10-PCS; 2016-08-14)
PROC: B2151ZZ Fluoroscopy of Left Heart using Low Osmolar Contrast (ICD-10-PCS; 2016-08-14)
PROC: 021209W Bypass Coronary Artery, Three Arteries from Aorta with Autologous Venous Tissue, Open Approach (ICD-10-PCS; 2016-08-19)
PROC: 06BQ4ZZ Excision of Left Saphenous Vein, Percutaneous Endoscopic Approach (ICD-10-PCS; 2016-08-19)
PROC: 02RX0JZ Replacement of Thoracic Aorta, Ascending/Arch with Synthetic Substitute, Open Approach (ICD-10-PCS; 2016-08-19)
PROC: 5A1221Z Performance of Cardiac Output, Continuous (ICD-10-PCS; 2016-08-19)
PROC: B246ZZ4 Ultrasonography of Right and Left Heart, Transesophageal (ICD-10-PCS; 2016-08-19)
PROC: 30233L1 Transfusion of Nonautologous Fresh Plasma into Peripheral Vein, Percutaneous Approach (ICD-10-PCS; 2016-08-19)
PROC: 30233R1 Transfusion of Nonautologous Platelets into Peripheral Vein, Percutaneous Approach (ICD-10-PCS; 2016-08-19)
PROC: 02100Z9 Bypass Coronary Artery, One Artery from Left Internal Mammary, Open Approach (ICD-10-PCS; principal; 2016-08-19 07:10)
PROC: 02RF08Z Replacement of Aortic Valve with Zooplastic Tissue, Open Approach (ICD-10-PCS; 2016-08-19 07:10)
DX: I25.119 Atherosclerotic heart disease of native coronary artery with unspecified angina pectoris (principal); N17.9 Acute kidney failure, unspecified; I71.2 Thoracic aortic aneurysm, without rupture; I25.82 Chronic total occlusion of coronary artery; R44.3 Hallucinations, unspecified; I35.1 Nonrheumatic aortic (valve) insufficiency; I10 Essential (primary) hypertension; E87.6 Hypokalemia; E78.5 Hyperlipidemia, unspecified; K59.00 Constipation, unspecified; E78.00 Pure hypercholesterolemia, unspecified; D72.829 Elevated white blood cell count, unspecified; I48.91 Unspecified atrial fibrillation; Z82.49 Family history of ischemic heart disease and other diseases of the circulatory system; Z79.82 Long term (current) use of aspirin; T40.605A Adverse effect of unspecified narcotics, initial encounter; Y92.230 Patient room in hospital as the place of occurrence of the external cause
CPT/HCPCS: 36430; 71010; 71020; 71275; 74174; 76937; 80048; 81001; 82550; 82552; 82948; 83036; 83735; 84484; 85014; 85025; 85027; 85384; 85610; 85730; 86850; 86900; 86901; 86920; 86927; 86965; 87015; 87070; 87102; 87116; 87205; 87206; 87641; 88305; 88311; 93005; 93306; 93318; 93458; 93880; 93970; 93998; 94002; 94010; 94150; 94640; 94664; 94667; 94668; C1768; C1769; C1893; C9248; C9399; J0131; J0282; J0360; J0690; J1644; J1650; J1815; J1817; J1940; J2060; J2150; J2250; J2440; J2720; J3010; J3370; J3475; J3480; J7030; J7060; P9016; P9017; P9035; P9047; Q9967

== ENCOUNTER 2016-10-31 09:34 | Emergency (ER) | payer MEDICARE ==
[~2016-10-31 09:34] MED LIST changes: +AMIO200T PO; -ASPI81CH CHEW; +ASPI81TA11 PO; +DICL1GEL TOPICAL; +DOCU1CAP39 PO; +METO25TA3 PO; +MISC-163; +PLAV75TA29 PO; +THERM PO; +WALKER WHEELS/F1 MIS
[2016-10-31 09:36] VITALS: BP 170/98; PULSE 66; RESP 20; TEMP 98.5; O2SAT 98
[2016-10-31 09:45] VITALS: BP_SYST 156; BP_SYST 170; BP_DIAS 101; BP_DIAS 98; PULSE 66; PULSE 69; RESP 18; O2SAT 96
[2016-10-31 09:53] VITALS: BP 156/101; PULSE 69; RESP 18; O2SAT 96
[2016-10-31] MEDS ORDERED: METO50TA PO (10:01)
--- NOTE | 2016-10-31 10:13 | PD ---
HPI Chief Complaint: Cardiac Complaint Time Seen by Provider: 09:51 Travel History International Travel<30 days: No Contact w/Intl Traveler<30days: No Traveled to known affect area: No History of Present Illness HPI This is a 66 year old gentleman who status post triple bypass, aortic aneurysm repair, aortic valve repair, on August 19, who presents today with complaints of 2 episodes of chest pain. The patient reports that yesterday he worked out heavy at cardiac rehabilitation. He states he normally does the treadmill at 3 miles per hour. He states he increased it to 3.5 miles per hour. He states last night he had an episode of left sided chest pain. He states it lasted very briefly and went away. He states he had another episode this morning. He reports questional tingling of his right hand as well. There is no nausea or diaphoresis. There is no shortness of breath. The patient is pain-free at this time. He's concerned and just wanted to make sure that everything was okay. There are no other complaints at the time of my examination. PFSH Past Medical History Hx Anticoagulant Therapy: Yes (PLAVIX) Cancer: No Cardiovascular Problems: Yes High Cholesterol: Yes Chest Pain: Yes (Just started about a month ago - never had it before then) Diminished Hearing: No Endocrine: No Gastrointestinal Disorders: Yes GERD: Yes (Only when eatting and not siting up a while ) Gout: Yes Genitourinary: Yes (only one kidney - from ) Hiatal Hernia: Yes (Still has it - no surgery performed) Hypertension: Yes Immune Disorder: No Musculoskeletal: Yes (Left knee Torn miniskus Hx. ( does not bother Pt. any longer)) Neurologic: No Psychiatric: No Reproductive: No Respiratory: No Immunizations Current: Yes Tetanus Vaccination: Unknown Past Surgical History Coronary Artery Bypass Graft: Yes Genitourinary Surgery: Yes (testicles) Other Surgery: Yes (deviated septum) Family History Family Hypercholesterolemia: Yes (parents) Social History Alcohol Use: Yes (1-2 daily) Tobacco Use: No Substance Use: No Allergies-Medications (Allergen,Severity, Reaction): Coded Allergies: No Known Allergies (Unverified , 10/31/16) Reported Meds & Prescriptions Reported Meds & Active Scripts Active Walker with Front Wheels (Device) 1 Mis Mis 1 Ea .ROUTE DIRECTED Thera M Plus (Multivitamins/Minerals Therapeutic) 1 Tab 1 Tab PO DAILY Dok (Docusate Sodium) 100 Mg Cap 100 Mg PO BID Plavix (Clopidogrel Bisulfate) 75 Mg Tab 75 Mg PO DAILY Amiodarone (Amiodarone HCl) 200 Mg Tab 200 Mg PO Q12HR Reported Metoprolol Tartrate 50 Mg Tab 50 Mg PO BID Aspirin EC (Aspirin) 81 Mg Tabdr 81 Mg PO HS Flax Seed Oil (Flaxseed (Linseed)) 1,000 Mg Cap 1,000 Mg PO BID Triamterene-Hydrochlorothiazide 37.5-25 Mg Cap 1 Cap PO DAILY Simvastatin 40 Mg Tab 40 Mg PO HS Review of Systems Except as stated in HPI: all other systems reviewed are Neg General / Constitutional: No: Fever, Chills HENT: No: Headaches, Lightheadedness Cardiovascular: Positive: Chest Pain or Discomfort, No: Palpitations, Irregular Rhythm Respiratory: No: Cough, Shortness of Breath Gastrointestinal: No: Nausea Musculoskeletal: No: Weakness, Pain Neurologic: Positive: Other (tingling to the right hand earlier this morning), No: Weakness, Dizziness, Headache Psychiatric: Positive: Anxiety (anxious feeling however no true anxiety.) Physical Exam Narrative GENERAL: Well-developed well-nourished gentleman in no acute respiratory distress. SKIN: Focused skin assessment warm/dry. HEAD: Atraumatic. Normocephalic. EYES: No scleral icterus. No injection or drainage. ENT: No nasal bleeding or discharge. Mucous membranes pink and moist. NECK: Trachea midline. Supple. CARDIOVASCULAR: Regular rate and rhythm. No murmur appreciated. Sternotomy scar is healing well with no evidence of wound dehiscence or infection. RESPIRATORY: No accessory muscle use. Clear to auscultation. Breath sounds equal bilaterally. GASTROINTESTINAL: Abdomen soft, non-tender, nondistended. Hepatic and splenic margins not palpable. MUSCULOSKELETAL: No obvious deformities. No clubbing. No cyanosis. No edema. NEUROLOGICAL: Awake and alert. No obvious cranial nerve deficits. Motor grossly within normal limits. Normal speech. Data Data Last Documented VS Vital Signs Date Time Temp Pulse Resp B/P Pulse Ox O2 Delivery O2 Flow Rate FiO2 10/31/16 11:57 64 18 144/96 97 Room Air 10/31/16 09:36 98.5 Orders Electrocardiogram (10/31/16 10:05) Basic Metabolic Panel (Bmp) (10/31/16 10:05) Ckmb (Isoenzyme) Profile (10/31/16 10:05) Complete Blood Count With Diff (10/31/16 10:05) Magnesium (Mg) (10/31/16 10:05) Prothrombin Time / Inr (Pt) (10/31/16 10:05) Act Partial Throm Time (Ptt) (10/31/16 10:05) Troponin I (10/31/16 10:05) Chest, Single Ap (10/31/16 10:05) Ecg Monitoring (10/31/16 10:05) Bilateral Bp Monitoring (10/31/16 10:05) Iv Access Insert/Monitor (10/31/16 10:05) Oximetry (10/31/16 10:05) Oxygen Administration (10/31/16 10:05) Sodium Chloride 0.9% Flush (Ns Flush) (10/31/16 10:15) Labs Laboratory Tests Test 10/31/16 10:00 White Blood Count 7.5 TH/MM3 Red Blood Count 5.28 MIL/MM3 Hemoglobin 14.3 GM/DL Hematocrit 45.1 % Mean Corpuscular Volume 85.4 FL Mean Corpuscular Hemoglobin 27.0 PG Mean Corpuscular Hemoglobin 31.6 % Concent Red Cell Distribution Width 16.6 % Platelet Count 270 TH/MM3 Mean Platelet Volume 7.9 FL Neutrophils (%) (Auto) 69.2 % Lymphocytes (%) (Auto) 20.0 % Monocytes (%) (Auto) 8.1 % Eosinophils (%) (Auto) 1.2 % Basophils (%) (Auto) 1.5 % Neutrophils # (Auto) 5.2 TH/MM3 Lymphocytes # (Auto) 1.5 TH/MM3 Monocytes # (Auto) 0.6 TH/MM3 Eosinophils # (Auto) 0.1 TH/MM3 Basophils # (Auto) 0.1 TH/MM3 CBC Comment DIFF FINAL Differential Comment Prothrombin Time 11.5 SEC Prothromb Time International 1.0 RATIO Ratio Activated Partial 27.7 SEC Thromboplast Time Sodium Level 140 MEQ/L Potassium Level 3.5 MEQ/L Chloride Level 104 MEQ/L Carbon Dioxide Level 24.2 MEQ/L Anion Gap 12 MEQ/L Blood Urea Nitrogen 11 MG/DL Creatinine 1.20 MG/DL Estimat Glomerular Filtration 61 ML/MIN Rate Random Glucose 129 MG/DL Calcium Level 9.5 MG/DL Magnesium Level 2.1 MG/DL Total Creatine Kinase 100 U/L Troponin I LESS THAN 0.02 NG/ML MDM Medical Decision Making Medical Screen Exam Complete: Yes Emergency Medical Condition: Yes Differential Diagnosis Musculoskeletal pain versus pleurisy versus ACS Narrative Course 66-year-old male who status post triple bypass, aortic valve repair, thoracic aorta sleeping, who presents with 2 episodes of short chest pain. The patient' s EKG shows no evidence of acute changes. It was compared with previous EKG. Cardiac enzymes are within normal limits. His blood glucose was slightly elevated at 129. The patient's symptoms sound musculoskeletal in etiology. Discussed with him that I think he may have overexerted himself yesterday while working out at cardiac rehabilitation. We discussed that he should take his exercise in moderation. He understands this and will do so. He is instructed return of he develops any recurrent pain, shortness breath, nausea, or any other reason the concerns them. I did discuss the case with Dr. Neal, covering for Dr. Butt, his cart a thoracic surgeon. He agreed with normal enzymes and no obvious findings on blood work that he could safely go home. He stated they would be happy to see him in the office this coming week as needed. He is also instructed to follow up with Dr. Mcintyre as well. Diagnosis Primary Impression: Atypical chest pain Additional Impressions: S/P ascending aortic aneurysm repair Status post coronary artery bypass graft Additional Instructions: Return if feeling worse. Have blood sugar rechecked when back in [place]. Follow up with Dr. Mcintyre when he returns. Also, Dr. butt will be happy to see you in the office this coming week, please call for an appointment. Check blood pressure daily and record. Disposition: 01 DISCHARGE HOME Condition: Stable Johnnie Geronimo MD Oct 31, 2016 10:13
[2016-10-31] MEDS ORDERED: SODIUM CHLORIDE 0.9% FLUSH 10 ML FLUSH IVF PRN (10:15)
--- NOTE | 2016-10-31 10:30 | RADRPT ---
EXAM DATE/TIME: 10/31/2016 10:21 [facility] COMPARISON: CHEST SINGLE AP, August 22, 2016, 4:49. INDICATIONS : Chest pain and numbness on left side of chest. Patient states he had open heart ginger maty 9 days ago. MEDICAL HISTORY : None. SURGICAL HISTORY : CABG. Valve replacement aneurysm repair. ENCOUNTER: Initial ACUITY: 1 day PAIN SCORE: 5/10 LOCATION: Bilateral chest FINDINGS: Sternal wires from previous median sternotomy are noted. Heart is enlarged. Pulmonary vascularity i s normal. There is no alveolar consolidation, pleural effusion or pneumothorax. CONCLUSION: 1. Previous bypass. 2. Mild compensated cardiomegaly. Mo Hernandez MD FACR on October 31, 2016 at 10:24 Board Certified Radiologist. This report was verified electronically.
[2016-10-31 10:49] LABS: AUTOMATED NEUTROPHIL # 5.2 TH/MM3 (1.8-7.7); BASOPHIL # 0.1 TH/MM3 (0-0.2); BASOPHIL % 1.5 % (0.0-2.0); EOSINOPHIL # 0.1 TH/MM3 (0-0.4); EOSINOPHIL % 1.2 % (0.0-4.0); HEMATOCRIT 45.1 % (39.0-51.0); HEMO FLAGS DIFF FINAL; LYMPHOCYTE # 1.5 TH/MM3 (1.0-4.8); MEAN CELL VOLUME 85.4 FL (80.0-100.0); MEAN CORPUSCULAR HGB CONC 31.6 % (32.0-36.0); MONO % 8.1 % (0.0-8.0); NEUT % 69.2 % (16.0-70.0); PLATELET COUNT 270 TH/MM3 (150-450); RED BLOOD COUNT 5.28 MIL/MM3 (4.50-5.90); RED CELL DISTRIBUTION WIDTH 16.6 % (11.6-17.2); WHITE BLOOD COUNT 7.5 TH/MM3 (4.0-11.0)
[2016-10-31 10:56] LABS: APTT (PATIENT) 27.7 SEC (24.3-30.1); PROTHROMBIN TIME - PATIENT 11.5 SEC (9.8-11.6)
[2016-10-31 11:08] LABS: ANION GAP 12 MEQ/L (5-15); BICARBONATE 24.2 MEQ/L (21.0-32.0); BLOOD UREA NITROGEN 11 MG/DL (7-18); CHLORIDE 104 MEQ/L (98-107); GLOMERULAR FILTRATION RATE 61 ML/MIN (>89); MAGNESIUM 2.1 MG/DL (1.5-2.5); POTASSIUM 3.5 MEQ/L (3.5-5.1); SODIUM (NA) 140 MEQ/L (136-145)
[2016-10-31 11:26] LABS: CREATINE KINASE 100 U/L (39-308)
[2016-10-31 11:57] VITALS: BP 144/96; PULSE 64; RESP 18; O2SAT 97
[2016-10-31 12:28] VITALS: BP 149/95
--- NOTE | 2016-11-01 09:47 | EKG ---
Date Performed: 10/31/2016 Time Performed: 09:47:51 PTAGE: 66 years EKG: Sinus rhythm MINIMAL VOLTAGE CRITERIA FOR LVH, CONSIDER NORMAL VARIANT INFERIOR MYOCARDIAL INFARCTION ABNORMAL EC G NO PREVIOUS TRACING DOCTOR: Chris Sosa Interpretating Date/Time 11/01/2016 09:39:13
== END 2016-10-31 12:30 | disposition home or self-care (01) ==
LOC: NEPC 09:34
DX: R07.89 Other chest pain (principal); R94.31 Abnormal electrocardiogram [ECG] [EKG]; I10 Essential (primary) hypertension; Z79.01 Long term (current) use of anticoagulants; Z95.1 Presence of aortocoronary bypass graft
CPT/HCPCS: 71010; 80048; 82550; 83735; 84484; 85025; 85610; 85730; 93005